=== PATIENT | male | born 1965 | race Caucasian/White ===

== ENCOUNTER 2018-03-11 22:25 | Inpatient (IN) ==
[2018-03-11] MEDS ORDERED: Sod Chloride 0.9% Inj 1,000 ML IV.SIG ONE (22:35)
--- NOTE | 2018-03-11 22:41 | ED ---
HPI General Chief Complaint: Abdominal Pain Stated Complaint: Urinating Blood Time Seen by Provider: 03/11/18 22:38 Source: patient Mode of arrival: EMS Limitations: no limitations History of Present Illness HPI narrative: 52-year-old male the presents to the ED for evaluation of hematuria and right-sided abdominal pain. Per patient has had the pain on and off for the past week. Hematuria about the same time. Per patient his blood in the urine. He has a history of this in the past. He denies any history of kidney stones but states having a history of kidney disease and has had to have dialysis in the past. Per patient he currently does not undergo dialysis as he is homeless. He does have a significant history of drug abuse and uses cocaine. Last used about 3 hours ago. He denies any chest pain or shortness of breath. No fevers chills or sweats. His main concern is that the blood has not improved and he seems to be getting worse. No blood thinner use. No other medical issues. Pain per patient is 6 out of 10 in comes and goes. Currently no pain. He seems to start of the upper abdomen and goes to the lower abdomen. Related Data Home Medications Medication Instructions Recorded Confirmed No Known Home Medications 03/11/18 03/11/18 Allergies Allergy/AdvReac Type Severity Reaction Status Date / Time *MDRO Multi-Drug Resistant AdvReac Unknown Hives Uncoded 03/11/18 23:13 Organism Review of Systems ROS Unobtainable All other systems reviewed negative except as stated in HPI PMFSH History History Provided By: Patient Medical History Medical History Hypertension (Acute) Renal disease (Acute) Surgical History Surgical History No history of previous surgery (Acute) Social History Social History Substance History: No History of Abuse and Active Abuse Second Hand Smoke Exposure: No Smoking Status: Current every day smoker Tobacco Type: Cigarettes How Often Do You Have a Drink Containing Alcohol: Never Exam Narrative Exam Narrative: GENERAL: Well-appearing but very disheveled SKIN: Focused skin assessment warm/dry. Multiple skin lesions on the arms and legs. HEAD: Atraumatic. Normocephalic. EYES: Pupils equal and round. No scleral icterus. No injection or drainage. ENT: No nasal bleeding or discharge. Mucous membranes pink and moist. Tongue is midline. No uvula deviation. NECK: Trachea midline. No JVD. CARDIOVASCULAR: Regular rate and rhythm. No murmur appreciated. RESPIRATORY: No accessory muscle use. Clear to auscultation. Breath sounds equal bilaterally. GASTROINTESTINAL: Abdomen soft, non-tender, nondistended. Hepatic and splenic margins not palpable. MUSCULOSKELETAL: No obvious deformities. No clubbing. No cyanosis. No edema. Full range of motion of the upper and lower extremities bilaterally. 2+ pulses bilaterally. NEUROLOGICAL: Awake and alert. No obvious cranial nerve deficits. Motor grossly within normal limits. Normal speech. PSYCHIATRIC: Appropriate mood and affect; insight and judgment normal. Course Consultations Consultation #1: The patient's case including history, pertinent physical examination findings, and laboratory studies were discussed with Dr. Boyle. It was agreed that the patient would be admitted to the hospitalist service. Initial Documented Vital Signs Temperature 98.0 F 03/11/18 23:23 Last Documented Vital Signs Temperature 98.0 F 03/11/18 23:23 Pulse Rate 72 03/12/18 05:06 Respiratory Rate 20 03/12/18 05:06 Blood Pressure 193/117 H 03/12/18 05:06 Pulse Oximetry 94 L 03/12/18 05:06 Medical Decision Making LAZARA Attestation LAZARA supervised visit: Yes Attestation: I, Dr. Reed, have reviewed the advance practice practitioner's documentation and am in agreement, met with the patient face to face, made the diagnosis, and the medical decision making was done by me. The patient was initially evaluated by Jasson, the physician patient care nursing assistant. Please see their complete history and physical. *My assessment and Findings: The patient presents with reported history of flank pain and hematuria. The patient reports a history of similar symptoms, however he denies ever having kidney stones in the past. He reports that he has a history of kidney disease and has required dialysis in the past. During the course of the patient's emergency department visit, the patient's history, examination, and differential diagnosis were reviewed with the patient. The patient was placed on a equipment monitor phototypesetting with oximetry and frequent blood pressure monitoring. The patient had IV access obtained and blood work sent for analysis. The patient was initially provided normal saline IV fluids. The patient's laboratory studies were reviewed and remarkable for a white count of 5.7, platelets 136, normal differential, hemoglobin 12.1.PT PTT within normal limits, chemistry is remarkable for oh protein corrected calcium of 6.0 which was supplemented with calcium chloride, lipase 66, creatinine 9.82, chloride 113, bicarb 15.6, BUN 71, albumin 3.1. It was written for the patient to be administered a Keene catheter to gravity, however the patient had an total 500 cc of urine output while in the emergency department and preferred not to have a catheter placed. Catheter was held at this time as on CT scan there is no evidence of urinary retention. Radiology studies were reviewed and remarkable for CT scan of the abdomen and pelvis shows findings of chronic pancreatitis, fluid-filled mildly distended small bowel loops throughout the abdomen with stool identified in the colon, no findings of obstruction, may be mild hypodynamic ileus, no obvious etiology for the patient's flank pain and hematuria. No hydronephrosis or stones. The patient will be admitted to the hospital for renal failure, hypocalcemia. The patient's results were discussed with the patient, including the plan of care. I explained that further testing and/ or monitoring is indicated based on the patient's history, examination, and/ or laboratory findings. Therefore, I recommended admission for additional evaluation. The patient expressed understanding and was agreeable with this plan. The patient was admitted to the hospital in guarded condition and sent to a bed under the care of [facility] service. [facility] Narrative Medical decision making narrative: 52-year-old male the presents to the ED for evaluation of flank pain and hematuria. Patient was properly examined and was found to have signs and symptoms consistent appears to be likely kidney stone. Labs and imaging were ordered. Case was signed out to my attending pending disposition and plan. Differential Diagnosis Differential Diagnosis: Kidney stone versus hematuria versus kidney infection versus UTI Medical Records Medical records reviewed: Yes I reviewed the patient's medical records. Lab Data Result diagrams: 03/11/18 23:09 03/11/18 23:09 Lab Results 03/11/18 03/11/18 03/11/18 Range/Units 23:09 23:09 23:21 WBC 5.7 (4.0-11.0) th/mm3 RBC 4.30 L (4.50-5.90) mil/mm3 Hgb 12.1 L (13.0-17.0) gm/dL Hct 36.5 L (39.0-51.0) % MCV 84.9 (80.0-100.0) fL MCH 28.2 (27.0-34.0) pg MCHC 33.3 (32.0-36.0) % RDW 14.6 (11.6-17.2) % Plt Count 136 L (150-450) th/mm3 MPV 9.3 (7.0-11.0) fL Neut % (Auto) 67.3 (16.0-70.0) % Lymph % (Auto) 21.0 (9.0-44.0) % [place] % (Auto) 7.5 (0.0-8.0) % Eos % (Auto) 3.2 (0.0-4.0) % Baso % (Auto) 1.0 (0.0-2.0) % Neut # (Auto) 3.8 (1.8-7.7) th/mm3 Lymph # (Auto) 1.2 (1.0-4.8) th/mm3 [place] # (Auto) 0.4 (0.0-0.9) th/mm3 Eos # (Auto) 0.2 (0.0-0.4) th/mm3 Baso # (Auto) 0.1 (0.0-0.2) th/mm3 WBC Differential . Differential Comment Auto diff final PT 10.7 (9.8-11.6) sec INR 1.1 Ratio APTT 28.7 (24.3-30.1) sec Sodium 143 (136-145) meq/L Potassium 4.7 (3.5-5.1) meq/L Chloride 113 H (98-107) meq/L Carbon Dioxide 15.6 L (21.0-32.0) meq/L Anion Gap 14 (5-15) meq/L BUN 71 H (7-18) mg/dL Creatinine 9.82 H (0.60-1.30) mg/dL Estimated GFR 6 L (>89) mL/min Random Glucose 94 (74-106) mg/dL Calcium 5.9 L* (8.5-10.1) mg/dL Prot Corrected Calcium 6.0 L* (8.5-10.1) mg/dL Total Bilirubin 0.3 (0.2-1.0) mg/dL AST 22 (15-37) U/L ALT 23 (12-78) U/L Alkaline Phosphatase 78 (45-117) U/L Total Creatine Kinase 215 (39-308) U/L Total Protein 6.9 (6.4-8.2) g/dL Albumin 3.1 L (3.4-5.0) g/dL Lipase 66 L (73-393) U/L Urine Color (Yellw/Straw) Urine Clarity (Clear) Urine pH (5.0-8.5) Ur Specific [place] (1.002-1.035) Urine Protein (Neg-Trace) mg/dL Urine Glucose (UA) (Negative) mg/dL Urine Ketones (Negative) mg/dL Urine Occult Blood (Negative) Urine Nitrate (Negative) Urine Bilirubin (Negative) Urine Urobilinogen (Less than 2) mg/dL Ur Leukocyte Esterase (Negative) Urine RBC (0-3) /hpf Urine WBC (0-5) /hpf Urine Bacteria (None) /hpf Urine Yeast (None) /hpf Micro UA Comment Urine Culture Comments 03/12/18 Range/Units 00:04 WBC (4.0-11.0) th/mm3 RBC (4.50-5.90) mil/mm3 Hgb (13.0-17.0) gm/dL Hct (39.0-51.0) % MCV (80.0-100.0) fL MCH (27.0-34.0) pg MCHC (32.0-36.0) % RDW (11.6-17.2) % Plt Count (150-450) th/mm3 MPV (7.0-11.0) fL Neut % (Auto) (16.0-70.0) % Lymph % (Auto) (9.0-44.0) % [place] % (Auto) (0.0-8.0) % Eos % (Auto) (0.0-4.0) % Baso % (Auto) (0.0-2.0) % Neut # (Auto) (1.8-7.7) th/mm3 Lymph # (Auto) (1.0-4.8) th/mm3 [place] # (Auto) (0.0-0.9) th/mm3 Eos # (Auto) (0.0-0.4) th/mm3 Baso # (Auto) (0.0-0.2) th/mm3 WBC Differential Differential Comment PT (9.8-11.6) sec INR Ratio APTT (24.3-30.1) sec Sodium (136-145) meq/L Potassium (3.5-5.1) meq/L Chloride (98-107) meq/L Carbon Dioxide (21.0-32.0) meq/L Anion Gap (5-15) meq/L BUN (7-18) mg/dL Creatinine (0.60-1.30) mg/dL Estimated GFR (>89) mL/min Random Glucose (74-106) mg/dL Calcium (8.5-10.1) mg/dL Prot Corrected Calcium (8.5-10.1) mg/dL Total Bilirubin (0.2-1.0) mg/dL AST (15-37) U/L ALT (12-78) U/L Alkaline Phosphatase (45-117) U/L Total Creatine Kinase (39-308) U/L Total Protein (6.4-8.2) g/dL Albumin (3.4-5.0) g/dL Lipase (73-393) U/L Urine Color Red (Yellw/Straw) Urine Clarity Hazy H (Clear) Urine pH 6.0 (5.0-8.5) Ur Specific [place] 1.008 (1.002-1.035) Urine Protein 500 or greater (Neg-Trace) mg/dL Urine Glucose (UA) 50 (Negative) mg/dL Urine Ketones Negative (Negative) mg/dL Urine Occult Blood Large H (Negative) Urine Nitrate Negative (Negative) Urine Bilirubin Negative (Negative) Urine Urobilinogen Less than 2 (Less than 2) mg/dL Ur Leukocyte Esterase Negative (Negative) Urine RBC (0-3) /hpf Urine WBC 8 H (0-5) /hpf Urine Bacteria Occasional H (None) /hpf Urine Yeast Few H (None) /hpf Micro UA Comment Culture not ind Urine Culture Comments Culture not ind Imaging Data Radiologist's impression: Abdomen/Pelvis CT 03/11/18 22:35 CONCLUSION: 1. CT findings characteristic of chronic pancreatitis. 2. Fluid-filled, mildly distended small bowel loops throughout the abdomen with stool identified in the colon. No findings of obstruction, however. Findings could represent a mild hypodynamic ileus. 3. I do not see an obvious etiology for the patient's flank pain and hematuria. Specifically, no hydronephrosis or stones. Discharge Plan Discharge Disposition Patient Disposition: 30 Still Patient Discharge Details Diagnosis: Acute renal failure, Hypocalcemia Physicians Team ED Provider: Nathalie Reed ED Midlevel Provider: Jasson Patricio Primary Care Provider: Primary Care Donna Roman Attending Provider: Mirlande Bush Other Providers: David Smith Discharge Interventions Interventions: Vital Signs Last Done: 03/11/18 23:26 Status ED Status: Admitted Patient
[2018-03-11 23:24] LABS: Baso # (Auto) 0.1 th/mm3 (0.0-0.2); Eos # (Auto) 0.2 th/mm3 (0.0-0.4); Eos % (Auto) 3.2 % (0.0-4.0); Hematocrit 36.5 % (39.0-51.0); Hemoglobin 12.1 gm/dL (13.0-17.0); Lymph # (Auto) 1.2 th/mm3 (1.0-4.8); Mean Corpuscular HGB Conc 33.3 % (32.0-36.0); Mean Corpuscular Hemoglobin 28.2 pg (27.0-34.0); Mean Corpuscular Volume 84.9 fL (80.0-100.0); Mean Platelet Volume 9.3 fL (7.0-11.0); Mono # (Auto) 0.4 th/mm3 (0.0-0.9); Mono % (Auto) 7.5 % (0.0-8.0); Neut # (Auto) 3.8 th/mm3 (1.8-7.7); Neut % (Auto) 67.3 % (16.0-70.0); Platelet Count 136 th/mm3 (150-450); Red Cell Distribution Width 14.6 % (11.6-17.2); White Blood Count 5.7 th/mm3 (4.0-11.0)
--- NOTE | 2018-03-11 23:37 | CT ---
EXAM DATE: 03/11/2018 10:57 PM EDT AGE/SEX: 52 years / Male INDICATIONS: Right lower quadrant pain, hematuria. CLINICAL DATA: This is the patient's initial encounter. Patient reports that signs and symptoms have been present for 1 week and indicates a pain score of 4/10. MEDICAL/SURGICAL HISTORY: Hypertension. Renal disease. None. RADIATION DOSE: 6.64 CTDI (mGy) COMPARISON: [facility] [place], CT ABDOMEN & PELVIS W/O CONTRAST, 01/06/2014. . TECHNIQUE: Multiple contiguous axial images were obtained through the abdomen. Images were obtained using multiple row detector helical technique. Using automated exposure control and adjustment of the mA and/or kV according to patient size, radiation dose was kept as low as reasonably achievable to o btain optimal diagnostic quality images. DICOM format image data is available electronically for rev iew and comparison. FINDINGS: Lower Lungs: Linear atelectasis/scarring in the lingula. Punctate granulomatous type calcification in the medial right lung base. Lung bases are otherwise clear Liver: The liver has a homogeneous density without space-occupying lesion. There is no dilation of th e biliary tree. Spleen: Homogeneous density without enlargement. Pancreas: Extensive calcification throughout the pancreas characteristic of chronic pancreatitis Kidneys: Normal in size and shape. No evidence of mass or hydronephrosis. Adrenal Glands: Unremarkable. Aorta: The aorta and proximal iliac vessels are grossly unremarkable without aneurysmal dilation. Bowel/Mesentery: Fluid-filled small bowel loops throughout the abdomen. Stool identified in the prox imal colon. Pattern is nonobstructive. Abdominal Wall: Intact. Retroperitoneum: No evidence of adenopathy in the retrocrural, para-aortic, or deep pelvic regions. Bladder: Contours are smooth. Reproductive Organs: Prostate is prominent at 4.1 cm Inguinal: The inguinal region is unremarkable without evidence of adenopathy. Bony Structures: Unremarkable. CONCLUSION: 1. CT findings characteristic of chronic pancreatitis. 2. Fluid-filled, mildly distended small bowel loops throughout the abdomen with stool identified in the colon. No findings of obstruction, however. Findings could represent a mild hypodynamic ileus. 3. I do not see an obvious etiology for the patient's flank pain and hematuria. Specifically, no hyd ronephrosis or stones. Electronically signed by: Ulices Sanford MD 03/11/2018 11:35 PM EDT
[2018-03-11 23:46] LABS: Albumin 3.1 g/dL (3.4-5.0); Calcium 5.9 mg/dL (8.5-10.1); Carbon Dioxide 15.6 meq/L (21.0-32.0); Potassium 4.7 meq/L (3.5-5.1); Total Protein 6.9 g/dL (6.4-8.2)
[2018-03-11 23:54] LABS: Activated Partial Thrombo Time 28.7 sec (24.3-30.1); INR 1.1 Ratio; Prothrombin Time 10.7 sec (9.8-11.6)
[2018-03-12] MEDS ORDERED: Calcium Gluconate Inj 1 GM in Dextrose 5% in Water Inj 100 ML IV.SIG ONE ×2 (00:01)
[2018-03-12] MEDS ORDERED: Sodium Chlor 0.9% Inj 500 ML IV.SIG ONE (00:01)
[2018-03-12] MEDS: Sod Chloride 0.9% Inj 1,000 ML IV.CONT SCH ×2 (00:26→12:15)
[2018-03-12 00:27] LABS: Bacteria,Urine Occasional /hpf; Bilirubin,Urine Negative (Negative); Clarity,Urine Hazy (Clear); Color,Urine Red (Yellw/Straw); Glucose,Urine (UA) 50 mg/dL (Negative); Leukocyte Esterase,Urine Negative (Negative); Nitrite,Urine Negative (Negative); Specific Gravity,Urine 1.008 (1.002-1.035)
[2018-03-12] MEDS ORDERED: Calcium Chloride Inj 1 GM/10 ML Syringe IV.PUSH ONE (00:59)
--- NOTE | 2018-03-12 02:39 | P.HPIM ---
History of Present Illness Primary Care Physician: No Primary Care Physician History of Present Illness: 52 y/o male with a history of HTN presented to the ED with complaints of decreased urination and hematuria for the last week. He states that for the last week he has been having blood in his urine with associated weakness. Denies any chest pain, sob, nausea or dysuria. He states years ago he had the same situation and underwent dialysis temporary. He states he does not take any medications or see a pcp. Inpatient Certification: I certify that the inpatient services were ordered in accordance with Medicare regulations governing the order. This includes certification that hospital inpatient services are reasonable and necessary and in the case of services not specified as inpatient-only under 42 CFR 419.22(n), that they are appropriately provided as inpatient services in accordance to with the 2-midnight benchmark under 43 CFR 412.3(e) Estimated Total Length of Stay (Days): 2 Plans for Post Hospital Care: Home Review of Systems All other systems reviewed negative except as stated in HPI [facility] - History History Provided By: Patient - Medical History Medical History: Medical History (Last Reviewed 03/11/18 @ 22:39 by KARISSA Garcia) Hypertension Renal disease - Surgical History Surgical History: Surgical History (Last Updated 03/12/18 @ 02:34 by NELLIE Carrion) No history of previous surgery - Tobacco History Second Hand Smoke Exposure: No Tobacco Use In Past 30 Days: Yes Smoking Status: Current every day smoker Tobacco Type: Cigarettes - Alcohol History How Often Do You Have a Drink Containing Alcohol: Never - Substance Use History Substance History: No History of Abuse, Active Abuse - Substance Use Type Crack/Cocaine Status: Active Route Used: Inhalation, Intravenously Reason for Use: Calm Down, Feels Good, Get High - Immunization History Tetanus Immunization: Unsure Hx Influenza Vaccine This Season: No Medications and Allergies Active Medications: Active Medications Sodium Chloride (Ns Inj) 1,000 mls @ 125 mls/hr IV.CONT .Q8H MELISSA Last Admin: 03/12/18 00:26 Dose: 125 mls/hr Allergies Allergy/AdvReac Type Severity Reaction Status Date / Time *MDRO Multi-Drug Resistant AdvReac Unknown Hives Uncoded 03/11/18 23:13 Organism Home Medications Medication Instructions Recorded Confirmed Type No Known Home Medications 03/11/18 03/11/18 History Exam Vital signs: Vital Signs 03/11/18 23:23 03/11/18 23:26 Temperature 98.0 F Pulse Rate 75 Respiratory Rate 18 Blood Pressure 165/111 H Pulse Oximetry 95 Intake & Output 03/11/18 03/11/18 03/12/18 06:59 18:59 06:59 Weight 78 kg Narrative: GENERAL: This is a well-nourished, well-developed patient, in no apparent distress. CARDIOVASCULAR: Regular rate and rhythm without murmurs, gallops, or rubs. RESPIRATORY: Clear to auscultation. Breath sounds equal bilaterally. No wheezes , rales, or rhonchi. GASTROINTESTINAL: Abdomen soft, non-tender, nondistended. Normal active bowel sounds MUSCULOSKELETAL: Extremities without clubbing, cyanosis, or edema. NEURO: Alert & Oriented x4 to person, place, time, situation. Moves all ext x4 Results - Labs CBC & Chem 7: 03/11/18 23:09 03/11/18 23:09 Labs: Short CBC 03/11/18 Range/Units 23:09 WBC 5.7 (4.0-11.0) th/mm3 Hgb 12.1 L (13.0-17.0) gm/dL Hct 36.5 L (39.0-51.0) % Plt Count 136 L (150-450) th/mm3 BMP 03/11/18 23:09 Sodium 143 Potassium 4.7 Chloride 113 H Carbon Dioxide 15.6 L BUN 71 H Creatinine 9.82 H Calcium 5.9 L* Cardiac Enzymes 03/11/18 Range/Units 23:09 Total Creatine Kinase 215 (39-308) U/L Liver Function 03/11/18 Range/Units 23:09 Total Bilirubin 0.3 (0.2-1.0) mg/dL AST 22 (15-37) U/L ALT 23 (12-78) U/L Alkaline Phosphatase 78 (45-117) U/L Albumin 3.1 L (3.4-5.0) g/dL Urine 03/12/18 Range/Units 00:04 Urine Color Red (Yellw/Straw) Urine Clarity Hazy H (Clear) Urine pH 6.0 (5.0-8.5) Ur Specific [place] 1.008 (1.002-1.035) Urine Protein 500 or greater (Neg-Trace) mg/dL Urine Glucose (UA) 50 (Negative) mg/dL - Imaging Impressions Abdomen/Pelvis CT 03/11/18 22:35 CONCLUSION: 1. CT findings characteristic of chronic pancreatitis. 2. Fluid-filled, mildly distended small bowel loops throughout the abdomen with stool identified in the colon. No findings of obstruction, however. Findings could represent a mild hypodynamic ileus. 3. I do not see an obvious etiology for the patient's flank pain and hematuria. Specifically, no hydronephrosis or stones. Caprini VTE Risk Assessment Caprini VTE Risk Assessment: No/Low Risk (score <= 1) Caprini Risk Assessment Model: Point Value = 1 Point Value = 2 Point Value = 3 Point Value = 5 Age 41-60 Minor surgery BMI > 25 kg/m2 Swollen legs Varicose veins or History of unexplained or recurrent spontaneous Oral contraceptives or hormone replacement Sepsis (< 1 month) Serious lung disease, including pneumonia (< 1 month) Abnormal pulmonary function Acute myocardial infarction Congestive heart failure (< 1 month) History of inflammatory bowel disease Medical patient at bed rest Age 61-74 Arthroscopic surgery Major open surgery (> 45 min) Laparoscopic surgery (> 45 min) Malignancy Confined to bed (> 72 hours) Immobilizing plaster cast Central venous access Age >= 75 History of VTE Family history of VTE Factor V Leiden Prothrombin [id number] Lupus anticoagulant Anticardiolipin antibodies Elevated serum homocysteine Heparin-induced thrombocytopenia Other congenital or acquired thrombophilia Stroke (< 1 month) Elective arthroplasty Hip, pelvis, or leg fracture Acute spinal cord injury (< 1 month) Prophylaxis Regimen: Total Risk Factor Score Risk Level Prophylaxis Regimen 0-1 Low Early ambulation 2 Moderate Order ONE of the following: *Sequential Compression Device (SCD) *Heparin 5000 units SQ BID 3-4 Higher Order ONE of the following medications: *Heparin 5000 units SQ TID *Enoxaparin/Lovenox 40 mg SQ daily (WT < 150 kg, CrCl > 30 mL/min) *Enoxaparin/Lovenox 30 mg SQ daily (WT < 150 kg, CrCl > 10-29 mL/min) *Enoxaparin/Lovenox 30 mg SQ BID (WT < 150 kg, CrCl > 30 mL/min) AND/OR *Sequential Compression Device (SCD) 5 or more Highest Order ONE of the following medications: *Heparin 5000 units SQ TID (Preferred with Epidurals) *Enoxaparin/Lovenox 40 mg SQ daily (WT < 150 kg, CrCl > 30 mL/min) *Enoxaparin/Lovenox 30 mg SQ daily (WT < 150 kg, CrCl > 10-29 mL/min) *Enoxaparin/Lovenox 30 mg SQ BID (WT < 150 kg, CrCl > 30 mL/min) AND *Sequential Compression Device (SCD) Assessment and Plan - Plan 52 y/o male with a history of HTN presented to the ED with complaints of decreased urination and hematuria for the last week. Acute renal failure, creatine 9.[address] reviewed and shows no hydronephrosis or stones. -Consult nephrology for evaluation -Avoid nephrotoxins -IVF Hypocalcemia Calcium 5.9 -1 gm calcium given -Labs in AM DVT prophylaxis: Heparin Discussed Condition With: Patient and RN
[2018-03-12 07:56] LABS: Baso % (Auto) 0.9 % (0.0-2.0); Eos # (Auto) 0.2 th/mm3 (0.0-0.4); Eos % (Auto) 4.3 % (0.0-4.0); Hematocrit 36.1 % (39.0-51.0); Hemoglobin 11.9 gm/dL (13.0-17.0); Lymph # (Auto) 1.3 th/mm3 (1.0-4.8); Lymph % (Auto) 26.7 % (9.0-44.0); Mean Corpuscular HGB Conc 33.1 % (32.0-36.0); Mean Corpuscular Hemoglobin 28.3 pg (27.0-34.0); Mean Corpuscular Volume 85.6 fL (80.0-100.0); Mean Platelet Volume 9.3 fL (7.0-11.0); Mono # (Auto) 0.4 th/mm3 (0.0-0.9); Mono % (Auto) 7.9 % (0.0-8.0); Neut # (Auto) 2.8 th/mm3 (1.8-7.7); Neut % (Auto) 60.2 % (16.0-70.0); Platelet Count 130 th/mm3 (150-450); Red Blood Count 4.22 mil/mm3 (4.50-5.90); Red Cell Distribution Width 14.8 % (11.6-17.2); White Blood Count 4.7 th/mm3 (4.0-11.0)
[2018-03-12 08:27] LABS: Calcium 6.3 mg/dL (8.5-10.1); Carbon Dioxide 14.4 meq/L (21.0-32.0); Potassium 4.9 meq/L (3.5-5.1)
[2018-03-12 08:42] LABS: Total Protein 6.8 g/dL (6.4-8.2)
[2018-03-12] MEDS: hydrALAZINE 50 MG Tablet PO SCH ×3 (08:43→18:18)
[2018-03-12] MEDS: amLODIPine 10 MG Tablet PO SCH (08:43)
[2018-03-12] MEDS ORDERED: CALCIUM CHLORIDE IV.SIG ONE (12:00)
[2018-03-12] MEDS ORDERED: SODIUM CHLOR 0.9% IV.SIG ONE (12:00)
[2018-03-12 12:15] LABS: Amphetamine Screen,Urine Neg (Neg); Barbiturate Screen,Urine Neg (Neg); Cannabinoid Screen,Urine Neg (Neg); Cocaine Screen,Urine Pos (Neg); Opiate Screen,Urine Neg (Neg)
[2018-03-12 14:57] LABS: Hepatitits B Surface Antigen Nonreactive (Nonreactive)
[2018-03-12 15:23] LABS: Hepatitis A IgM Antibody Nonreactive (Nonreactive)
--- NOTE | 2018-03-12 16:06 | P.CONNP ---
<Sydnee Morrison - Last Filed: 03/12/18 16:25> History of Present Illness Service: Nephrology Consult date: 03/12/18 Reason for Consult: Acute on CKD Primary Care Provider: No Primary Care Physician Family Provider: No Primary Care Physician Chief Complaint: Hematuria History of Present Illness: This is a disheveled and homeless 52 y/o male patient. He came to ER for hematuria and decreased urine output for two weeks. PMH includes Hepatitis C ( untreated ), HTN, tobacco use, cocaine use, chronic pancreatitis. He also has CKD. He was on HD for HARSH in 2013, unclear for how long. He had membranous GN biopsy proven and was on oral prednisone for some time. In 2016 his creatinine was 2.3. The patient was lost to follow up, does not have a PCP, and does not take care of himself. He comes to the hospital with a Creatinine over 9, BUN 71 , CO2 14, K 4.9. We were consulted to assist with management. He is making urine , and is a full code. Review of Systems Cardiovascular: Denies chest pain Respiratory: Denies shortness of breath Gastrointestinal: Denies abdominal pain Genitourinary: Reports blood in urine, Reports decreased urination, Denies difficulty urinating Musculoskeletal: Denies abnormal walking PMFSH - History History Provided By: Patient - Medical History Medical History: Medical History (Last Reviewed 03/11/18 @ 22:39 by KARISSA Garcia) Hypertension Renal disease - Surgical History Surgical History: Surgical History (Last Updated 03/12/18 @ 02:34 by NELLIE Carrion) No history of previous surgery - Tobacco History Second Hand Smoke Exposure: Yes Tobacco Use In Past 30 Days: Yes Smoking Status: Current every day smoker Tobacco Type: Cigarettes Packs Per Day: 1 - Alcohol History How Often Do You Have a Drink Containing Alcohol: Never - Substance Use History Substance History: No History of Abuse, Active Abuse - Substance Use Type Crack/Cocaine Status: Active Route Used: Inhalation, Intravenously Reason for Use: Calm Down, Feels Good, Get High - Immunization History Tetanus Immunization: Unsure Hx Influenza Vaccine This Season: No Medications and Allergies Allergies Allergy/AdvReac Type Severity Reaction Status Date / Time *MDRO Multi-Drug Resistant AdvReac Unknown Hives Uncoded 03/11/18 23:13 Organism Home Medications Medication Instructions Recorded Confirmed Type No Known Home Medications 03/11/18 03/11/18 History Active Medications: Active Medications Amlodipine Besylate (Norvasc) 10 mg PO DAILY [facility] Last Admin: 03/12/18 08:43 Dose: 10 mg Bumetanide (Bumex Inj) 2 mg IV.PUSH TID [facility] Clonidine HCl (Catapres) 0.1 mg PO Q6H PRN PRN Reason: SEE LABEL COMMENTS Hydralazine HCl (Apresoline) 50 mg PO TID [facility] Last Admin: 03/12/18 12:07 Dose: 50 mg Sodium Chloride (Ns Inj) 1,000 mls @ 125 mls/hr IV.CONT .Q8H [facility] Last Admin: 03/12/18 12:15 Dose: 125 mls/hr Ondansetron HCl (Zofran Odt) 4 mg PO Q6H PRN PRN Reason: NAUSEA OR VOMITING Exam Vital signs: Vital Signs 03/11/18 23:23 03/11/18 23:26 03/12/18 03:24 Temperature 98.0 F Pulse Rate 75 68 Respiratory Rate 18 20 Blood Pressure 165/111 H 180/113 H Pulse Oximetry 95 95 03/12/18 05:06 03/12/18 07:59 03/12/18 08:47 Temperature Pulse Rate 72 72 Respiratory Rate 20 16 Blood Pressure 193/117 H 203/125 H 195/130 H Pulse Oximetry 94 L 95 03/12/18 09:50 03/12/18 10:01 03/12/18 11:14 Temperature Pulse Rate 85 Respiratory Rate Blood Pressure 201/128 H 190/115 H 164/98 H Pulse Oximetry 03/12/18 12:03 Temperature Pulse Rate Respiratory Rate Blood Pressure 147/89 H Pulse Oximetry Intake & Output 03/11/18 03/12/18 03/12/18 18:59 06:59 18:59 Intake Total 1093.5 / 1093.5 Output Total 450 / 450 450 / 450 Balance -450 / -450 643.5 / 643.5 Weight 78 kg Intake: IV 1093.5 / 1093.5 NS Inj 1,000 ML @ 125 mls/hr IV 1000 / 1000 .CONT .Q8H [facility] Rx#:[id number] Calcium Chloride Inj 0.35 GM In 93.5 / 93.5 NS Inj 90 ML @ 100 mls/hr IV. SIG ONCE ONE Rx#:[id number] Output: Urine 450 / 450 450 / 450 - Constitutional no acute distress, chronically ill appearing, disheveled - Routine HEENT Exam Head: Present: normocephalic - Routine Neck Exam Present: supple - Routine Respiratory Exam Present: rales, rhonchi, wheezes. Absent: accessory muscle use - Routine Cardiovascular Exam Present: RRR, S1, S2. Absent: murmur - Routine Abdominal Exam Present: soft, normoactive bowel sounds - Routine Extremities Exam Present: edema, full ROM, pulses intact - Routine Skin Exam Present: intact, warm - Routine Neurological Exam Present: alert, oriented X3, CN II-XII intact Results - Lab Results 03/12/18 05:45 03/12/18 05:45 Most recent lab results Calcium 6.3 mg/dL (8.5-10.1) L* 03/12/18 05:45 - Image Kidney/bladder ultrasound: other (CT abd/pel reviewed ) Assessment and Plan - Assessment (1) Acute renal failure Code(s): N17.9 - Acute kidney failure, unspecified Status: Acute Plan: Acute on CKD. 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 He is nearing the need of starting dialysis. Start Bumex 2 mg TID IV. Make NPO tonight for PermCath placement tomorrow. We have asked the RN to make sure he has a shower in preparation of CVC placement to prevent infection. He is homeless and uninsured. Will need these issues addressed for outpatient HD plans. May need to enter the transitional program at [facility] [place]. PO fluids encouraged. Start oral bicarbonate for metabolic acidosis, will improve with dialysis. Obtain complement levels, hepatitis panel, cryoglobulin level. Repeat labs tomorrow Monitor urine output. (2) HTN (hypertension) Code(s): I10 - Essential (primary) hypertension Status: Acute Plan: On Amlodipine and Hydralazine. PRN clonidine was ordered. Start Bumex. (3) Secondary hyperparathyroidism of renal origin Code(s): N25.81 - Secondary hyperparathyroidism of renal origin Status: Acute Plan: With hypocalcemia Start vitamin D and calcitriol. Ordered IV calcium earlier today. <David Smith - Last Filed: 03/12/18 20:48> History of Present Illness Primary Care Provider: No Primary Care Physician Family Provider: No Primary Care Physician [facility] - Medical History Medical History: Medical History (Last Reviewed 03/11/18 @ 22:39 by KARISSA Garcia) Hypertension Renal disease - Surgical History Surgical History: Surgical History (Last Updated 03/12/18 @ 02:34 by NELLIE Carrion) No history of previous surgery Medications and Allergies Active Medications: Active Medications Amlodipine Besylate (Norvasc) 10 mg PO DAILY [facility] Last Admin: 03/12/18 08:43 Dose: 10 mg Bumetanide (Bumex Inj) 2 mg IV.PUSH TID [facility] Last Admin: 03/12/18 18:18 Dose: 2 mg Calcitriol (Rocaltrol) 0.25 mcg PO DAILY [facility] Last Admin: 03/12/18 18:18 Dose: 0.25 mcg Clonidine HCl (Catapres) 0.1 mg PO Q6H PRN PRN Reason: SEE LABEL COMMENTS Hydralazine HCl (Apresoline) 50 mg PO TID [facility] Last Admin: 03/12/18 18:18 Dose: 50 mg Ondansetron HCl (Zofran Odt) 4 mg PO Q6H PRN PRN Reason: NAUSEA OR VOMITING Vitamin D (Vitamin D3) 1,000 unit PO DAILY [facility] Last Admin: 03/12/18 18:18 Dose: 1,000 unit Exam Vital signs: Vital Signs 03/11/18 23:23 03/11/18 23:26 03/12/18 03:24 Temperature 98.0 F Pulse Rate 75 68 Respiratory Rate 18 20 Blood Pressure 165/111 H 180/113 H Pulse Oximetry 95 95 03/12/18 05:06 03/12/18 07:59 03/12/18 08:47 Temperature Pulse Rate 72 72 Respiratory Rate 20 16 Blood Pressure 193/117 H 203/125 H 195/130 H Pulse Oximetry 94 L 95 03/12/18 09:50 03/12/18 10:01 03/12/18 11:14 Temperature Pulse Rate 85 Respiratory Rate Blood Pressure 201/128 H 190/115 H 164/98 H Pulse Oximetry 03/12/18 12:03 03/12/18 16:00 Temperature 97.4 F L Pulse Rate 70 Respiratory Rate 20 Blood Pressure 147/89 H 149/90 H Pulse Oximetry 95 Intake & Output 03/12/18 03/12/18 03/13/18 06:59 18:59 06:59 Intake Total 1093.5 / 1093.5 Output Total 450 / 450 450 / 450 Balance -450 / -450 643.5 / 643.5 Weight 78 kg Intake: IV 1093.5 / 1093.5 NS Inj 1,000 ML @ 125 mls/hr IV 1000 / 1000 .CONT .Q8H [facility] Rx#:[id number] Calcium Chloride Inj 0.35 GM In 93.5 / 93.5 NS Inj 90 ML @ 100 mls/hr IV. SIG ONCE ONE Rx#:[id number] Output: Urine 450 / 450 450 / 450 Results - Lab Results 03/12/18 05:45 03/12/18 05:45 Most recent lab results Calcium 6.3 mg/dL (8.5-10.1) L* 03/12/18 05:45 Assessment and Plan - Assessment (1) Acute renal failure Code(s): N17.9 - Acute kidney failure, unspecified Status: Acute (2) HTN (hypertension) Code(s): I10 - Essential (primary) hypertension Status: Acute (3) Secondary hyperparathyroidism of renal origin Code(s): N25.81 - Secondary hyperparathyroidism of renal origin Status: Acute - Attending Attestation patient was seen and examined. He had developed HARSH in 2015 when he was on dialysis. He has Hepatitis C positivity. At that time, he had low complements, and positive Cryoglobulin. 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 It appears that his renal function improved and he was taken off dialytic support. He presents today with significantly declined renal function. Likely needs to restart dialysis. He has not followed with any cardroom manager or PCP. He has not had treatment for Hepatitis C. Bumex today, but most likely he will need to restart dialysis. <Sydnee Morrison - Last Filed: 03/12/18 16:25> (1) Acute renal failure Qualifiers: Acute renal failure type: unspecified Qualified Code(s): N17.9 - Acute kidney failure, unspecified <David Smith - Last Filed: 03/12/18 20:48> (1) Acute renal failure Qualifiers: Acute renal failure type: unspecified Qualified Code(s): N17.9 - Acute kidney failure, unspecified
[2018-03-12] MEDS: Calcitriol 0.25 MCG Capsule PO SCH (18:18)
[2018-03-13 03:51] LABS: Albumin/Creatinine Ratio 6902 mg/g (<17)
[2018-03-13 08:38] LABS: Calcium 6.9 mg/dL (8.5-10.1); Potassium 5.1 meq/L (3.5-5.1)
[2018-03-13] MEDS: hydrALAZINE 50 MG Tablet PO SCH ×3 (08:47→18:32)
[2018-03-13] MEDS: Calcitriol 0.25 MCG Capsule PO SCH (08:47)
[2018-03-13] MEDS: amLODIPine 10 MG Tablet PO SCH (08:47)
[2018-03-13 09:16] LABS: Total Protein 6.5 g/dL (6.4-8.2)
[2018-03-13] MEDS ORDERED: Acetaminophen 325 MG Tablet PO PRN (11:12)
[2018-03-13] MEDS ORDERED: Albumin Human 25% Inj 100 ML IV.SIG PRN (11:12)
[2018-03-13] MEDS ORDERED: Heparin 10,000 UNITS/10 ML Vial (for IV use) OTHER PRN (11:12)
[2018-03-13] MEDS ORDERED: Sod Chloride 0.9% Inj 1,000 ML OTHER PRN ×2 (11:12)
[2018-03-13] MEDS ORDERED: Sod Chloride 0.9% Inj 1,000 ML IV.CONT PRN (11:12)
[2018-03-13] MEDS ORDERED: Gelatin 12 MM/7 MM Topical Foam TOPICAL PRN (11:12)
--- NOTE | 2018-03-13 11:30 | P.PNNP ---
Subjective Interval history: Renal function has not improved. He is making urine. Currently NPO. <Sydnee Morrison - Last Filed: 03/13/18 11:20> Physical Exam Vital signs: Vital Signs 03/12/18 12:03 03/12/18 16:00 03/12/18 21:45 Temperature 97.4 F L 97.8 F Pulse Rate 70 78 Respiratory Rate 20 17 Blood Pressure 147/89 H 149/90 H 160/99 H Pulse Oximetry 95 97 03/13/18 00:50 03/13/18 05:45 Temperature 98.2 F 98 F Pulse Rate 60 69 Respiratory Rate 19 17 Blood Pressure 145/88 H Pulse Oximetry 98 98 Intake & Output 03/12/18 03/13/18 03/13/18 18:59 06:59 18:59 Intake Total 1093.5 / 1093.5 1400 / 1400 Output Total 450 / 450 400 / 400 Balance 643.5 / 643.5 1000 / 1000 Weight 78 kg Intake: IV 1093.5 / 1093.5 NS Inj 1,000 ML @ 125 mls/hr IV 1000 / 1000 .CONT .Q8H [facility] Rx#:[id number] Calcium Chloride Inj 0.35 GM In 93.5 / 93.5 NS Inj 90 ML @ 100 mls/hr IV. SIG ONCE ONE Rx#:[id number] Oral 1400 / 1400 Output: Urine 450 / 450 400 / 400 Other: # Bowel Movements 0 - Constitutional no acute distress, average body habitus, chronically ill appearing, disheveled - Routine HEENT Exam Head: Present: normocephalic Eye: Present: EOMI - Routine Neck Exam Present: supple, full ROM - Routine Respiratory Exam Present: CTA bilaterally. Absent: accessory muscle use - Routine Cardiovascular Exam Present: RRR, S1, S2 - Routine Abdominal Exam Present: soft, normoactive bowel sounds - Routine Extremities Exam Present: full ROM. Absent: edema - Routine Skin Exam Present: warm, lesions, wounds - Routine Neurological Exam Present: alert, oriented X3, CN II-XII intact - Detailed Neurological Exam: Coma Scale Eye Opening: Spontaneous Verbal Response: Oriented Motor Response: Obey commands Thaddeus Coma Scale Total: 15 - Routine Psychiatric Exam Present: normal affect, normal thought process <Sydnee Morrison - Last Filed: 03/13/18 11:20> Vital signs: Vital Signs 03/12/18 21:45 03/13/18 00:50 03/13/18 05:45 Temperature 97.8 F 98.2 F 98 F Pulse Rate 78 60 69 Respiratory Rate 17 19 17 Blood Pressure 160/99 H 145/88 H Pulse Oximetry 97 98 98 03/13/18 08:00 03/13/18 12:00 Temperature 98.2 F 98.1 F Pulse Rate 74 70 Respiratory Rate 23 22 Blood Pressure 153/89 H 140/80 Pulse Oximetry 93 L 96 Intake & Output 03/13/18 03/13/18 03/14/18 06:59 18:59 06:59 Intake Total 1400 / 1400 Output Total 400 / 400 1500 / 1500 Balance 1000 / 1000 -1500 / -1500 Weight 78 kg Intake: Oral 1400 / 1400 Output: Urine 400 / 400 Hemodialysis Amount 1500 / 1500 Other: # Bowel Movements 0 <David Smith - Last Filed: 03/13/18 19:40> Assessment and Plan - Assessment (1) Acute renal failure Code(s): N17.9 - Acute kidney failure, unspecified Status: Acute Qualifiers: Acute renal failure type: unspecified Qualified Code(s): N17.9 - Acute kidney failure, unspecified Plan: Prior biopsy proven MPGN, 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 In 2016 his Creatinine was 2.3. -Low complement levels noted. Renal function has not improved, although he is non oliguric Needs to start dialysis. NPO now, pending PermCath placement today, IR consulted. HD today and tomorrow (2 hr treatments both days), then we will maintain on TTS schedule. Metabolic acidosis should improve with dialysis Start high protein, low K diet. Obtain daily labs. We will schedule for a renal biopsy to determine if this is reversible or treatable. NPO after midnight again tonight. He is homeless and uninsured. Will need these issues addressed for outpatient HD plans. [place] need [place] [facility] but will need to be in a facility (SNF or LTC) prior to being accepted Appreciate CM assistance. . PO fluids encouraged. IVF not required. Epogen not required. (2) Secondary hyperparathyroidism of renal origin Code(s): N25.81 - Secondary hyperparathyroidism of renal origin Status: Acute Plan: With hypocalcemia On vitamin D and calcitriol. Given IV calcium on admission. (3) HTN (hypertension) Code(s): I10 - Essential (primary) hypertension Status: Acute Plan: On Amlodipine and Hydralazine. PRN clonidine was ordered. Start Bumex. <Sydnee Morrison - Last Filed: 03/13/18 11:20> - Assessment (1) Acute renal failure Code(s): N17.9 - Acute kidney failure, unspecified Status: Acute Qualifiers: Acute renal failure type: unspecified Qualified Code(s): N17.9 - Acute kidney failure, unspecified (2) Secondary hyperparathyroidism of renal origin Code(s): N25.81 - Secondary hyperparathyroidism of renal origin Status: Acute (3) HTN (hypertension) Code(s): I10 - Essential (primary) hypertension Status: Acute - Attending Attestation patient was seen and examined. Agree with above assessment and plan. <David Smith - Last Filed: 03/13/18 19:40>
--- NOTE | 2018-03-13 11:53 | P.PNIM ---
Subjective Interval history: Minimal improvements are seen in renal function overnight. Patient has no complaints when seen. He is n.p.o. for Vas-Cath placement later today. Physical Exam Vital signs: Vital Signs 03/12/18 12:03 03/12/18 16:00 03/12/18 21:45 Temperature 97.4 F L 97.8 F Pulse Rate 70 78 Respiratory Rate 20 17 Blood Pressure 147/89 H 149/90 H 160/99 H Pulse Oximetry 95 97 03/13/18 00:50 03/13/18 05:45 Temperature 98.2 F 98 F Pulse Rate 60 69 Respiratory Rate 19 17 Blood Pressure 145/88 H Pulse Oximetry 98 98 Intake & Output 03/12/18 03/13/18 03/13/18 18:59 06:59 18:59 Intake Total 1093.5 / 1093.5 1400 / 1400 Output Total 450 / 450 400 / 400 Balance 643.5 / 643.5 1000 / 1000 Weight 78 kg Intake: IV 1093.5 / 1093.5 NS Inj 1,000 ML @ 125 mls/hr IV 1000 / 1000 .CONT .Q8H [facility] Rx#:[id number] Calcium Chloride Inj 0.35 GM In 93.5 / 93.5 NS Inj 90 ML @ 100 mls/hr IV. SIG ONCE ONE Rx#:[id number] Oral 1400 / 1400 Output: Urine 450 / 450 400 / 400 Other: # Bowel Movements 0 Narrative: GENERAL: NAD, A&Ox3 HEAD: Normocephalic. NECK: Supple, trachea midline. No lymphadenopathy. EYES: No scleral icterus. No injection or drainage. CARDIOVASCULAR: Regular rate and rhythm without murmurs, gallops, or rubs. RESPIRATORY: Breath sounds equal bilaterally. No accessory muscle use. GASTROINTESTINAL: Abdomen soft, non-tender, nondistended. MUSCULOSKELETAL: No cyanosis, or edema. SKIN: Warm and dry. NEURO: No focal neurological deficits. Results - Labs CBC & Chem 7: 03/12/18 05:45 03/13/18 07:42 Laboratory Results - last 24 hr 03/12/18 03/12/18 03/12/18 09:45 09:45 11:18 Sodium Potassium Chloride Carbon Dioxide Anion Gap BUN Creatinine Estimated GFR Random Glucose Calcium Prot Corrected Calcium Total Protein Vitamin D 25-Hydroxy 26.9 L PTH Intact Ur Microalbumin mg/L 2644 U Creat (Microalbumin) 38.3 Microalb/Creat Ratio 6902 H Urine Opiates Screen Neg Ur Barbiturates Screen Neg Ur Amphetamines Screen Neg U Benzodiazepines Scrn Neg Urine Cocaine Screen Pos H U Cannabinoids Screen Neg Complement C3 Hepatitis A IgM Ab Hep Bs Antigen Hep B Core IgM Ab Hep C IgG Ab 03/12/18 03/12/18 03/12/18 11:18 12:20 12:20 Sodium Potassium Chloride Carbon Dioxide Anion Gap BUN Creatinine Estimated GFR Random Glucose Calcium Prot Corrected Calcium Total Protein Vitamin D 25-Hydroxy PTH Intact 376.6 H Ur Microalbumin mg/L U Creat (Microalbumin) Microalb/Creat Ratio Urine Opiates Screen Ur Barbiturates Screen Ur Amphetamines Screen U Benzodiazepines Scrn Urine Cocaine Screen U Cannabinoids Screen Complement C3 62 L Hepatitis A IgM Ab Nonreactive Hep Bs Antigen Nonreactive Hep B Core IgM Ab Nonreactive Hep C IgG Ab Reactive H 03/13/18 07:42 Sodium 146 H Potassium 5.1 Chloride 119 H Carbon Dioxide 12.0 L Anion Gap 15 BUN 76 H Creatinine 9.42 H Estimated GFR 6 L Random Glucose 89 Calcium 6.9 L* Prot Corrected Calcium 7.2 L* Total Protein 6.5 Vitamin D 25-Hydroxy PTH Intact Ur Microalbumin mg/L U Creat (Microalbumin) Microalb/Creat Ratio Urine Opiates Screen Ur Barbiturates Screen Ur Amphetamines Screen U Benzodiazepines Scrn Urine Cocaine Screen U Cannabinoids Screen Complement C3 Hepatitis A IgM Ab Hep Bs Antigen Hep B Core IgM Ab Hep C IgG Ab Assessment and Plan - Assessment (1) Acute renal failure Code(s): N17.9 - Acute kidney failure, unspecified Status: Acute (2) Hypocalcemia Code(s): E83.51 - Hypocalcemia Status: Acute - Plan 52-year-old male admitted secondary to acute renal failure Acute renal failure Creatinine remains significantly elevated above 9 Nephrology following Vas-Cath placement pending Dialysis may be needed Avoid nephrotoxins Continue IV fluids Hypocalcemia Improving Follow calcium levels DVT prophylaxis Heparin (1) Acute renal failure Qualifiers: Acute renal failure type: unspecified Qualified Code(s): N17.9 - Acute kidney failure, unspecified
[2018-03-13] MEDS ORDERED: fentaNYL Citrate Inj 250 MCG/5 ML Ampul ONE (13:36)
[2018-03-13] MEDS ORDERED: ceFAZolin 2 GM Premix Inj 2 GM/50 ML PIGGYBACK IV.SIG ONE (13:36)
[2018-03-13] MEDS ORDERED: Sodium Chlor 0.9% Inj 250 ML ONE (13:37)
[2018-03-13] MEDS ORDERED: *Heparin 10,000 UNITS/10 ML Vial Periprocedural ONLY ONE (14:35)
[2018-03-13] MEDS ORDERED: Lidocaine 1%/Epinephrine 1:100,000 Inj 30 ML Vial ONE (14:36)
[2018-03-13] MEDS ORDERED: Vancomycin Inj 1 GM/200 ML PIGGYBACK IV.SIG SCH (14:41)
[2018-03-13] MEDS ORDERED: ceFAZolin 2 GM Premix Inj 2 GM/50 ML PIGGYBACK IV.SIG SCH (15:11)
--- NOTE | 2018-03-13 16:10 | IR ---
EXAM DATE: 03/13/2018 3:44 PM EDT AGE/SEX: 52 years / Male INDICATIONS: Patient with history of HTN. Complaints of decreased urine output. CLINICAL DATA: This is the patient's initial encounter. Patient reports that signs and symptoms have been present for 1 week and indicates a pain score of 0/10. MEDICAL/SURGICAL HISTORY: Hypertension. Renal failure, acute. smoker . no known history COMPARISON: No prior exams available for comparison. FLUORO TIME (min): 0.5 IMAGE SERIES: 1 ACCESS SITE: SEDATION TIME (min): 45 MEDICATION(S): 3 mg midazolam (Versed) IV 150 mcg fentanyl (Sublimaze) IV Prophylactic antibiotics were administered with appropriate pre-procedure timing. Vancomycin within 2 hrs of procedure, Ancef (or alternative) within 1 hr of procedure. DEVICE(S): 23 CM BRAVO CATH . . PROCEDURE: 1. Ultrasound-guided venipuncture. 2. PermaCath placement. 3. Conscious sedation with continuous EKG and oximetry monitoring. The risks, benefits and alternatives to the procedure were explained and verbal and written consent w as obtained. The site was prepped in sterile fashion. Full sterile technique was used, including ca p, mask, sterile gloves and gown and a large sterile sheet. Hand hygiene and 2% chlorhexidine and/or betadine/alcohol prep was utilized per protocol for cutaneous antisepsis. Sterile gel and sterile p robe cover were utilized for ultrasound guidance. The skin and subcutaneous tissues were infiltrated with local anesthetic solution. With ultrasound and fluoroscopic guidance a dermatotomy was created over the prescribed vein. A micr opuncture set was used to access the targeted vein and serial dilatation was performed to accept the prescribed length catheter. A subcutaneous tunnel was created in a retrograde fashion the catheter w as pulled through the tunnel. The catheter was flushed and assembled and locked with heparin. The c atheter was sutured in place. Conscious sedation was performed with the prescribed dosages and duration as above in the presence of an independent trained radiology nurse to assist in the monitoring of the patient. EKG and oximetry remained stable throughout the procedure. The patient tolerated the procedure well and there were n o complications. The patient was sent to post anesthesia recovery in stable condition. Uncomplicated ultrasound and fluoroscopic guided central venous dialysis PermaCath placement as above . Electronically signed by: Bishop Nelson MD 03/13/2018 4:08 PM EDT
[2018-03-14 08:06] LABS: Baso % (Auto) 1.2 % (0.0-2.0); Eos # (Auto) 0.1 th/mm3 (0.0-0.4); Eos % (Auto) 2.2 % (0.0-4.0); Hematocrit 31.7 % (39.0-51.0); Hemoglobin 10.7 gm/dL (13.0-17.0); Lymph # (Auto) 0.8 th/mm3 (1.0-4.8); Lymph % (Auto) 20.2 % (9.0-44.0); Mean Corpuscular HGB Conc 33.7 % (32.0-36.0); Mean Corpuscular Hemoglobin 28.4 pg (27.0-34.0); Mean Corpuscular Volume 84.3 fL (80.0-100.0); Mean Platelet Volume 8.9 fL (7.0-11.0); Mono # (Auto) 0.3 th/mm3 (0.0-0.9); Mono % (Auto) 8.7 % (0.0-8.0); Neut # (Auto) 2.6 th/mm3 (1.8-7.7); Neut % (Auto) 67.7 % (16.0-70.0); Platelet Count 121 th/mm3 (150-450); Red Blood Count 3.76 mil/mm3 (4.50-5.90); Red Cell Distribution Width 14.5 % (11.6-17.2); White Blood Count 3.8 th/mm3 (4.0-11.0)
[2018-03-14 08:54] LABS: Albumin 2.3 g/dL (3.4-5.0); Calcium 6.9 mg/dL (8.5-10.1); Carbon Dioxide 20.1 meq/L (21.0-32.0); Potassium 3.7 meq/L (3.5-5.1); Total Protein 5.8 g/dL (6.4-8.2)
[2018-03-14] MEDS: Calcitriol 0.25 MCG Capsule PO SCH (09:26)
[2018-03-14] MEDS: amLODIPine 10 MG Tablet PO SCH (09:26)
[2018-03-14] MEDS: hydrALAZINE 50 MG Tablet PO SCH ×3 (09:27→17:42)
--- NOTE | 2018-03-14 11:39 | P.PNNP ---
Subjective Interval history: Permcath placed 03/12. He had HD yesterday. Seen during HD today. He is scheduled for renal biopsy today. <Sydnee Morrison - Last Filed: 03/14/18 11:35> Physical Exam Vital signs: Vital Signs 03/13/18 12:00 03/13/18 20:00 03/14/18 00:00 Temperature 98.1 F 97.7 F 97.9 F Pulse Rate 70 88 80 Respiratory Rate 22 18 18 Blood Pressure 140/80 175/89 H 164/88 H Pulse Oximetry 96 93 L 91 L 03/14/18 04:00 03/14/18 08:00 Temperature 97.6 F 98.8 F Pulse Rate 64 67 Respiratory Rate 18 18 Blood Pressure 118/46 L 168/93 H Pulse Oximetry 92 L 94 L Intake & Output 03/13/18 03/14/18 03/14/18 18:59 06:59 18:59 Output Total 1500 / 1500 Balance -1500 / -1500 Output: Hemodialysis Amount 1500 / 1500 - Constitutional no acute distress, average body habitus, disheveled, cooperative - Routine HEENT Exam Head: Present: normocephalic Eye: Present: EOMI ENT: Present: mucous membranes moist - Routine Neck Exam Present: supple, full ROM. Absent: JVD - Routine Respiratory Exam Present: CTA bilaterally. Absent: accessory muscle use - Routine Cardiovascular Exam Present: RRR, S1, S2 - Routine Abdominal Exam Present: soft, normoactive bowel sounds - Routine Extremities Exam Present: full ROM, pulses intact, normal capillary refill. Absent: edema - Routine Skin Exam Present: intact, dry, warm - Routine Neurological Exam Present: alert, oriented X3, CN II-XII intact - Detailed Neurological Exam: Coma Scale Eye Opening: Spontaneous Verbal Response: Oriented Motor Response: Obey commands [place] Coma Scale Total: 15 - Routine Psychiatric Exam Present: normal affect, normal thought process <Sydnee Morrison - Last Filed: 03/14/18 11:35> Vital signs: Vital Signs 03/13/18 20:00 03/14/18 00:00 03/14/18 04:00 Temperature 97.7 F 97.9 F 97.6 F Pulse Rate 88 80 64 Respiratory Rate 18 18 18 Blood Pressure 175/89 H 164/88 H 118/46 L Pulse Oximetry 93 L 91 L 92 L 07/26/18 08:00 03/14/18 14:20 Temperature 98.8 F 97.7 F Pulse Rate 67 83 Respiratory Rate 18 16 Blood Pressure 168/93 H 142/82 H Pulse Oximetry 94 L 94 L Intake & Output 03/13/18 03/14/18 03/14/18 18:59 06:59 18:59 Output Total 1500 / 1500 1500 / 1500 Balance -1500 / -1500 -1500 / -1500 Output: Hemodialysis Amount 1500 / 1500 1500 / 1500 <David Smith - Last Filed: 03/14/18 14:40> Assessment and Plan - Assessment (1) Acute renal failure Code(s): N17.9 - Acute kidney failure, unspecified Status: Acute Qualifiers: Acute renal failure type: unspecified Qualified Code(s): N17.9 - Acute kidney failure, unspecified Plan: Prior biopsy proven MPGN, 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 In 2015 his Creatinine was 2.3. -Low complement levels noted. Renal function has not improved He is non oliguric s/p PermCath placement 03/13 HD initiated yesterday 1.5L UF, tolerated well Seen during HD today on a 4K, 250 BFR, goal 1.5L. Continue HD TTS. Ordered high protein, low K diet. He can eat after biopsy today, D/W RN. Scheduled for a renal biopsy to determine if this is reversible or treatable. Obtain daily labs. He is homeless and uninsured. Will need these issues addressed for outpatient HD plans. Will need to enter the transitional program at [facility] [place], but will need to be in a facility (SNF or LTC) prior to being accepted Appreciate. CM assistance. Have asked the pt to look into [facility] or [facility] house. PO fluids encouraged. IVF not required. Epogen not required. (2) Secondary hyperparathyroidism of renal origin Code(s): N25.81 - Secondary hyperparathyroidism of renal origin Status: Acute Plan: With hypocalcemia On vitamin D and calcitriol. Given IV calcium on admission. (3) HTN (hypertension) Code(s): I10 - Essential (primary) hypertension Status: Acute Plan: On Amlodipine and Hydralazine. PRN clonidine was ordered. On Bumex, change to PO, reduce to 2 mg daily. <Sydnee Morrison - Last Filed: 03/14/18 11:35> - Assessment (1) Acute renal failure Code(s): N17.9 - Acute kidney failure, unspecified Status: Acute Qualifiers: Acute renal failure type: unspecified Qualified Code(s): N17.9 - Acute kidney failure, unspecified (2) Secondary hyperparathyroidism of renal origin Code(s): N25.81 - Secondary hyperparathyroidism of renal origin Status: Acute (3) HTN (hypertension) Code(s): I10 - Essential (primary) hypertension Status: Acute - Attending Attestation patient was seen and examined. Agree with above assessment and plan. <David Smith - Last Filed: 03/14/18 14:40>
[2018-03-14] MEDS ORDERED: Lidocaine 1%/Epinephrine 1:100,000 Inj 20 ML Vial ONE (12:41)
[2018-03-14] MEDS ORDERED: fentaNYL Citrate Inj 100 MCG/2 ML Ampul ONE (13:11)
--- NOTE | 2018-03-14 14:37 | CT ---
EXAM DATE: 03/14/2018 2:33 PM EDT AGE/SEX: 52 years / Male INDICATIONS: Right renal biopsy for renal function. CLINICAL DATA: This is the patient's initial encounter. Patient reports that signs and symptoms have been present for 1 day and indicates a pain score of 0/10. MEDICAL/SURGICAL HISTORY: Renal failure, acute. Hypertension. . permcath [place] [facility] [place]AST, [place]/11/2018. . BIOPSY SITE: Right renal MEDICATION(S): 2mg midazolam (Versed) IV 100mcg fentanyl (Sublimaze) IV DEVICE(S): 18 gauge Temno core biopsy needle Two core specimen(s) sent to the laboratory for pathologic evaluation. . . PROCEDURE: CT guided Right renal biopsy Conscious sedation with continuous EKG and oximetry monitoring. Prior to the procedure informed consent was obtained. Any appropriate prior imaging studies were rev iewed. Using automated exposure control and adjustment of the mA and/or kV according to patient size, radiat ion dose was kept as low as reasonably achievable to obtain optimal diagnostic quality images. DICOM format image data is available electronically for review and comparison. The site was prepped in a sterile fashion. Full sterile technique was used, including cap, mask, yandel rile gloves and gown and a large sterile sheet. Hand hygiene and 2% chlorhexidine and/or betadine/al cohol prep was utilized per protocol for cutaneous antisepsis. The skin and subcutaneous tissues wer e infiltrated with local anesthetic solution. With CT guidance the previously identified target was localized. Biopsy was performed using the presc ribed needle as above. Adequate hemostasis was obtained with compression at the puncture site. Follow-up CT scan reveals no hemorrhage. The patient tolerated the procedure well and there were no complications. The patient was returned to the Radiology Outpatient Unit in stable condition. FINDINGS: After obtaining consent, a CT-guided 18-gauge core biopsy of the right renal cortex was performed as described above. 1. Uncomplicated CT guided biopsy. Electronically signed by: Karl Huff MD 03/14/2018 2:36 PM EDT
--- NOTE | 2018-03-14 14:44 | P.PNIM ---
Subjective Interval history: Improvement in renal function markers, status post dialysis. No complaints from the patient. Repeat dialysis today. Physical Exam Vital signs: Vital Signs 03/13/18 20:00 03/14/18 00:00 03/14/18 04:00 Temperature 97.7 F 97.9 F 97.6 F Pulse Rate 88 80 64 Respiratory Rate 18 18 18 Blood Pressure 175/89 H 164/88 H 118/46 L Pulse Oximetry 93 L 91 L 92 L 03/14/18 08:00 03/14/18 14:20 Temperature 98.8 F 97.7 F Pulse Rate 67 83 Respiratory Rate 18 16 Blood Pressure 168/93 H 142/82 H Pulse Oximetry 94 L 94 L Intake & Output 03/13/18 03/14/18 03/14/18 18:59 06:59 18:59 Output Total 1500 / 1500 1500 / 1500 Balance -1500 / -1500 -1500 / -1500 Output: Hemodialysis Amount 1500 / 1500 1500 / 1500 Narrative: GENERAL: NAD, A&Ox3 HEAD: Normocephalic. NECK: Supple, trachea midline. No lymphadenopathy. EYES: No scleral icterus. No injection or drainage. CARDIOVASCULAR: Regular rate and rhythm without murmurs, gallops, or rubs. RESPIRATORY: Breath sounds equal bilaterally. No accessory muscle use. GASTROINTESTINAL: Abdomen soft, non-tender, nondistended. MUSCULOSKELETAL: No cyanosis, or edema. SKIN: Warm and dry. NEURO: No focal neurological deficits. Results - Labs CBC & Chem 7: 03/14/18 07:00 03/14/18 07:00 Laboratory Results - last 24 hr 03/14/18 03/14/18 07:00 07:00 WBC 3.8 L RBC 3.76 L Hgb 10.7 L Hct 31.7 L MCV 84.3 MCH 28.4 MCHC 33.7 RDW 14.5 Plt Count 121 L MPV 8.9 Neut % (Auto) 67.7 Lymph % (Auto) 20.2 [place] % (Auto) 8.7 H Eos % (Auto) 2.2 Baso % (Auto) 1.2 Neut # (Auto) 2.6 Lymph # (Auto) 0.8 L [place] # (Auto) 0.3 Eos # (Auto) 0.1 Baso # (Auto) 0.0 WBC Differential . Differential Comment Auto diff final Sodium 144 Potassium 3.7 D Chloride 110 H D Carbon Dioxide 20.1 L Anion Gap 14 BUN 55 H Creatinine 7.20 H Estimated GFR 8 L Random Glucose 126 H Calcium 6.9 L* Prot Corrected Calcium 7.6 L Total Bilirubin 0.3 AST 15 ALT 14 Alkaline Phosphatase 61 Total Protein 5.8 L D Albumin 2.3 L - Imaging Impressions Central Venous Line 03/13/18 00:00 CONCLUSION: Renal Biopsy CT 03/14/18 08:00 CONCLUSION: Assessment and Plan - Assessment (1) Acute renal failure Code(s): N17.9 - Acute kidney failure, unspecified Status: Acute (2) Hypocalcemia Code(s): E83.51 - Hypocalcemia Status: Acute - Plan 52-year-old male admitted secondary to acute renal failure Patient had dialysis yesterday and will have this again today. Continue to monitor renal function. Work up ongoing. Acute renal failure Creatinine remains significantly elevated above 9 Nephrology following Vas-Cath placement pending Dialysis may be needed Avoid nephrotoxins Continue IV fluids Hypocalcemia Improving Follow calcium levels DVT prophylaxis Heparin (1) Acute renal failure Qualifiers: Acute renal failure type: unspecified Qualified Code(s): N17.9 - Acute kidney failure, unspecified
[2018-03-14 15:00] LABS: Baso % (Auto) 0.9 % (0.0-2.0); Eos # (Auto) 0.1 th/mm3 (0.0-0.4); Eos % (Auto) 1.7 % (0.0-4.0); Hematocrit 36.9 % (39.0-51.0); Hemoglobin 12.2 gm/dL (13.0-17.0); Lymph # (Auto) 0.9 th/mm3 (1.0-4.8); Lymph % (Auto) 22.4 % (9.0-44.0); Mean Corpuscular HGB Conc 33.2 % (32.0-36.0); Mean Corpuscular Hemoglobin 28.1 pg (27.0-34.0); Mean Corpuscular Volume 84.9 fL (80.0-100.0); Mean Platelet Volume 8.8 fL (7.0-11.0); Mono # (Auto) 0.4 th/mm3 (0.0-0.9); Mono % (Auto) 10.4 % (0.0-8.0); Neut # (Auto) 2.6 th/mm3 (1.8-7.7); Neut % (Auto) 64.6 % (16.0-70.0); Platelet Count 145 th/mm3 (150-450); Red Blood Count 4.35 mil/mm3 (4.50-5.90); Red Cell Distribution Width 14.8 % (11.6-17.2)
[2018-03-14 16:41] LABS: Eos % (Auto) 1.3 % (0.0-4.0); Hematocrit 34.7 % (39.0-51.0); Hemoglobin 11.5 gm/dL (13.0-17.0); Lymph # (Auto) 0.7 th/mm3 (1.0-4.8); Lymph % (Auto) 20.5 % (9.0-44.0); Mean Corpuscular HGB Conc 33.3 % (32.0-36.0); Mean Corpuscular Hemoglobin 27.9 pg (27.0-34.0); Mean Corpuscular Volume 83.7 fL (80.0-100.0); Mean Platelet Volume 8.8 fL (7.0-11.0); Mono # (Auto) 0.3 th/mm3 (0.0-0.9); Mono % (Auto) 8.3 % (0.0-8.0); Neut # (Auto) 2.5 th/mm3 (1.8-7.7); Neut % (Auto) 68.9 % (16.0-70.0); Platelet Count 129 th/mm3 (150-450); Red Blood Count 4.14 mil/mm3 (4.50-5.90); Red Cell Distribution Width 14.7 % (11.6-17.2); White Blood Count 3.6 th/mm3 (4.0-11.0)
--- NOTE | 2018-03-14 16:51 | XR ---
EXAM DATE: 03/14/2018 4:48 PM EDT AGE/SEX: 52 years / Male INDICATIONS: Cough CLINICAL DATA: This is the patient's subsequent encounter. Patient reports that signs and symptoms h ave been present for 3 days and indicates a pain score of 0/10. MEDICAL/SURGICAL HISTORY: . Renal failure, acute. Hypertension None. COMPARISON: [facility] [place], CHEST SINGLE AP, 12/05/2015. . FINDINGS: A single AP erect portable view of the chest was obtained and demonstrates interval placement of a do uble-lumen right central venous catheter. There is no pneumothorax. There is mild hazy opacity in bot h lungs which appears mildly increased. There is no focal consolidation or effusion. The heart size i s at the upper limits of normal. The bony thorax is intact. CONCLUSION: 1. Interval placement of right double lumen central venous line. 2. Mild hazy opacity in both lungs which appears mildly increased. This could represent a viral pneu monitis or interstitial lung changes. Electronically signed by: Wayne Zhong MD 03/14/2018 4:50 PM EDT
[2018-03-15 07:37] LABS: Baso % (Auto) 1.1 % (0.0-2.0); Eos # (Auto) 0.1 th/mm3 (0.0-0.4); Eos % (Auto) 3.7 % (0.0-4.0); Hematocrit 35.3 % (39.0-51.0); Lymph # (Auto) 0.9 th/mm3 (1.0-4.8); Mean Corpuscular Hemoglobin 28.6 pg (27.0-34.0); Mean Corpuscular Volume 84.3 fL (80.0-100.0); Mean Platelet Volume 8.7 fL (7.0-11.0); Mono # (Auto) 0.3 th/mm3 (0.0-0.9); Mono % (Auto) 9.2 % (0.0-8.0); Neut # (Auto) 2.2 th/mm3 (1.8-7.7); Platelet Count 133 th/mm3 (150-450); Red Blood Count 4.18 mil/mm3 (4.50-5.90); Red Cell Distribution Width 14.5 % (11.6-17.2); White Blood Count 3.6 th/mm3 (4.0-11.0)
[2018-03-15 08:15] LABS: Alanine Aminotransferase 14 U/L (12-78); Albumin 2.6 g/dL (3.4-5.0); Alkaline Phosphatase 63 U/L (45-117); Anion Gap 8 meq/L (5-15); Aspartate Aminotransferase 20 U/L (15-37); Blood Urea Nitrogen 37 mg/dL (7-18); Calcium 7.5 mg/dL (8.5-10.1); Carbon Dioxide 27.9 meq/L (21.0-32.0); Chloride 108 meq/L (98-107); Glomerular Filtration Rate 10 mL/min (>89); Glucose,Random 90 mg/dL (74-106); Magnesium 1.7 mg/dL (1.5-2.5); Phosphorus 5.9 mg/dL (2.5-4.9); Potassium 3.9 meq/L (3.5-5.1); Sodium 144 meq/L (136-145); Total Protein 6.1 g/dL (6.4-8.2)
[2018-03-15] MEDS: amLODIPine 10 MG Tablet PO SCH (08:36)
[2018-03-15] MEDS: hydrALAZINE 50 MG Tablet PO SCH ×3 (08:36→17:18)
[2018-03-15] MEDS: Calcitriol 0.25 MCG Capsule PO SCH (08:36)
[2018-03-15 08:44] LABS: Hepatitits B Surface Antigen Nonreactive (Nonreactive)
[2018-03-15 09:58] LABS: Hepatitis A IgM Antibody Nonreactive (Nonreactive)
--- NOTE | 2018-03-15 10:02 | P.PNIM ---
Subjective Interval history: Downward trend in creatinine with dialysis. Patient has had dialysis for the past 2 days. No complaints from the patient. Physical Exam Vital signs: Vital Signs 03/14/18 14:20 03/14/18 16:00 03/14/18 18:16 Temperature 97.7 F 97.4 F L Pulse Rate 83 64 Respiratory Rate 16 16 Blood Pressure 142/82 H 155/94 H Pulse Oximetry 94 L 96 96 03/14/18 20:00 03/15/18 00:00 03/15/18 01:47 Temperature 97.5 F L 98.3 F Pulse Rate 97 H 72 Respiratory Rate 18 18 Blood Pressure 169/101 H 159/93 H Pulse Oximetry 96 94 L 03/15/18 03:40 03/15/18 04:00 03/15/18 07:51 Temperature 98.4 F 98.3 F Pulse Rate 70 70 Respiratory Rate 18 18 16 Blood Pressure 159/91 H 176/100 H Pulse Oximetry 93 L 91 L Intake & Output 03/14/18 03/15/18 03/15/18 18:59 06:59 18:59 Output Total 1500 / 1500 Balance -1500 / -1500 Output: Hemodialysis Amount 1500 / 1500 Other: # Voids 2 1 Narrative: GENERAL: NAD, A&Ox3 HEAD: Normocephalic. NECK: Supple, trachea midline. No lymphadenopathy. EYES: No scleral icterus. No injection or drainage. CARDIOVASCULAR: Regular rate and rhythm without murmurs, gallops, or rubs. RESPIRATORY: Breath sounds equal bilaterally. No accessory muscle use. GASTROINTESTINAL: Abdomen soft, non-tender, nondistended. MUSCULOSKELETAL: No cyanosis, or edema. SKIN: Warm and dry. NEURO: No focal neurological deficits. Results - Labs CBC & Chem 7: 03/15/18 06:46 03/15/18 06:16 Laboratory Results - last 24 hr 03/14/18 03/14/18 03/15/18 14:30 16:00 06:16 WBC 4.0 3.6 L RBC 4.35 L 4.14 L Hgb 12.2 L 11.5 L Hct 36.9 L 34.7 L MCV 84.9 83.7 MCH 28.1 27.9 MCHC 33.2 33.3 RDW 14.8 14.7 Plt Count 145 L 129 L MPV 8.8 8.8 Neut % (Auto) 64.6 68.9 Lymph % (Auto) 22.4 20.5 [place] % (Auto) 10.4 H 8.3 H Eos % (Auto) 1.7 1.3 Baso % (Auto) 0.9 1.0 Neut # (Auto) 2.6 2.5 Lymph # (Auto) 0.9 L 0.7 L [place] # (Auto) 0.4 0.3 Eos # (Auto) 0.1 0.0 Baso # (Auto) 0.0 0.0 WBC Differential . . Differential Comment Auto diff final Auto diff final Sodium 144 Potassium 3.9 Chloride 108 H Carbon Dioxide 27.9 Anion Gap 8 BUN 37 H Creatinine 5.75 H Estimated GFR 10 L Random Glucose 90 Calcium 7.5 L Phosphorus 5.9 H Magnesium 1.7 Total Bilirubin 0.3 AST 20 ALT 14 Alkaline Phosphatase 63 Total Protein 6.1 L Albumin 2.6 L Hepatitis A IgM Ab Hep Bs Antigen Hep B Core IgM Ab Hep C IgG Ab 03/15/18 03/15/18 06:46 06:46 WBC 3.6 L RBC 4.18 L Hgb 12.0 L Hct 35.3 L MCV 84.3 MCH 28.6 MCHC 34.0 RDW 14.5 Plt Count 133 L MPV 8.7 Neut % (Auto) 60.0 Lymph % (Auto) 26.0 [place] % (Auto) 9.2 H Eos % (Auto) 3.7 Baso % (Auto) 1.1 Neut # (Auto) 2.2 Lymph # (Auto) 0.9 L [place] # (Auto) 0.3 Eos # (Auto) 0.1 Baso # (Auto) 0.0 WBC Differential . Differential Comment Auto diff final Sodium Potassium Chloride Carbon Dioxide Anion Gap BUN Creatinine Estimated GFR Random Glucose Calcium Phosphorus Magnesium Total Bilirubin AST ALT Alkaline Phosphatase Total Protein Albumin Hepatitis A IgM Ab Nonreactive Hep Bs Antigen Nonreactive Hep B Core IgM Ab Nonreactive Hep C IgG Ab Reactive H - Imaging Impressions Chest X-Ray 03/14/18 00:00 CONCLUSION: Renal Biopsy CT 03/14/18 08:00 CONCLUSION: Assessment and Plan - Assessment (1) Acute renal failure Code(s): N17.9 - Acute kidney failure, unspecified Status: Acute (2) Hypocalcemia Code(s): E83.51 - Hypocalcemia Status: Acute - Plan 52-year-old male admitted secondary to acute renal failure No complaints from patient. Patient has had dialysis for the past 2 days which upon lab review appears to be improving his renal function values. Continue monitoring renal function. Labs ordered for further monitoring. Acute renal failure Creatinine remains significantly elevated above 9 Nephrology following Vas-Cath placement pending Dialysis may be needed Avoid nephrotoxins Continue IV fluids Hypocalcemia Improving Follow calcium levels DVT prophylaxis Heparin (1) Acute renal failure Qualifiers: Acute renal failure type: unspecified Qualified Code(s): N17.9 - Acute kidney failure, unspecified
--- NOTE | 2018-03-15 11:33 | P.PNNP ---
Subjective Interval history: He had dialysis and renal biopsy yesterday. Tolerated both well. No current complaints. <Sydnee Morrison - Last Filed: 03/15/18 11:29> Physical Exam Vital signs: Vital Signs 03/14/18 14:20 03/14/18 16:00 03/14/18 18:16 Temperature 97.7 F 97.4 F L Pulse Rate 83 64 Respiratory Rate 16 16 Blood Pressure 142/82 H 155/94 H Pulse Oximetry 94 L 96 96 03/14/18 20:00 03/15/18 00:00 03/15/18 01:47 Temperature 97.5 F L 98.3 F Pulse Rate 97 H 72 Respiratory Rate 18 18 Blood Pressure 169/101 H 159/93 H Pulse Oximetry 96 94 L 03/15/18 03:40 03/15/18 04:00 03/15/18 07:51 Temperature 98.4 F 98.3 F Pulse Rate 70 70 Respiratory Rate 18 18 16 Blood Pressure 159/91 H 176/100 H Pulse Oximetry 93 L 91 L 03/15/18 11:14 Temperature 98.0 F Pulse Rate 72 Respiratory Rate 16 Blood Pressure 134/81 Pulse Oximetry 92 L Intake & Output 03/14/18 03/15/18 03/15/18 18:59 06:59 18:59 Output Total 1500 / 1500 Balance -1500 / -1500 Output: Hemodialysis Amount 1500 / 1500 Other: # Voids 2 1 - Constitutional no acute distress, chronically ill appearing, disheveled - Routine HEENT Exam Head: Present: normocephalic Eye: Present: EOMI - Routine Neck Exam Present: supple, full ROM - Routine Respiratory Exam Present: CTA bilaterally. Absent: accessory muscle use - Routine Cardiovascular Exam Present: RRR, S1, S2 - Routine Abdominal Exam Present: soft, normoactive bowel sounds - Routine Extremities Exam Present: full ROM, pulses intact, vascular access. Absent: edema, tenderness - Routine Skin Exam Present: dry, warm, wounds Comments: scattered scabs lower legs - Routine Neurological Exam Present: alert, oriented X3, CN II-XII intact, moving all extremities - Detailed Neurological Exam: Coma Scale Eye Opening: Spontaneous Verbal Response: Oriented Motor Response: Obey commands [place] Coma Scale Total: 15 - Routine Psychiatric Exam Present: normal affect, normal thought process <Sydnee Morrison - Last Filed: 03/15/18 11:29> Vital signs: Vital Signs 03/14/18 16:00 03/14/18 18:16 03/14/18 20:00 Temperature 97.4 F L 97.5 F L Pulse Rate 64 97 H Respiratory Rate 16 18 Blood Pressure 155/94 H 169/101 H Pulse Oximetry 96 96 96 03/15/18 00:00 03/15/18 01:47 03/15/18 03:40 Temperature 98.3 F Pulse Rate 72 Respiratory Rate 18 18 Blood Pressure 159/93 H Pulse Oximetry 94 L 03/15/18 04:00 03/15/18 07:51 03/15/18 11:14 Temperature 98.4 F 98.3 F 98.0 F Pulse Rate 70 70 72 Respiratory Rate 18 16 16 Blood Pressure 159/91 H 176/100 H 134/81 Pulse Oximetry 93 L 91 L 92 L 03/15/18 15:17 Temperature 98.3 F Pulse Rate 83 Respiratory Rate 16 Blood Pressure 135/71 Pulse Oximetry 91 L Intake & Output 03/14/18 03/15/18 03/15/18 18:59 06:59 18:59 Output Total 1500 / 1500 Balance -1500 / -1500 Output: Hemodialysis Amount 1500 / 1500 Other: # Voids 2 1 <David Smith - Last Filed: 03/15/18 15:41> Assessment and Plan - Assessment (1) Acute renal failure Code(s): N17.9 - Acute kidney failure, unspecified Status: Acute Qualifiers: Acute renal failure type: unspecified Qualified Code(s): N17.9 - Acute kidney failure, unspecified Plan: Prior biopsy proven MPGN, 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 In 2016 his Creatinine was 2.3. -Low complement levels noted. Started on HD 03/13 and 03/14 We will continue HD support TTS he is non oliguirc s/p renal biopsy, awaiting results to see if this is reversible s/p PermCath placement 03/13 Ordered high protein, low K diet. Supplements added, needs nutritional support. Obtain daily labs. He is homeless and uninsured. Will need these issues addressed for outpatient HD plans. He will need to enter the transitional program at [facility] [place], but will need to have a residence with an address prior to being accepted. Appreciate CM assistance. Have asked the pt to look into retirement or senior care house. PO fluids encouraged. IVF not required. Epogen not required. (2) Secondary hyperparathyroidism of renal origin Code(s): N25.81 - Secondary hyperparathyroidism of renal origin Status: Acute Plan: With hypocalcemia On vitamin D and calcitriol. Start calcium acetate with meals for metabolic bone disorder. (3) HTN (hypertension) Code(s): I10 - Essential (primary) hypertension Status: Acute Plan: On Amlodipine, Bumex, and Hydralazine. PRN clonidine is ordered. <Sydnee Morrison - Last Filed: 03/15/18 11:29> - Assessment (1) Acute renal failure Code(s): N17.9 - Acute kidney failure, unspecified Status: Acute Qualifiers: Acute renal failure type: unspecified Qualified Code(s): N17.9 - Acute kidney failure, unspecified (2) Secondary hyperparathyroidism of renal origin Code(s): N25.81 - Secondary hyperparathyroidism of renal origin Status: Acute (3) HTN (hypertension) Code(s): I10 - Essential (primary) hypertension Status: Acute - Attending Attestation patient was seen and examined. Agree with above assessment and plan. Biopsy report: Hepatitis C related MPGN. Some degree of tubular injury. 50 % interstitial fibrosis. Continue dialysis treatments. Unclear if his renal function will improve. No cryoglobulinemic deposits. <David Smith - Last Filed: 03/15/18 15:41>
[2018-03-15] MEDS: Calcium Acetate 667 MG Capsule PO SCH ×2 (12:36→17:18)
[2018-03-16 07:50] LABS: Hepatitis C RNA (PCR) log IUs 5.96 (0-1.18)
[2018-03-16 09:17] LABS: Baso % (Auto) 1.1 % (0.0-2.0); Eos # (Auto) 0.2 th/mm3 (0.0-0.4); Eos % (Auto) 5.7 % (0.0-4.0); Hematocrit 34.5 % (39.0-51.0); Hemoglobin 11.5 gm/dL (13.0-17.0); Lymph # (Auto) 1.1 th/mm3 (1.0-4.8); Lymph % (Auto) 29.9 % (9.0-44.0); Mean Corpuscular HGB Conc 33.2 % (32.0-36.0); Mean Corpuscular Hemoglobin 28.3 pg (27.0-34.0); Mean Corpuscular Volume 85.2 fL (80.0-100.0); Mean Platelet Volume 8.9 fL (7.0-11.0); Mono # (Auto) 0.4 th/mm3 (0.0-0.9); Mono % (Auto) 10.8 % (0.0-8.0); Neut % (Auto) 52.5 % (16.0-70.0); Platelet Count 131 th/mm3 (150-450); Red Blood Count 4.05 mil/mm3 (4.50-5.90); Red Cell Distribution Width 14.9 % (11.6-17.2); White Blood Count 3.8 th/mm3 (4.0-11.0)
[2018-03-16 09:41] LABS: Albumin 2.5 g/dL (3.4-5.0); Calcium 7.4 mg/dL (8.5-10.1); Carbon Dioxide 26.3 meq/L (21.0-32.0); Total Protein 6.1 g/dL (6.4-8.2)
[2018-03-16] MEDS: hydrALAZINE 50 MG Tablet PO SCH ×3 (10:03→17:02)
--- NOTE | 2018-03-16 10:10 | P.PNNP ---
Subjective Interval history: Patient seen during HD, alert, no SOB, feeling better. Physical Exam Vital signs: Vital Signs 03/15/18 11:14 03/15/18 15:17 03/15/18 17:33 Temperature 98.0 F 98.3 F Pulse Rate 72 83 Respiratory Rate 16 16 Blood Pressure 134/81 135/71 Pulse Oximetry 92 L 91 L 91 L 03/15/18 20:38 03/15/18 21:45 03/16/18 00:00 Temperature 97.8 F 98.7 F Pulse Rate 75 89 70 Respiratory Rate 18 18 Blood Pressure 143/83 H 150/87 H Pulse Oximetry 93 L 94 L 03/16/18 02:57 03/16/18 04:00 03/16/18 06:39 Temperature 98 F Pulse Rate 66 Respiratory Rate 16 16 18 Blood Pressure 153/88 H Pulse Oximetry 96 03/16/18 08:00 03/16/18 08:05 Temperature 98.1 F Pulse Rate 63 79 Respiratory Rate 16 Blood Pressure 136/83 Pulse Oximetry 93 L Intake & Output 03/15/18 03/16/18 03/16/18 18:59 06:59 18:59 Intake Total 500 / 500 Output Total 375 / 375 1875 / 1875 Balance -375 / -375 -1375 / -1375 Weight 78 kg Intake: Oral 500 / 500 Output: Urine 375 / 375 375 / 375 Hemodialysis Amount 1500 / 1500 Other: # Voids 2 2 # Bowel Movements 0 Narrative: GENERAL: NAD, A&Ox3 HEAD: Normocephalic. NECK: Supple, trachea midline. No lymphadenopathy. EYES: No scleral icterus. No injection or drainage. CARDIOVASCULAR: Regular rate and rhythm without murmurs, gallops, or rubs. RESPIRATORY: Breath sounds equal bilaterally. No accessory muscle use. GASTROINTESTINAL: Abdomen soft, non-tender, nondistended. MUSCULOSKELETAL: No cyanosis, has mild leg edema. SKIN: Warm and dry. NEURO: No focal neurological deficits. 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 In 2015 his Creatinine was 2.3. -Low complement levels noted. Started on HD 03/13 and 03/14 We will continue HD support TTS he is non oliguirc s/p renal biopsy, awaiting results to see if this is reversible s/p PermCath placement 03/13 Ordered high protein, low K diet. Supplements added, needs nutritional support. Obtain daily labs. He is homeless and uninsured. Will need these issues addressed for outpatient HD plans. [place] [facility] [place] will need to have a residence with an address prior to being accepted. Appreciate CM assistance. Have asked the pt to look into skilled nursing or skilled nursing house. PO fluids encouraged. IVF not required. Epogen not required. HD now, still has elevated Creatinine. (2) Secondary hyperparathyroidism of renal origin Code(s): N25.81 - Secondary hyperparathyroidism of renal origin Status: Acute Plan: With hypocalcemia On vitamin D and calcitriol. Start calcium acetate with meals for metabolic bone disorder. (3) HTN (hypertension) Code(s): I10 - Essential (primary) hypertension Status: Acute Plan: On Amlodipine, Bumex, and Hydralazine. PRN clonidine is ordered.
[2018-03-16] MEDS: Heparin 10,000 UNITS/10 ML Vial (for IV use) OTHER PRN (10:23)
[2018-03-16] MEDS: Calcium Acetate 667 MG Capsule PO SCH ×3 (11:12→17:02)
[2018-03-16] MEDS: Calcitriol 0.25 MCG Capsule PO SCH (12:04)
[2018-03-16] MEDS: amLODIPine 10 MG Tablet PO SCH (12:04)
--- NOTE | 2018-03-16 13:52 | P.PNIM ---
Subjective Interval history: 52 y/o male with a history of HTN presented to the ED with complaints of decreased urination and hematuria for the last week. He states that for the last week he has been having blood in his urine with associated weakness. Denies any chest pain, sob, nausea or dysuria. He states years ago he had the same situation and underwent dialysis temporary. He states he does not take any medications or see a pcp. 7 Minimal improvements are seen in renal function overnight. Patient has no complaints when seen. He is n.p.o. for Vas-Cath placement later today. 03-14 Improvement in renal function markers, status post dialysis. No complaints from the patient. Repeat dialysis today. 03-15 Downward trend in creatinine with dialysis. Patient has had dialysis for the past 2 days. No complaints from the patient. 03-16 HAS HAD HD DAILY FOR 3 DAYS DW RN AND PT AND CM HAS RIGHT SIDE HD CATHETER AM LABS WILL NEED SAFE DC NOT A SAFE DC YET Physical Exam Vital signs: Vital Signs 03/15/18 15:17 03/15/18 17:33 03/15/18 20:38 Temperature 98.3 F 97.8 F Pulse Rate 83 75 Respiratory Rate 16 18 Blood Pressure 135/71 143/83 H Pulse Oximetry 91 L 91 L 93 L 03/15/18 21:45 03/16/18 00:00 03/16/18 02:57 Temperature 98.7 F Pulse Rate 89 70 Respiratory Rate 18 16 Blood Pressure 150/87 H Pulse Oximetry 94 L 03/16/18 04:00 03/16/18 06:39 03/16/18 08:00 Temperature 98 F 98.1 F Pulse Rate 66 63 Respiratory Rate 16 18 16 Blood Pressure 153/88 H 136/83 Pulse Oximetry 96 93 L 03/16/18 08:05 03/16/18 12:00 Temperature 97.6 F Pulse Rate 79 72 Respiratory Rate 16 Blood Pressure 161/100 H Pulse Oximetry 92 L Intake & Output 03/15/18 03/16/18 03/16/18 18:59 06:59 18:59 Intake Total 500 / 500 Output Total 375 / 375 4375 / 4375 Balance -375 / -375 -3875 / -3875 Weight 78 kg Intake: Oral 500 / 500 Output: Urine 375 / 375 375 / 375 Hemodialysis Amount 4000 / 4000 Other: # Voids 2 2 # Bowel Movements 0 Narrative: GENERAL: NAD, A&Ox3 HEAD: Normocephalic. NECK: Supple, trachea midline. No lymphadenopathy. RIGHT SIDE PERMACATH IN PLACE FOR HD EYES: No scleral icterus. No injection or drainage. CARDIOVASCULAR: Regular rate and rhythm without murmurs, gallops, or rubs. RESPIRATORY: Breath sounds equal bilaterally. No accessory muscle use. GASTROINTESTINAL: Abdomen soft, non-tender, nondistended. MUSCULOSKELETAL: No cyanosis, has mild leg edema. SKIN: Warm and dry. NEURO: No focal neurological deficits. Results - Labs CBC & Chem 7: 03/16/18 07:31 03/16/18 07:31 Laboratory Results - last 24 hr 03/12/18 03/16/18 03/16/18 12:20 07:31 07:31 WBC 3.8 L RBC 4.05 L Hgb 11.5 L Hct 34.5 L MCV 85.2 MCH 28.3 MCHC 33.2 RDW 14.9 Plt Count 131 L MPV 8.9 Neut % (Auto) 52.5 Lymph % (Auto) 29.9 [place] % (Auto) 10.8 H Eos % (Auto) 5.7 H Baso % (Auto) 1.1 Neut # (Auto) 2.0 Lymph # (Auto) 1.1 [place] # (Auto) 0.4 Eos # (Auto) 0.2 Baso # (Auto) 0.0 WBC Differential . Differential Comment Auto diff final Sodium 141 Potassium 4.0 Chloride 106 Carbon Dioxide 26.3 Anion Gap 9 BUN 47 H Creatinine 6.96 H Estimated GFR 8 L Random Glucose 84 Calcium 7.4 L* Prot Corrected Calcium 7.9 L Total Bilirubin 0.3 AST 23 ALT 13 Alkaline Phosphatase 61 Total Protein 6.1 L Albumin 2.5 L HCV RNA (PCR) IUs/ml 303145 H HCV RNA PCR log IUs/ml 5.96 H - Imaging Abdomen/Pelvis CT 03/11/18 22:35 CONCLUSION: 1. CT findings characteristic of chronic pancreatitis. 2. Fluid-filled, mildly distended small bowel loops throughout the abdomen with stool identified in the colon. No findings of obstruction, however. Findings could represent a mild hypodynamic ileus. 3. I do not see an obvious etiology for the patient's flank pain and hematuria. Specifically, no hydronephrosis or stones. Central Venous Line 03/13/18 00:00 CONCLUSION: Chest X-Ray 03/14/18 00:00 CONCLUSION: 1. Interval placement of right double lumen central venous line. 2. Mild hazy opacity in both lungs which appears mildly increased. This could represent a viral pneumonitis or interstitial lung changes. Renal Biopsy CT 03/14/18 08:00 CONCLUSION: - Procedures PERMACATH 03-13 BY IR RENAL BIOPSY 03-14 Assessment and Plan - Assessment (1) Acute renal failure Code(s): N17.9 - Acute kidney failure, unspecified Status: Acute (2) Hypocalcemia Code(s): E83.51 - Hypocalcemia Status: Acute - Plan 52-year-old male admitted secondary to acute renal failure No complaints from patient. Patient has had dialysis for the past 3 days which upon lab review appears to be improving his renal function values. Continue monitoring renal function. Labs ordered for further monitoring. Acute renal failure Creatinine remains significantly elevated BUT COMING DOWN WITH HD Nephrology following Vas-Cath placement 03-13 Dialysis ON MARCH 14, Avoid nephrotoxins Continue IV fluids MPGN HAS RELAPSED PER NEPHROLOGY HYPERTENSION POORLY CONTROLLED AT HOME HOMELESS WITH POOR ABILITY FOR FOLLOWUPS ETC Hypocalcemia Improving Follow calcium levels DVT prophylaxis Heparin Code Status: FULL CODE Discussed Condition With: RN AND PT AND CM Discharge Planning: WILL NEED PLACE FOR DC SINCE WILL NEED HD AT DC (1) Acute renal failure Qualifiers: Acute renal failure type: unspecified Qualified Code(s): N17.9 - Acute kidney failure, unspecified
[2018-03-17 07:20] LABS: Eos # (Auto) 0.2 th/mm3 (0.0-0.4); Eos % (Auto) 6.4 % (0.0-4.0); Hematocrit 36.1 % (39.0-51.0); Mean Corpuscular HGB Conc 33.3 % (32.0-36.0); Mean Corpuscular Hemoglobin 28.3 pg (27.0-34.0); Mean Corpuscular Volume 84.9 fL (80.0-100.0); Mean Platelet Volume 8.5 fL (7.0-11.0); Mono # (Auto) 0.3 th/mm3 (0.0-0.9); Mono % (Auto) 8.5 % (0.0-8.0); Neut # (Auto) 2.2 th/mm3 (1.8-7.7); Neut % (Auto) 58.1 % (16.0-70.0); Platelet Count 127 th/mm3 (150-450); Red Blood Count 4.25 mil/mm3 (4.50-5.90); Red Cell Distribution Width 14.4 % (11.6-17.2); White Blood Count 3.8 th/mm3 (4.0-11.0)
[2018-03-17 07:39] LABS: Albumin 2.7 g/dL (3.4-5.0); Anion Gap 8 meq/L (5-15); Blood Urea Nitrogen 39 mg/dL (7-18); Calcium 7.9 mg/dL (8.5-10.1); Carbon Dioxide 27.6 meq/L (21.0-32.0); Chloride 105 meq/L (98-107); Glucose,Random 93 mg/dL (74-106); Potassium 4.1 meq/L (3.5-5.1); Sodium 141 meq/L (136-145)
[2018-03-17 07:50] LABS: Alanine Aminotransferase 16 U/L (12-78); Alkaline Phosphatase 61 U/L (45-117); Aspartate Aminotransferase 25 U/L (15-37); Free T4 (Free Thyroxine) 0.89 ng/dL (0.76-1.46); Glomerular Filtration Rate 12 mL/min (>89); Phosphorus 5.2 mg/dL (2.5-4.9); Total Protein 6.3 g/dL (6.4-8.2)
[2018-03-17 10:26] LABS: Hemoglobin A1c 5.6 % (4.3-6.0)
[2018-03-17] MEDS: amLODIPine 10 MG Tablet PO SCH (10:53)
[2018-03-17] MEDS: Calcium Acetate 667 MG Capsule PO SCH ×3 (10:53→17:54)
[2018-03-17] MEDS: hydrALAZINE 50 MG Tablet PO SCH ×3 (10:53→17:58)
[2018-03-17] MEDS: Calcitriol 0.25 MCG Capsule PO SCH (10:53)
--- NOTE | 2018-03-17 11:59 | P.PNNP ---
Subjective Interval history: Patient seen alert, no SOB, feeling tired, not in distress. Physical Exam Vital signs: Vital Signs 03/16/18 12:00 03/16/18 16:00 03/16/18 20:00 Temperature 97.6 F 98.4 F 98.7 F Pulse Rate 72 66 70 Respiratory Rate 16 16 18 Blood Pressure 161/100 H 149/84 H 144/89 H Pulse Oximetry 92 L 94 L 94 L 03/16/18 23:52 03/17/18 00:00 03/17/18 04:00 Temperature 98 F 97.8 F Pulse Rate 68 69 70 Respiratory Rate 18 18 Blood Pressure 154/102 H 172/107 H Pulse Oximetry 95 95 03/17/18 08:00 Temperature 98.5 F Pulse Rate 63 Respiratory Rate 16 Blood Pressure 177/97 H Pulse Oximetry 93 L Intake & Output 03/16/18 03/17/18 03/17/18 18:59 06:59 18:59 Intake Total 500 / 500 Output Total 4375 / 4375 Balance -3875 / -3875 Weight 78.3 kg Intake: Oral 500 / 500 Output: Urine 375 / 375 Hemodialysis Amount 4000 / 4000 Other: # Voids 2 2 # Bowel Movements 0 Narrative: GENERAL: NAD, A&Ox3 HEAD: Normocephalic. NECK: Supple, trachea midline. No lymphadenopathy. RIGHT SIDE PERMACATH IN PLACE FOR HD EYES: No scleral icterus. No injection or drainage. CARDIOVASCULAR: Regular rate and rhythm without murmurs, gallops, or rubs. RESPIRATORY: Breath sounds equal bilaterally. No accessory muscle use. GASTROINTESTINAL: Abdomen soft, non-tender, nondistended. MUSCULOSKELETAL: No cyanosis, has mild leg edema. SKIN: Warm and dry. NEURO: No focal neurological deficits. 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 In 2015 his Creatinine was 2.3. -Low complement levels noted. Started on HD 03/13 and 03/14 We will continue HD support TTS he is non oliguirc s/p renal biopsy, awaiting results to see if this is reversible s/p PermCath placement 03/13 Ordered high protein, low K diet. Supplements added, needs nutritional support. Obtain daily labs. He is homeless and uninsured. Will need these issues addressed for outpatient HD plans. He will need to enter the transitional program at [facility], but will need to have a residence with an address prior to being accepted. Appreciate CM assistance. Have asked the pt to look into [facility] or [facility]. HD done yesterday, will need out patient HD arrangement. Dr. Smith will follow from AM. (2) Secondary hyperparathyroidism of renal origin Code(s): N25.81 - Secondary hyperparathyroidism of renal origin Status: Acute Plan: With hypocalcemia On vitamin D and calcitriol. Start calcium acetate with meals for metabolic bone disorder. (3) HTN (hypertension) Code(s): I10 - Essential (primary) hypertension Status: Acute Plan: On Amlodipine, Bumex, and Hydralazine. PRN clonidine is ordered.
--- NOTE | 2018-03-17 14:19 | P.PN ---
Subjective Interval history: Follow-up on patient with acute renal failure. Patient states he is doing well. He denies any acute medical complaints. Denies any chest pain or shortness of breath. Denies any fever or chills. Denies any nausea, vomiting or abdominal pain. States his last bowel movement was prior to this admission. Physical Exam Vital signs: Vital Signs 03/16/18 16:00 03/16/18 20:00 03/16/18 23:52 Temperature 98.4 F 98.7 F Pulse Rate 66 70 68 Respiratory Rate 16 18 Blood Pressure 149/84 H 144/89 H Pulse Oximetry 94 L 94 L 03/17/18 00:00 03/17/18 04:00 03/17/18 08:00 Temperature 98 F 97.8 F 98.5 F Pulse Rate 69 70 63 Respiratory Rate 18 18 16 Blood Pressure 154/102 H 172/107 H 177/97 H Pulse Oximetry 95 95 93 L 03/17/18 12:00 Temperature 97.9 F Pulse Rate 65 Respiratory Rate 14 Blood Pressure 161/95 H Pulse Oximetry 91 L Intake & Output 03/16/18 03/17/18 03/17/18 18:59 06:59 18:59 Intake Total 500 / 500 Output Total 4375 / 4375 Balance -3875 / -3875 Weight 78.3 kg Intake: Oral 500 / 500 Output: Urine 375 / 375 Hemodialysis Amount 4000 / 4000 Other: # Voids 2 2 # Bowel Movements 0 Narrative: GENERAL: This is a well-developed, well-nourished male patient, INAD, A&Ox3. Appears comfortable lying in bed. SKIN: Warm and dry. No generalized rash. HEENT: Atraumatic. Normocephalic. EOMI. No scleral icterus. No nasal drainage. MMM. Airway patent. NECK: Supple, trachea midline. No lymphadenopathy. RIGHT SIDE PERMACATH IN PLACE FOR HD CARDIOVASCULAR: Regular rate and rhythm without murmurs, gallops, or rubs. RESPIRATORY: Breath sounds equal bilaterally. No accessory muscle use. Clear to auscultation. GASTROINTESTINAL: Abdomen soft, non-tender, nondistended. MUSCULOSKELETAL: No cyanosis or edema noted. No obvious deformities. NEURO: Awake and alert. CN II-XII grossly intact. Able to move all extremities spontaneously. No focal neurological deficits. PSYCHIATRIC: Appropriate mood and affect. Calm and cooperative. Results - Labs CBC & Chem 7: 03/17/18 06:37 03/17/18 06:37 Laboratory Results - last 24 hr 03/17/18 03/17/18 03/17/18 06:37 06:37 06:37 WBC 3.8 L RBC 4.25 L Hgb 12.0 L Hct 36.1 L MCV 84.9 MCH 28.3 MCHC 33.3 RDW 14.4 Plt Count 127 L MPV 8.5 Neut % (Auto) 58.1 Lymph % (Auto) 26.0 [place] % (Auto) 8.5 H Eos % (Auto) 6.4 H Baso % (Auto) 1.0 Neut # (Auto) 2.2 Lymph # (Auto) 1.0 [place] # (Auto) 0.3 Eos # (Auto) 0.2 Baso # (Auto) 0.0 WBC Differential . Differential Comment Auto diff final Sodium 141 Potassium 4.1 Chloride 105 Carbon Dioxide 27.6 Anion Gap 8 BUN 39 H Creatinine 5.14 H Estimated GFR 12 L Random Glucose 93 Hemoglobin A1c 5.6 Calcium 7.9 L Phosphorus 5.2 H Magnesium 2.0 Total Bilirubin 0.3 AST 25 ALT 16 Alkaline Phosphatase 61 Total Protein 6.3 L Albumin 2.7 L TSH 2.930 Free T4 0.89 - Imaging Abdomen/Pelvis CT 03/11/18 22:35 CONCLUSION: 1. CT findings characteristic of chronic pancreatitis. 2. Fluid-filled, mildly distended small bowel loops throughout the abdomen with stool identified in the colon. No findings of obstruction, however. Findings could represent a mild hypodynamic ileus. 3. I do not see an obvious etiology for the patient's flank pain and hematuria. Specifically, no hydronephrosis or stones. Central Venous Line 03/13/18 00:00 CONCLUSION: Chest X-Ray 03/14/18 00:00 CONCLUSION: 1. Interval placement of right double lumen central venous line. 2. Mild hazy opacity in both lungs which appears mildly increased. This could represent a viral pneumonitis or interstitial lung changes. Renal Biopsy CT 03/14/18 08:00 CONCLUSION: - Procedures PERMACATH 03-13 BY IR RENAL BIOPSY 03-14 Assessment and Plan - Assessment (1) Acute renal failure Code(s): N17.9 - Acute kidney failure, unspecified Status: Acute (2) Hypocalcemia Code(s): E83.51 - Hypocalcemia Status: Acute - Plan 52-year-old male admitted secondary to acute renal failure Acute renal failure, improving Prior biopsy proven MPGN, likely relapsed Nephrology following Vas-Cath placement 7-25 Creatinine improving with hemodialysis. Continue with HD TTS per nephrology. s/p renal biopsy Avoid nephrotoxins Continue on Phoslo Continue to monitor kidney function Hypocalcemia, improving continue on Vitamin D and calcitriol Follow calcium levels Hypertension, not well controlled Continue on amlodipine, Bumex and hydralazine. Increase hydralazine dose to 75 mg p.o. 3 times daily Clonidine as needed Continue to monitor BP and adjust treatment accordingly Cocaine abuse Urine drug screen positive for cocaine Discussed cessation Hepatitis C Thrombocytopenia, mild, stable PT 10.7/INR 1.1 no e/o active bleeding standard precautions Avoid hepatotoxic agents Constipation Give Miralax dose x 1 now Begin scheduled PeriColace Monitor for BM Social barriers Patient is homeless and has no payor source CM assisting with discharge planning DVT prophylaxis Heparin Discussed Condition With: Patient, nursing staff, CM and Dr. Escalera Discharge Planning: Patient is unsafe discharge. Needs ongoing HD treatment. He is homeless and has no payor source. Case management is assisting with ongoing discharge planning. (1) Acute renal failure Qualifiers: Acute renal failure type: unspecified Qualified Code(s): N17.9 - Acute kidney failure, unspecified
[2018-03-17] MEDS ORDERED: Senna/Docusate Sodium 8.6/50 MG Tablet PO ONE (16:45)
[2018-03-17] MEDS ORDERED: Polyethylene Glycol 3350 17 GM Packet PO ONE (16:46)
[2018-03-17] MEDS: Heparin - SQ 10,000 UNITS/ML Vial SQ SCH (21:25)
[2018-03-17] MEDS: Senna/Docusate Sodium 8.6/50 MG Tablet PO SCH (21:28)
[2018-03-18] MEDS: Calcium Acetate 667 MG Capsule PO SCH ×3 (08:50→17:19)
[2018-03-18] MEDS: Calcitriol 0.25 MCG Capsule PO SCH (08:50)
[2018-03-18] MEDS: hydrALAZINE 50 MG Tablet PO SCH (08:51)
[2018-03-18] MEDS: Heparin - SQ 10,000 UNITS/ML Vial SQ SCH ×2 (08:51→20:46)
[2018-03-18] MEDS: amLODIPine 10 MG Tablet PO SCH (08:51)
[2018-03-18] MEDS: Senna/Docusate Sodium 8.6/50 MG Tablet PO SCH ×2 (08:52→20:45)
--- NOTE | 2018-03-18 09:21 | P.PN ---
Subjective Interval history: Follow-up on patient with acute renal failure. Patient seen and examined. Patient denies any new medical complaints. Reports that he slept well. Reports bowel movement yesterday. He denies any headache or vision changes. Denies any fever or chills. He denies any chest pain or shortness of breath. Denies any cough. Denies any nausea, vomiting or abdominal pain. States he was approved for [facility] for Hep C treatment last year however he failed to follow-up as outpatient. Physical Exam Vital signs: Vital Signs 03/17/18 12:00 03/17/18 16:00 03/17/18 20:00 Temperature 97.9 F 98.0 F 98.6 F Pulse Rate 65 71 65 Respiratory Rate 14 15 18 Blood Pressure 161/95 H 134/84 151/94 H Pulse Oximetry 91 L 95 94 L 03/18/18 00:00 03/18/18 04:00 Temperature 98.6 F 97.9 F Pulse Rate 77 76 Respiratory Rate 18 18 Blood Pressure 163/96 H 159/103 H Pulse Oximetry 96 92 L Intake & Output 03/17/18 03/18/18 03/18/18 18:59 06:59 18:59 Weight 78.3 kg Other: # Voids 2 3 Date of Last Bowel Movement 03/17/18 # Bowel Movements 1 Narrative: GENERAL: This is a well-developed, thin male patient, INAD, A&Ox3. Sitting up in bed eating breakfast. SKIN: Warm and dry. No generalized rash. HEENT: Atraumatic. Normocephalic. EOMI. No scleral icterus. No nasal drainage. MMM. Airway patent. NECK: Supple, trachea midline. No lymphadenopathy. RIGHT SIDE PERMACATH IN PLACE FOR HD CARDIOVASCULAR: Regular rate and rhythm without murmurs, gallops, or rubs. RESPIRATORY: Breath sounds equal bilaterally. No accessory muscle use. Clear to auscultation bilaterally. GASTROINTESTINAL: Abdomen soft, non-tender, nondistended. +BS. MUSCULOSKELETAL: No cyanosis or edema noted. No obvious deformities. NEURO: Awake and alert. CN II-XII grossly intact. Able to move all extremities spontaneously. No focal neurological deficits. Normal speech. PSYCHIATRIC: Appropriate mood and affect. Calm and cooperative. Results - Labs CBC & Chem 7: 03/17/18 06:37 03/17/18 06:37 Laboratory Results - last 24 hr 03/12/18 03/17/18 12:20 06:37 Hemoglobin A1c 5.6 Cryoglobulin Cryocrit Cryoglobulin Qualit Positive A - Imaging ITS Impressions Abdomen/Pelvis CT 03/11/18 22:35 CONCLUSION: 1. CT findings characteristic of chronic pancreatitis. 2. Fluid-filled, mildly distended small bowel loops throughout the abdomen with stool identified in the colon. No findings of obstruction, however. Findings could represent a mild hypodynamic ileus. 3. I do not see an obvious etiology for the patient's flank pain and hematuria. Specifically, no hydronephrosis or stones. Central Venous Line 03/13/18 00:00 CONCLUSION: Chest X-Ray 03/14/18 00:00 CONCLUSION: 1. Interval placement of right double lumen central venous line. 2. Mild hazy opacity in both lungs which appears mildly increased. This could represent a viral pneumonitis or interstitial lung changes. Renal Biopsy CT 03/14/18 08:00 CONCLUSION: - Procedures PERMACATH 03-13 BY IR RENAL BIOPSY 03-14 Assessment and Plan - Assessment (1) Acute renal failure Code(s): N17.9 - Acute kidney failure, unspecified Status: Acute (2) Hypocalcemia Code(s): E83.51 - Hypocalcemia Status: Acute (3) HTN (hypertension) Code(s): I10 - Essential (primary) hypertension Status: Acute (4) Secondary hyperparathyroidism of renal origin Code(s): N25.81 - Secondary hyperparathyroidism of renal origin Status: Acute - Plan 52-year-old male admitted secondary to acute renal failure Acute renal failure, improving Prior biopsy proven MPGN secondary to Hep C, likely relapsed Nephrology following Vas-Cath placement 03-13 Creatinine improving with hemodialysis. Continue with HD TTS per nephrology. s/p renal biopsy Avoid nephrotoxins Continue on Phoslo Continue to monitor kidney function/am labs pending Hypocalcemia, improving Vitamin D deficiency continue on Vitamin D and calcitriol Follow calcium levels Hypertension, not well controlled Continue on amlodipine, Bumex and hydralazine. Increase hydralazine dose to 100 mg p.o. 3 times daily. BP will improve with HD treatment tomorrow. Clonidine as needed Continue to monitor BP and adjust treatment accordingly Cocaine abuse Urine drug screen positive for cocaine Discussed cessation Hepatitis C - patient was approved for [facility] treatment last year but did not follow-up as outpatient Thrombocytopenia, mild, stable PT 10.7/INR 1.1 no e/o active bleeding standard precautions Avoid hepatotoxic agents Discussed with patient follow-up with GI as outpatient Constipation, resolved continue on scheduled PeriColace Monitor for BM Social barriers Patient is homeless and has no payor source CM assisting with discharge planning DVT prophylaxis Heparin Discussed Condition With: Patient, nursing staff, Dr. Escalera Discharge Planning: Patient is unsafe discharge. Needs ongoing HD treatment. He is homeless and has no payor source. Case management is assisting with ongoing discharge planning. (1) Acute renal failure Qualifiers: Acute renal failure type: unspecified Qualified Code(s): N17.9 - Acute kidney failure, unspecified
[2018-03-18 09:51] LABS: Calcium 8.3 mg/dL (8.5-10.1); Carbon Dioxide 24.2 meq/L (21.0-32.0); Potassium 4.4 meq/L (3.5-5.1)
--- NOTE | 2018-03-18 12:03 | P.PNNP ---
Subjective Interval history: States he vomited this morning. Eating popsicle during exam. No other concerns. <Sydnee Morrison - Last Filed: 03/18/18 11:59> Physical Exam Vital signs: Vital Signs 03/17/18 12:00 03/17/18 16:00 03/17/18 20:00 Temperature 97.9 F 98.0 F 98.6 F Pulse Rate 65 71 65 Respiratory Rate 14 15 18 Blood Pressure 161/95 H 134/84 151/94 H Pulse Oximetry 91 L 95 94 L 03/18/18 00:00 03/18/18 04:00 03/18/18 08:00 Temperature 98.6 F 97.9 F 97.6 F Pulse Rate 77 76 65 Respiratory Rate 18 18 20 Blood Pressure 163/96 H 159/103 H 172/97 H Pulse Oximetry 96 92 L 95 Intake & Output 03/17/18 03/18/18 03/18/18 18:59 06:59 18:59 Weight 78.3 kg Other: # Voids 2 3 Date of Last Bowel Movement 03/17/18 # Bowel Movements 1 - Constitutional no acute distress, chronically ill appearing, disheveled, cooperative - Routine HEENT Exam Head: Present: normocephalic - Routine Neck Exam Present: supple, full ROM - Routine Respiratory Exam Absent: accessory muscle use - Routine Cardiovascular Exam Present: RRR, S1, S2. Absent: murmur - Routine Abdominal Exam Present: normoactive bowel sounds - Routine Extremities Exam Present: full ROM, vascular access. Absent: edema - Routine Skin Exam Present: dry, warm, wounds, cracked - Routine Neurological Exam Present: alert, oriented X3, CN II-XII intact - Detailed Neurological Exam: Coma Scale Eye Opening: Spontaneous Verbal Response: Oriented Motor Response: Obey commands [place] Coma Scale Total: 15 - Routine Psychiatric Exam Present: normal affect, normal thought process <Sydnee Morrison - Last Filed: 03/18/18 11:59> Vital signs: Vital Signs 03/18/18 12:00 03/18/18 14:12 03/18/18 16:00 Temperature 97.3 F L 97.9 F Pulse Rate 71 68 64 Respiratory Rate 20 20 Blood Pressure 142/91 H 117/73 Pulse Oximetry 96 92 L 03/18/18 20:00 03/19/18 00:00 03/19/18 04:00 Temperature 98.1 F 98.3 F 98.5 F Pulse Rate 68 77 61 Respiratory Rate 18 18 18 Blood Pressure 156/92 H 150/89 H 160/93 H Pulse Oximetry 95 96 95 03/19/18 08:00 Temperature 97.7 F Pulse Rate 65 Respiratory Rate 20 Blood Pressure 154/98 H Pulse Oximetry 94 L Intake & Output 03/18/18 03/19/18 03/19/18 18:59 06:59 18:59 Weight 78.3 kg Other: Date of Last Bowel Movement 03/17/18 <David Smith - Last Filed: 03/19/18 10:32> Assessment and Plan - Assessment (1) Acute renal failure Code(s): N17.9 - Acute kidney failure, unspecified Status: Acute Qualifiers: Acute renal failure type: unspecified Qualified Code(s): N17.9 - Acute kidney failure, unspecified Plan: Prior biopsy proven Hepatitis C related MPGN. In 2015 his Creatinine was 2.3. s/p repeat biopsy last week. Started on HD 03/13 and 03/14. We will continue HD support TTS Remains non oliguric. s/p PermCath placement 03/13 Ordered high protein, low K diet. Supplements added, needs nutritional support. Obtain daily labs. He is homeless and uninsured. Will need these issues addressed for outpatient HD plans. He will need to enter the transitional program at [facility], but will need to have a residence with an address prior to being accepted. Appreciate CM assistance. Have asked the pt to look into fdc or group home house. (2) Secondary hyperparathyroidism of renal origin Code(s): N25.81 - Secondary hyperparathyroidism of renal origin Status: Acute Plan: With hypocalcemia On vitamin D and calcitriol. Start calcium acetate with meals for metabolic bone disorder. (3) HTN (hypertension) Code(s): I10 - Essential (primary) hypertension Status: Acute Plan: On Amlodipine, Bumex, and Hydralazine. PRN clonidine is ordered. Fluid removal as needed with dialysis. <Sydnee Morrison - Last Filed: 03/18/18 11:59> - Assessment (1) Acute renal failure Code(s): N17.9 - Acute kidney failure, unspecified Status: Acute Qualifiers: Acute renal failure type: unspecified Qualified Code(s): N17.9 - Acute kidney failure, unspecified (2) Secondary hyperparathyroidism of renal origin Code(s): N25.81 - Secondary hyperparathyroidism of renal origin Status: Acute (3) HTN (hypertension) Code(s): I10 - Essential (primary) hypertension Status: Acute - Attending Attestation patient was seen and examined. Agree with above assessment and plan. Outpatient followup. <David Smith - Last Filed: 03/19/18 10:32>
[2018-03-19] MEDS: Calcium Acetate 667 MG Capsule PO SCH ×3 (08:51→18:22)
[2018-03-19] MEDS: Senna/Docusate Sodium 8.6/50 MG Tablet PO SCH ×2 (08:51→20:23)
[2018-03-19] MEDS: Heparin - SQ 10,000 UNITS/ML Vial SQ SCH ×2 (08:53→20:23)
[2018-03-19] MEDS: Calcitriol 0.25 MCG Capsule PO SCH (08:54)
[2018-03-19] MEDS: amLODIPine 10 MG Tablet PO SCH (08:54)
--- NOTE | 2018-03-19 11:10 | P.PNNP ---
Subjective Interval history: Seen during dialysis. No new issues. <Sydnee Morrison - Last Filed: 03/19/18 11:06> Physical Exam Vital signs: Vital Signs 03/18/18 12:00 03/18/18 14:12 03/18/18 16:00 Temperature 97.3 F L 97.9 F Pulse Rate 71 68 64 Respiratory Rate 20 20 Blood Pressure 142/91 H 117/73 Pulse Oximetry 96 92 L 03/18/18 20:00 03/19/18 00:00 03/19/18 04:00 Temperature 98.1 F 98.3 F 98.5 F Pulse Rate 68 77 61 Respiratory Rate 18 18 18 Blood Pressure 156/92 H 150/89 H 160/93 H Pulse Oximetry 95 96 95 03/19/18 08:00 Temperature 97.7 F Pulse Rate 65 Respiratory Rate 20 Blood Pressure 154/98 H Pulse Oximetry 94 L Intake & Output 03/18/18 03/19/18 03/19/18 18:59 06:59 18:59 Weight 78.3 kg Other: Date of Last Bowel Movement 03/17/18 - Constitutional no acute distress, average body habitus, disheveled, cooperative - Routine Neck Exam Present: supple, full ROM - Routine Respiratory Exam Present: CTA bilaterally. Absent: accessory muscle use - Routine Cardiovascular Exam Present: RRR, S1, S2 - Routine Abdominal Exam Present: soft, normoactive bowel sounds - Routine Extremities Exam Present: full ROM, pulses intact. Absent: edema - Routine Skin Exam Present: dry, warm, wounds - Routine Neurological Exam Present: alert, oriented X3, CN II-XII intact - Detailed Neurological Exam: Coma Scale Eye Opening: Spontaneous Verbal Response: Oriented Motor Response: Obey commands Thaddeus Coma Scale Total: 15 - Routine Psychiatric Exam Present: normal affect, normal thought process <Sydnee Morrison - Last Filed: 03/19/18 11:06> Vital signs: Vital Signs 03/19/18 12:00 03/19/18 16:00 03/19/18 20:00 Temperature 98 F 98.0 F 97.6 F Pulse Rate 67 65 74 Respiratory Rate 18 17 18 Blood Pressure 160/90 H 146/90 H 135/86 Pulse Oximetry 93 L 95 95 03/20/18 00:00 03/20/18 01:56 03/20/18 04:00 Temperature 98.5 F 98.7 F Pulse Rate 90 76 Respiratory Rate 18 16 18 Blood Pressure 138/80 148/87 H Pulse Oximetry 96 95 03/20/18 07:37 Temperature 98.1 F Pulse Rate 80 Respiratory Rate 12 Blood Pressure 140/90 Pulse Oximetry 96 Intake & Output 03/19/18 03/20/18 03/20/18 18:59 06:59 18:59 Output Total 3000 / 3000 Balance -3000 / -3000 Weight 73.6 kg Output: Hemodialysis Amount 3000 / 3000 Other: # Voids 3 Date of Last Bowel Movement 03/19/18 # Bowel Movements 1 <David Smith - Last Filed: 03/20/18 08:19> Assessment and Plan - Assessment (1) ESRD (end stage renal disease) Code(s): N18.6 - End stage renal disease Status: Acute Plan: Prior biopsy proven Hepatitis C related MPGN. He was able to come off dialysis in 2013. In 2015 his Creatinine was 2.3. s/p repeat biopsy last week. No evidence of reversible disease. Started on HD 03/13 and 03/14. We will continue HD support TTS Seen during dialysis today on a 3K, 350 BFR, goal 3L Remains non oliguric. On Bumex once daily. s/p PermCath placement 03/13. Vascular consulted for AVF placement. On high protein, low K diet. Supplements added, needs nutritional support. Obtain intermittent labs. He is homeless and uninsured. Will need these issues addressed for outpatient HD plans. He will need to enter the transitional program at [facility], but will need to have a residence with an address prior to being accepted. Appreciate CM assistance. Have asked the pt to look into intermediate or [facility] house. (2) Secondary hyperparathyroidism of renal origin Code(s): N25.81 - Secondary hyperparathyroidism of renal origin Status: Acute Plan: With hypocalcemia On vitamin D and calcitriol. On calcium acetate with meals for metabolic bone disorder. (3) HTN (hypertension) Code(s): I10 - Essential (primary) hypertension Status: Acute Plan: On Amlodipine, Bumex, and Hydralazine. PRN clonidine is ordered. Fluid removal as needed with dialysis. <Sydnee Morrison - Last Filed: 03/19/18 11:06> - Assessment (1) ESRD (end stage renal disease) Code(s): N18.6 - End stage renal disease Status: Acute (2) Secondary hyperparathyroidism of renal origin Code(s): N25.81 - Secondary hyperparathyroidism of renal origin Status: Acute (3) HTN (hypertension) Code(s): I10 - Essential (primary) hypertension Status: Acute - Attending Attestation patient was seen and examined. Agree with above assessment and plan. <David Smith - Last Filed: 03/20/18 08:19>
[2018-03-19] MEDS: Heparin 10,000 UNITS/10 ML Vial (for IV use) OTHER PRN (11:41)
--- NOTE | 2018-03-19 14:52 | P.PN ---
Subjective Interval history: Follow-up on patient with acute renal failure. Patient seen and examined. Patient on stretcher going for HD this am. He reports emesis x 2 yesterday after breakfast and lunch. States he was able to tolerate dinner last night without any difficulties. He denies any fever or chills. He denies any chest pain or shortness of breath. He denies any nausea, vomiting or abdominal pain this morning. Physical Exam Vital signs: Vital Signs 03/18/18 16:00 03/18/18 20:00 03/19/18 00:00 Temperature 97.9 F 98.1 F 98.3 F Pulse Rate 64 68 77 Respiratory Rate 20 18 18 Blood Pressure 117/73 156/92 H 150/89 H Pulse Oximetry 92 L 95 96 03/19/18 04:00 03/19/18 08:00 03/19/18 12:00 Temperature 98.5 F 97.7 F 98 F Pulse Rate 61 65 76 Respiratory Rate 18 20 18 Blood Pressure 160/93 H 154/98 H 160/90 H Pulse Oximetry 95 94 L 93 L Intake & Output 03/18/18 03/19/18 03/19/18 18:59 06:59 18:59 Output Total 3000 / 3000 Balance -3000 / -3000 Weight 78.3 kg Output: Hemodialysis Amount 3000 / 3000 Other: Date of Last Bowel Movement 03/17/18 Narrative: GENERAL: This is a well-developed, thin male patient, INAD, A&Ox3. Appears comfortable. SKIN: Warm and dry. No generalized rash. HEENT: Atraumatic. Normocephalic. EOMI. No scleral icterus. No nasal drainage. MMM. Airway patent. NECK: Supple, trachea midline. No lymphadenopathy. RIGHT SIDE PERMACATH IN PLACE FOR HD CARDIOVASCULAR: Regular rate and rhythm without murmurs, gallops, or rubs. RESPIRATORY: Breath sounds equal bilaterally. No accessory muscle use. Clear to auscultation bilaterally. GASTROINTESTINAL: Abdomen soft, non-tender, nondistended. +BS. MUSCULOSKELETAL: No cyanosis or edema noted. No obvious deformities. NEURO: Awake and alert. CN II-XII grossly intact. Able to move all extremities spontaneously. No focal neurological deficits. Normal speech. PSYCHIATRIC: Appropriate mood and affect. Calm and cooperative. Results - Labs CBC & Chem 7: 03/17/18 06:37 03/18/18 08:11 - Imaging ITS Impressions Abdomen/Pelvis CT 03/11/18 22:35 CONCLUSION: 1. CT findings characteristic of chronic pancreatitis. 2. Fluid-filled, mildly distended small bowel loops throughout the abdomen with stool identified in the colon. No findings of obstruction, however. Findings could represent a mild hypodynamic ileus. 3. I do not see an obvious etiology for the patient's flank pain and hematuria. Specifically, no hydronephrosis or stones. Central Venous Line 03/13/18 00:00 CONCLUSION: Chest X-Ray 03/14/18 00:00 CONCLUSION: 1. Interval placement of right double lumen central venous line. 2. Mild hazy opacity in both lungs which appears mildly increased. This could represent a viral pneumonitis or interstitial lung changes. Renal Biopsy CT 03/14/18 08:00 CONCLUSION: - Procedures PERMACATH 03-13 BY IR RENAL BIOPSY 03-14 Assessment and Plan - Assessment (1) Acute renal failure Code(s): N17.9 - Acute kidney failure, unspecified Status: Acute (2) Hypocalcemia Code(s): E83.51 - Hypocalcemia Status: Acute (3) HTN (hypertension) Code(s): I10 - Essential (primary) hypertension Status: Acute (4) Secondary hyperparathyroidism of renal origin Code(s): N25.81 - Secondary hyperparathyroidism of renal origin Status: Acute - Plan 52-year-old male admitted secondary to acute renal failure Acute renal failure, improving Prior biopsy proven MPGN secondary to Hep C, likely relapsed he is nonoliguric Nephrology following Vas-Cath placement 03-13. Vascular consulted by Nephrology for AVF placement. Continue with HD TTS per nephrology. Avoid nephrotoxins Continue on Phoslo Continue to monitor kidney function Hypocalcemia, improving Vitamin D deficiency continue on Vitamin D and calcitriol Follow calcium levels Hypertension, not well controlled Continue on amlodipine, Bumex and hydralazine. Clonidine as needed Continue to monitor BP and adjust treatment accordingly Cocaine abuse Urine drug screen positive for cocaine Discussed cessation Hepatitis C - patient was approved for Harvoni treatment last year but did not follow-up as outpatient Thrombocytopenia, mild, stable PT 10.7/INR 1.1 no e/o active bleeding standard precautions Avoid hepatotoxic agents Discussed with patient follow-up with GI as outpatient Constipation, resolved continue on scheduled PeriColace Monitor for BM Emesis x 2 yesterday, resolved Monitor Social barriers Patient is homeless and has no payor source CM assisting with discharge planning DVT prophylaxis Heparin Discussed Condition With: Patient, nursing staff, CM, Dr. Arvizu Discharge Planning: Patient is unsafe discharge. Needs ongoing HD treatment. He is homeless and has no payor source. Case management is assisting with ongoing discharge planning. (1) Acute renal failure Qualifiers: Acute renal failure type: unspecified Qualified Code(s): N17.9 - Acute kidney failure, unspecified
--- NOTE | 2018-03-19 15:51 | P.CONVS ---
History of Present Illness Service: Cardiovascular Consult date: 03/19/18 Reason for Consult: AVF Eval Primary Care Provider: No Primary Care Physician Family Provider: No Primary Care Physician Chief Complaint: Hematuria History of Present Illness: 52 disheveled homeless male pt with a PMH of Chronic Kidney Disease, Hypertension, Hepatitis C and daily drug abuse (crack cocaine). Pt c/o hematuria with generalized weakness for 2W Pt recently started HD (T/T/S) via tunneled cath right chest Pt is right handed Review of Systems Constitutional: Denies chills, Denies fever(s), Denies weakness Cardiovascular: Denies chest pain, Denies shortness of breath PMFSH - History History Provided By: Patient - Medical History Medical History: Medical History (Last Reviewed 03/19/18 @ 15:30 by Sangita Carmen) Hypertension Renal disease - Surgical History Surgical History: Surgical History (Last Reviewed 03/19/18 @ 15:30 by Sangita Carmen) No history of previous surgery - Tobacco History Second Hand Smoke Exposure: Yes Tobacco Use In Past 30 Days: Yes Smoking Status: Current every day smoker Tobacco Type: Cigarettes, Cigars Packs Per Day: 1 - Alcohol History How Often Do You Have a Drink Containing Alcohol: Never - Substance Use History Substance History: No History of Abuse, Active Abuse - Substance Use Type Crack/Cocaine Status: Active Route Used: Inhalation, Intravenously Reason for Use: Calm Down, Feels Good, Get High - Travel History History of Recent Travel: No Recent Travel in the [place] Within the Last 8 Weeks: No Recent Travel Out of the Country Within the Last 8 Weeks: No - Immunization History Tetanus Immunization: Unsure Hx Influenza Vaccine This Season: No Medications and Allergies Allergies Allergy/AdvReac Type Severity Reaction Status Date / Time No Known Drug Allergies Allergy Unknown . Verified 03/14/18 14:47 *MDRO Multi-Drug Resistant AdvReac Unknown Hives Uncoded 03/11/18 23:13 Organism Home Medications Medication Instructions Recorded Confirmed Type No Known Home Medications 03/11/18 03/11/18 History Active Medications: Active Medications Acetaminophen (Tylenol) 650 mg PO UNSCH PRN PRN Reason: SEE LABEL COMMENTS Amlodipine Besylate (Norvasc) 10 mg PO DAILY [facility] Last Admin: 03/19/18 08:54 Dose: 10 mg Bumetanide (Bumex) 2 mg PO DAILY [facility] Last Admin: 03/19/18 08:54 Dose: 2 mg Calcitriol (Rocaltrol) 0.25 mcg PO DAILY [facility] Last Admin: 03/19/18 08:54 Dose: 0.25 mcg Calcium Acetate (Phoslo) 667 mg PO TID [facility] Last Admin: 03/19/18 12:41 Dose: 667 mg Clonidine HCl (Catapres) 0.1 mg PO Q6H PRN PRN Reason: SEE LABEL COMMENTS Clonidine HCl (Catapres) 0.1 mg PO UNSCH PRN PRN Reason: SEE LABEL COMMENTS Diphenhydramine HCl (Benadryl) 25 mg PO UNSCH PRN PRN Reason: SEE LABEL COMMENTS Gelatin (Gelfoam 12 Mm/7 Mm Topical) 1 foam TOPICAL PRN PRN PRN Reason: help stop bleeding from site Gentamicin Sulfate (Gentamicin Inj) 20 mg OTHER WITH DIALYSIS PRN PRN Reason: Dwell Gentamycin Lock Last Admin: 03/19/18 11:41 Dose: 20 mg Heparin Sodium (Porcine) (Heparin Inj) 8,000 units OTHER WITH DIALYSIS PRN PRN Reason: for machine prime Heparin Sodium (Porcine) (Heparin Inj) 1,000 units OTHER WITH DIALYSIS PRN PRN Reason: Dwell Heparin to Fill Catheter Last Admin: 03/19/18 11:41 Dose: 1,000 units Heparin Sodium (Porcine) (Heparin Inj) 5,000 units SQ Q12HR [facility] Last Admin: 03/19/18 08:53 Dose: 5,000 units Hydralazine HCl (Apresoline) 100 mg PO TID [facility] Last Admin: 03/19/18 12:41 Dose: 100 mg Albumin Human (Flexbumin 25% Inj) 100 mls @ 60 mls/hr IV.SIG WITH DIALYSIS PRN PRN Reason: hypotension / volume replace Sodium Chloride (Ns Inj) 1,000 mls @ 0 mls/hr OTHER .Q0M PRN PRN Reason: for prime and rinse back Last Infusion: 03/17/18 23:06 Dose: 0 mls/hr Sodium Chloride (Ns Inj) 1,000 mls @ 200 mls/hr OTHER .Q5H PRN PRN Reason: for dialyzer flush PRN Sodium Chloride (Ns Inj) 1,000 mls @ 0 mls/hr IV.CONT .Q0M PRN PRN Reason: hypotension / volume replace Mannitol (Mannitol Inj) 12.5 gm IV.PUSH UNSCH PRN PRN Reason: hypotension / volume replace Nitroglycerin (Nitrostat Sl) 0.4 mg SL Q5M PRN PRN Reason: CHEST PAIN Ondansetron HCl (Zofran Odt) 4 mg PO Q6H PRN PRN Reason: NAUSEA OR VOMITING Last Admin: 03/15/18 08:37 Dose: 4 mg Ondansetron HCl (Zofran Odt) 4 mg PO UNSCH PRN PRN Reason: NAUSEA OR VOMITING Ondansetron HCl (Zofran Inj) 4 mg IV.PUSH Q6H PRN PRN Reason: NAUSEA Last Admin: 03/18/18 21:54 Dose: 4 mg Senna/Docusate Sodium (Lisa-Colace) 1 tab PO BID [facility] Last Admin: 03/19/18 08:51 Dose: Not Given Sodium Chloride (Ns Flush) 5 ml IV.FLUSH PRN PRN PRN Reason: flush each lumen during HD Sodium Chloride (Ns Flush) 0 ml IV.FLUSH PRN PRN PRN Reason: SEE DOSE INSTRUCTIONS Vitamin D (Vitamin D3) 1,000 unit PO DAILY [facility] Last Admin: 03/19/18 08:53 Dose: 1,000 unit Physical Exam Vital Signs / I&O: Vital Signs 03/18/18 16:00 03/18/18 20:00 03/19/18 00:00 Temperature 97.9 F 98.1 F 98.3 F Pulse Rate 64 68 77 Respiratory Rate 20 18 18 Blood Pressure 117/73 156/92 H 150/89 H Pulse Oximetry 92 L 95 96 03/19/18 04:00 03/19/18 08:00 03/19/18 12:00 Temperature 98.5 F 97.7 F 98 F Pulse Rate 61 65 76 Respiratory Rate 18 20 18 Blood Pressure 160/93 H 154/98 H 160/90 H Pulse Oximetry 95 94 L 93 L Intake & Output 03/18/18 03/19/18 03/19/18 18:59 06:59 18:59 Output Total 3000 / 3000 Balance -3000 / -3000 Weight 78.3 kg Output: Hemodialysis Amount 3000 / 3000 Other: Date of Last Bowel Movement 03/17/18 Neuro: GCS 15 CN 2-12 intact Speech clear Neck: No JVD distention No carotid bruit Heart: RRR + S1,S2 w/o M/R Lungs: Lungs CTA Non-labored respirations BS equal Symmetrical expansion Vascular: R/L radial pulses present UE warm w/ motor intact Extremities: UE 12/22 LE 12/22 Assessment and Plan - Plan 52/M recently started HD (T/T/S) via right sided chest catheter Pt in need of a permanent access No prior attempts noted Pt is right handed Plan Discussed and reviewed arteriovenous fistula creation process w/ patient Questions answered Planning AVF creation for early next week w/ Dr. Ferrer Vein mapping ordered Sangita Carmen NP [facility] [phone] - Attending Attestation Agree with above. Seen and agreed. Needs HD access. UE vein duplex ongoing. Will plan AVF/AVG accordingly. RIGHT handed. Tentatively on OR schedule for SUNDAY 03/25.
[2018-03-20 07:27] LABS: Baso % (Auto) 0.7 % (0.0-2.0); Eos # (Auto) 0.2 th/mm3 (0.0-0.4); Eos % (Auto) 4.8 % (0.0-4.0); Hematocrit 39.9 % (39.0-51.0); Hemoglobin 13.1 gm/dL (13.0-17.0); Lymph % (Auto) 22.5 % (9.0-44.0); Mean Corpuscular HGB Conc 32.8 % (32.0-36.0); Mean Corpuscular Volume 85.5 fL (80.0-100.0); Mean Platelet Volume 8.5 fL (7.0-11.0); Mono # (Auto) 0.4 th/mm3 (0.0-0.9); Mono % (Auto) 9.3 % (0.0-8.0); Neut # (Auto) 2.7 th/mm3 (1.8-7.7); Neut % (Auto) 62.7 % (16.0-70.0); Platelet Count 115 th/mm3 (150-450); Red Blood Count 4.67 mil/mm3 (4.50-5.90); Red Cell Distribution Width 14.5 % (11.6-17.2); White Blood Count 4.3 th/mm3 (4.0-11.0)
--- NOTE | 2018-03-20 07:45 | P.PN ---
Subjective Interval history: Follow-up on patient with acute renal failure. Patient seen and examined. Patient states he is "waiting for breakfast". He would like something for constipation. He denies any recurrence of nausea or vomiting. Denies any abdominal pain. Denies any chest pain or shortness of breath. Physical Exam Vital signs: Vital Signs 03/19/18 08:00 03/19/18 12:00 03/19/18 16:00 Temperature 97.7 F 98 F 98.0 F Pulse Rate 66 67 65 Respiratory Rate 20 18 17 Blood Pressure 154/98 H 160/90 H 146/90 H Pulse Oximetry 94 L 93 L 95 03/19/18 20:00 03/20/18 00:00 03/20/18 01:56 Temperature 97.6 F 98.5 F Pulse Rate 74 90 Respiratory Rate 18 18 16 Blood Pressure 135/86 138/80 Pulse Oximetry 95 96 03/20/18 04:00 03/20/18 07:37 Temperature 98.7 F 98.1 F Pulse Rate 76 80 Respiratory Rate 18 12 Blood Pressure 148/87 H 140/90 Pulse Oximetry 95 96 Intake & Output 03/19/18 03/20/18 03/20/18 18:59 06:59 18:59 Output Total 3000 / 3000 Balance -3000 / -3000 Weight 73.6 kg Output: Hemodialysis Amount 3000 / 3000 Other: # Voids 3 Date of Last Bowel Movement 03/19/18 # Bowel Movements 1 Narrative: GENERAL: This is a well-developed, thin male patient, INAD, A&Ox3. Appears comfortable. Sitting up in bed watching tv. SKIN: Warm and dry. No generalized rash. HEENT: Atraumatic. Normocephalic. EOMI. No scleral icterus. No nasal drainage. MMM. Airway patent. NECK: Supple, trachea midline. No lymphadenopathy. RIGHT SIDE PERMACATH IN PLACE FOR HD CARDIOVASCULAR: Regular rate and rhythm without murmurs, gallops, or rubs. RESPIRATORY: Breath sounds equal bilaterally. No accessory muscle use. Clear to auscultation bilaterally. GASTROINTESTINAL: Abdomen soft, non-tender, nondistended. +BS. MUSCULOSKELETAL: No cyanosis or edema noted. No obvious deformities. NEURO: Awake and alert. CN II-XII grossly intact. Able to move all extremities spontaneously. No focal neurological deficits. Normal speech. PSYCHIATRIC: Appropriate mood and affect. Calm and cooperative. Results - Labs CBC & Chem 7: 03/20/18 06:46 03/20/18 06:46 Laboratory Results - last 24 hr 03/20/18 06:46 WBC 4.3 RBC 4.67 Hgb 13.1 Hct 39.9 MCV 85.5 MCH 28.0 MCHC 32.8 RDW 14.5 Plt Count 115 L MPV 8.5 Neut % (Auto) 62.7 Lymph % (Auto) 22.5 Rutherford % (Auto) 9.3 H Eos % (Auto) 4.8 H Baso % (Auto) 0.7 Neut # (Auto) 2.7 Lymph # (Auto) 1.0 Rutherford # (Auto) 0.4 Eos # (Auto) 0.2 Baso # (Auto) 0.0 WBC Differential . Differential Comment Auto diff final - Imaging ITS Impressions Abdomen/Pelvis CT 03/11/18 22:35 CONCLUSION: 1. CT findings characteristic of chronic pancreatitis. 2. Fluid-filled, mildly distended small bowel loops throughout the abdomen with stool identified in the colon. No findings of obstruction, however. Findings could represent a mild hypodynamic ileus. 3. I do not see an obvious etiology for the patient's flank pain and hematuria. Specifically, no hydronephrosis or stones. Central Venous Line 03/13/18 00:00 CONCLUSION: Chest X-Ray 03/14/18 00:00 CONCLUSION: 1. Interval placement of right double lumen central venous line. 2. Mild hazy opacity in both lungs which appears mildly increased. This could represent a viral pneumonitis or interstitial lung changes. Renal Biopsy CT 03/14/18 08:00 CONCLUSION: - Procedures PERMACATH 03-13 BY IR RENAL BIOPSY 03-14 Assessment and Plan - Assessment (1) Acute renal failure Code(s): N17.9 - Acute kidney failure, unspecified Status: Acute (2) Hypocalcemia Code(s): E83.51 - Hypocalcemia Status: Acute (3) HTN (hypertension) Code(s): I10 - Essential (primary) hypertension Status: Acute (4) Secondary hyperparathyroidism of renal origin Code(s): N25.81 - Secondary hyperparathyroidism of renal origin Status: Acute - Plan 52-year-old male admitted secondary to acute renal failure Acute renal failure, improving Prior biopsy proven MPGN secondary to Hep C, likely relapsed he is nonoliguric Nephrology following. s/p HD yesterday with 3L removed. Vas-Cath placement 03-13. Vascular consulted by Nephrology for AVF placement. Planning for AVF early next week with Dr. Ferrer. Continue with HD TTS per nephrology. Avoid nephrotoxins Continue on Phoslo Continue to monitor kidney function Hypocalcemia, resolved Vitamin D deficiency continue on Vitamin D and calcitriol Follow calcium levels Hypertension, better controlled Continue on amlodipine, Bumex and hydralazine. Clonidine as needed Continue to monitor BP and adjust treatment accordingly Cocaine abuse Urine drug screen positive for cocaine Discussed cessation Hepatitis C - patient was approved for Harvoni treatment last year but did not follow-up as outpatient Thrombocytopenia, mild, stable PT 10.7/INR 1.1 no e/o active bleeding standard precautions Avoid hepatotoxic agents Discussed with patient follow-up with GI as outpatient Constipation dose of Miralax x 1 now continue on scheduled PeriColace Monitor for BM Emesis x 2, resolved Monitor Social barriers Patient is homeless and has no payor source CM assisting with discharge planning DVT prophylaxis Heparin Discussed Condition With: patient, nursing staff, Dr. Arvizu Discharge Planning: Patient is unsafe discharge. Needs ongoing HD treatment. He is homeless and has no payor source. Case management is assisting with ongoing discharge planning. (1) Acute renal failure Qualifiers: Acute renal failure type: unspecified Qualified Code(s): N17.9 - Acute kidney failure, unspecified
[2018-03-20 07:51] LABS: Anion Gap 9 meq/L (5-15); Aspartate Aminotransferase 37 U/L (15-37); Blood Urea Nitrogen 48 mg/dL (7-18); Calcium 8.5 mg/dL (8.5-10.1); Carbon Dioxide 28.4 meq/L (21.0-32.0); Chloride 103 meq/L (98-107); Glomerular Filtration Rate 11 mL/min (>89); Glucose,Random 113 mg/dL (74-106); Potassium 4.1 meq/L (3.5-5.1); Sodium 140 meq/L (136-145)
[2018-03-20 07:55] LABS: Alanine Aminotransferase 30 U/L (12-78); Alkaline Phosphatase 72 U/L (45-117); Phosphorus 4.8 mg/dL (2.5-4.9); Total Protein 6.9 g/dL (6.4-8.2)
--- NOTE | 2018-03-20 09:15 | P.PNNP ---
Subjective Interval history: Offers no new complaints. Had dialysis yesterday. 3 liters removed in UF. Physical Exam Vital signs: Vital Signs 03/19/18 12:00 03/19/18 16:00 03/19/18 20:00 Temperature 98 F 98.0 F 97.6 F Pulse Rate 67 65 74 Respiratory Rate 18 17 18 Blood Pressure 160/90 H 146/90 H 135/86 Pulse Oximetry 93 L 95 95 03/20/18 00:00 03/20/18 01:56 03/20/18 04:00 Temperature 98.5 F 98.7 F Pulse Rate 90 76 Respiratory Rate 18 16 18 Blood Pressure 138/80 148/87 H Pulse Oximetry 96 95 03/20/18 07:37 Temperature 98.1 F Pulse Rate 80 Respiratory Rate 12 Blood Pressure 140/90 Pulse Oximetry 96 Intake & Output 03/19/18 03/20/18 03/20/18 18:59 06:59 18:59 Output Total 3000 / 3000 Balance -3000 / -3000 Weight 73.6 kg Output: Hemodialysis Amount 3000 / 3000 Other: # Voids 3 Date of Last Bowel Movement 03/19/18 # Bowel Movements 1 - Constitutional no acute distress - Routine HEENT Exam Head: Present: normocephalic, atraumatic Eye: Present: EOMI, PERRL - Routine Neck Exam Present: supple, full ROM. Absent: JVD - Routine Respiratory Exam Present: CTA bilaterally - Routine Cardiovascular Exam Present: RRR, S1, S2 - Routine Abdominal Exam Present: soft, normoactive bowel sounds - Routine Extremities Exam Absent: cyanosis, edema - Routine Neurological Exam Present: alert, oriented X3 Assessment and Plan - Assessment (1) ESRD (end stage renal disease) Code(s): N18.6 - End stage renal disease Status: Acute Plan: Prior biopsy proven Hepatitis C related MPGN. He was able to come off dialysis in 2013. In 2015 his Creatinine was 2.3. s/p repeat biopsy last week. Started on HD 03/13 and 03/14. We will continue HD support TTS Remains non oliguric. On Bumex once daily. s/p PermCath placement 03/13. Vascular consulted for AVF placement. On high protein, low K diet. Supplements added, needs nutritional support. Obtain labs intermittently. He is homeless and uninsured. Will need these issues addressed for outpatient HD plans. He will need to enter the transitional program at [facility], but will need to have a residence with an address prior to being accepted. Appreciate CM assistance. Have asked the pt to look into longterm or alf house. (2) Secondary hyperparathyroidism of renal origin Code(s): N25.81 - Secondary hyperparathyroidism of renal origin Status: Acute Plan: With hypocalcemia On vitamin D and calcitriol. On calcium acetate with meals for metabolic bone disorder. (3) HTN (hypertension) Code(s): I10 - Essential (primary) hypertension Status: Acute Plan: On Amlodipine, Bumex, and Hydralazine. PRN clonidine is ordered. Fluid removal as needed with dialysis.
[2018-03-20] MEDS: amLODIPine 10 MG Tablet PO SCH (10:26)
[2018-03-20] MEDS: Calcitriol 0.25 MCG Capsule PO SCH (10:26)
[2018-03-20] MEDS: Calcium Acetate 667 MG Capsule PO SCH ×3 (10:26→18:18)
[2018-03-20] MEDS: Senna/Docusate Sodium 8.6/50 MG Tablet PO SCH ×2 (10:27→20:36)
[2018-03-20] MEDS: Heparin - SQ 10,000 UNITS/ML Vial SQ SCH ×2 (10:27→20:36)
[2018-03-20] MEDS ORDERED: Polyethylene Glycol 3350 17 GM Packet PO ONE (11:00)
--- NOTE | 2018-03-20 12:01 | US ---
EXAM DATE: 03/20/2018 10:26 AM EDT AGE/SEX: 52 years / Male INDICATIONS: AV fistula placement. CLINICAL DATA: This is the patient's initial encounter. Patient reports that signs and symptoms have been present for 1 day and indicates a pain score of 0/10. MEDICAL/SURGICAL HISTORY: Hypertension. Renal disease. None. COMPARISON: No prior exams available for comparison. FINDINGS: Right Upper Extremity: The vessels are compressible and augmentation response is documented. No fill ing defects are seen. The flow is phasic with respiration. Left Upper Extremity: The vessels are compressible and augmentation response is documented. No filli ng defects are seen. The flow is phasic with respiration. Other: None. CONCLUSION: 1. The study is negative for bilateral upper extremity deep venous thrombosis. Electronically signed by: Kamar Merida MD 03/20/2018 10:28 AM EDT
--- NOTE | 2018-03-20 12:01 | US ---
EXAM DATE: 03/20/2018 10:36 AM EDT AGE/SEX: 52 years / Male INDICATIONS: AV fistula placement. CLINICAL DATA: This is the patient's initial encounter. Patient reports that signs and symptoms have been present for 1 day and indicates a pain score of 0/10. MEDICAL/SURGICAL HISTORY: Hypertension. Renal disease. None. COMPARISON: [facility] – [place], [place] VENOUS DOPPLER ARM BI, 03/20/2018. . MEASUREMENTS: RIGHT: CEPHALIC: Origin:__2 mm Mid-Arm:__1 mm Elbow:__1 mm Forearm:__1 mm Wrist:__Non-visualized BASILIC: Origin:__Non-visualized Mid-Arm:__3 mm Elbow:__4 mm ARTERIES: Brachial:__6 mm Ulnar:__3 mm Radial:__3 mm VEINS: Radial:__2 mm Ulnar:__1 mm LEFT: CEPHALIC: Origin:__1 mm Mid-Arm:__1 mm Elbow:__Non-visualized Forearm:__1 mm Wrist:__Non-visualized BASILIC: Origin:__2 mm Mid-Arm:__1 mm Elbow:__2 mm ARTERIES: Brachial:__5 mm Ulnar:__2 mm Radial:__3 mm VEINS: Radial:__1 mm Ulnar:__2 mm FINDINGS: The venous system of the upper extremities are patent by color Doppler imaging. Measurements of the arm veins (in mm) are listed above. CONCLUSION: 1. Venous mapping as above. Electronically signed by: Kamar Merida MD 03/20/2018 10:52 AM EDT
--- NOTE | 2018-03-21 07:48 | P.PN ---
Subjective Interval history: Follow-up on patient with acute renal failure. Patient seen and examined. Patient denies any acute medical complaints. States he feels well. He denies any chest pain or shortness of breath. Denies any fever chills. Denies any nausea, vomiting or abdominal pain. He denies any dysuria, diarrhea or constipation. He is scheduled for HD today. Physical Exam Vital signs: Vital Signs 03/20/18 08:00 03/20/18 12:00 03/20/18 16:00 Temperature 98.1 F 98.3 F Pulse Rate 67 83 79 Respiratory Rate 18 18 Blood Pressure 132/70 134/72 Pulse Oximetry 94 L 96 03/20/18 20:00 03/21/18 00:00 03/21/18 04:00 Temperature 97.9 F 98.3 F Pulse Rate 76 72 78 Respiratory Rate 16 18 Blood Pressure 137/78 130/88 Pulse Oximetry 95 96 03/21/18 04:09 Temperature 98.3 F Pulse Rate 72 Respiratory Rate 18 Blood Pressure 154/86 H Pulse Oximetry 95 Intake & Output 03/20/18 03/21/18 03/21/18 18:59 06:59 18:59 Other: # Voids 3 Date of Last Bowel Movement 03/19/18 03/20/18 Narrative: GENERAL: This is a well-developed, thin male patient, INAD, A&Ox3. Appears comfortable. Sitting up in bed. Awake and alert. SKIN: Warm and dry. No generalized rash. HEENT: Atraumatic. Normocephalic. EOMI. No scleral icterus. No nasal drainage. MMM. Airway patent. NECK: Supple, trachea midline. No lymphadenopathy. RIGHT SIDE PERMACATH IN PLACE FOR HD CARDIOVASCULAR: Regular rate and rhythm without murmurs, gallops, or rubs. RESPIRATORY: Breath sounds equal bilaterally. No accessory muscle use. Clear to auscultation bilaterally. GASTROINTESTINAL: Abdomen soft, non-tender, nondistended. +BS. MUSCULOSKELETAL: No cyanosis or edema noted. No obvious deformities. NEURO: Awake and alert. CN II-XII grossly intact. Able to move all extremities spontaneously. No focal neurological deficits. Normal speech. PSYCHIATRIC: Appropriate mood and affect. Calm and cooperative. Results - Labs CBC & Chem 7: 03/20/18 06:46 03/20/18 06:46 Laboratory Results - last 24 hr 03/20/18 06:46 Sodium 140 Potassium 4.1 Chloride 103 Carbon Dioxide 28.4 Anion Gap 9 BUN 48 H Creatinine 5.39 H Estimated GFR 11 L Random Glucose 113 H Calcium 8.5 Phosphorus 4.8 Total Bilirubin 0.3 AST 37 ALT 30 Alkaline Phosphatase 72 Total Protein 6.9 D Albumin 3.0 L - Imaging Impressions Upper Extremity Ultrasound 03/20/18 00:00 CONCLUSION: 1. Venous mapping as above. Venous Doppler Study 03/20/18 00:00 CONCLUSION: 1. The study is negative for bilateral upper extremity deep venous thrombosis. - Procedures PERMACATH 03-13 BY IR RENAL BIOPSY 03-14 Assessment and Plan - Assessment (1) Acute renal failure Code(s): N17.9 - Acute kidney failure, unspecified Status: Acute (2) Hypocalcemia Code(s): E83.51 - Hypocalcemia Status: Acute (3) HTN (hypertension) Code(s): I10 - Essential (primary) hypertension Status: Acute (4) Secondary hyperparathyroidism of renal origin Code(s): N25.81 - Secondary hyperparathyroidism of renal origin Status: Acute - Plan 52-year-old male admitted secondary to acute renal failure Acute renal failure, improving Prior biopsy proven MPGN secondary to Hep C, likely relapsed he is nonoliguric Nephrology following. Scheduled for HD today. Vas-Cath placement 03-13. Vascular consulted by Nephrology for AVF placement. Planning for AVF early next week with Dr. Ferrer. Continue with HD TTS per nephrology. Avoid nephrotoxins Continue on Phoslo Continue to monitor kidney function Hypocalcemia, resolved Vitamin D deficiency continue on Vitamin D and calcitriol Follow calcium levels Hypertension, better controlled Continue on amlodipine, Bumex and hydralazine. Clonidine as needed Continue to monitor BP and adjust treatment accordingly Cocaine abuse Urine drug screen positive for cocaine Discussed cessation Hepatitis C - patient was approved for Harvoni treatment last year but did not follow-up as outpatient Thrombocytopenia, mild, stable PT 10.7/INR 1.1 no e/o active bleeding standard precautions Avoid hepatotoxic agents Discussed with patient follow-up with GI as outpatient Constipation, resolved continue on scheduled PeriColace Monitor for BM Social barriers Patient is homeless and has no payor source CM assisting with discharge planning DVT prophylaxis Heparin Discussed Condition With: patient, nursing staff, Dr. Arvizu, CM Discharge Planning: Patient is unsafe discharge. Needs ongoing HD treatment. He is homeless and has no payor source. Case management is assisting with ongoing discharge planning. (1) Acute renal failure Qualifiers: Acute renal failure type: unspecified Qualified Code(s): N17.9 - Acute kidney failure, unspecified
--- NOTE | 2018-03-21 08:16 | P.PNNP ---
Subjective Interval history: To have dialysis today. No new issues. Physical Exam Vital signs: Vital Signs 03/20/18 12:00 03/20/18 16:00 03/20/18 20:00 Temperature 98.1 F 98.3 F 97.9 F Pulse Rate 83 79 76 Respiratory Rate 18 18 16 Blood Pressure 132/70 134/72 137/78 Pulse Oximetry 94 L 96 95 03/21/18 00:00 03/21/18 04:00 03/21/18 04:09 Temperature 98.3 F 98.3 F Pulse Rate 72 78 72 Respiratory Rate 18 18 Blood Pressure 130/88 154/86 H Pulse Oximetry 96 95 Intake & Output 03/20/18 03/21/18 03/21/18 18:59 06:59 18:59 Other: # Voids 3 Date of Last Bowel Movement 03/19/18 03/20/18 - Constitutional no acute distress - Routine HEENT Exam Head: Present: normocephalic, atraumatic Eye: Present: EOMI, PERRL ENT: Present: mucous membranes moist - Routine Neck Exam Present: supple, full ROM. Absent: JVD - Routine Respiratory Exam Present: CTA bilaterally - Routine Cardiovascular Exam Present: RRR, S1, S2 - Routine Abdominal Exam Present: soft, normoactive bowel sounds - Routine Skin Exam Present: intact - Routine Neurological Exam Present: alert, oriented X3 Assessment and Plan - Assessment (1) ESRD (end stage renal disease) Code(s): N18.6 - End stage renal disease Status: Acute Plan: Prior biopsy proven Hepatitis C related MPGN. He was able to come off dialysis in 2013. In 2015 his Creatinine was 2.3. s/p renal biopsy. Started on HD 03/13. Continue dialysis support. Likely has reached ESRD. Remains non oliguric. On Bumex once daily. s/p PermCath placement 03/13. Vascular consulted for AVF placement. On high protein, low K diet. Supplements added, needs nutritional support. Obtain labs intermittently. He is homeless and uninsured. Will need these issues addressed for outpatient HD plans. He will need to enter the transitional program at [facility] [place], but will need to have a residence with an address prior to being accepted. Appreciate CM assistance. Have asked the pt to look into longterm or alf house. (2) Secondary hyperparathyroidism of renal origin Code(s): N25.81 - Secondary hyperparathyroidism of renal origin Status: Acute Plan: With hypocalcemia On vitamin D and calcitriol. On calcium acetate with meals for metabolic bone disorder. (3) HTN (hypertension) Code(s): I10 - Essential (primary) hypertension Status: Acute Plan: On Amlodipine, Bumex, and Hydralazine. PRN clonidine is ordered. Fluid removal as needed with dialysis.
[2018-03-21] MEDS: Calcitriol 0.25 MCG Capsule PO SCH (08:23)
[2018-03-21] MEDS: Calcium Acetate 667 MG Capsule PO SCH ×3 (08:24→18:01)
[2018-03-21] MEDS: Senna/Docusate Sodium 8.6/50 MG Tablet PO SCH ×2 (08:24→21:39)
[2018-03-21] MEDS: Heparin - SQ 10,000 UNITS/ML Vial SQ SCH ×2 (08:25→21:39)
[2018-03-21] MEDS: amLODIPine 10 MG Tablet PO SCH (08:28)
--- NOTE | 2018-03-22 08:13 | P.PN ---
Subjective Interval history: Follow-up on patient with acute renal failure. Patient seen and examined. Patient states he did not fall asleep until 500am this morning. He is requesting Melatonin to help him sleep. He denies any new medical complaints. He denies any fever chills. Denies any chest pain or shortness of breath. He denies any nausea, vomiting or abdominal pain. He denies any dysuria or constipation. +bowel movement. Physical Exam Vital signs: Vital Signs 03/21/18 08:14 03/21/18 12:44 03/21/18 17:00 Temperature 97.9 F 98.4 F 97.6 F Pulse Rate 66 78 81 Respiratory Rate 18 16 16 Blood Pressure 141/89 H 143/95 H 126/78 Pulse Oximetry 94 L 98 96 03/21/18 20:00 03/22/18 00:00 03/22/18 04:00 Temperature 98.2 F 98.0 F Pulse Rate 81 71 80 Respiratory Rate 17 18 Blood Pressure 132/68 145/91 H Pulse Oximetry 93 L 96 Intake & Output 03/21/18 03/22/18 03/22/18 18:59 06:59 18:59 Output Total 3000 / 3000 Balance -3000 / -3000 Weight 78.2 kg Output: Hemodialysis Amount 3000 / 3000 Other: Date of Last Bowel Movement 03/20/18 03/21/18 Narrative: GENERAL: This is a well-developed, thin male patient, INAD, A&Ox3. Appears comfortable. Sitting up in bed. Awake and alert watching tv. SKIN: Warm and dry. No generalized rash. HEENT: Atraumatic. Normocephalic. EOMI. No scleral icterus. No nasal drainage. MMM. Airway patent. NECK: Supple, trachea midline. No lymphadenopathy. RIGHT SIDE PERMACATH IN PLACE FOR HD CARDIOVASCULAR: Regular rate and rhythm without murmurs, gallops, or rubs. RESPIRATORY: No accessory muscle use. Breath sounds equal bilaterally. Clear to auscultation bilaterally. GASTROINTESTINAL: Abdomen soft, non-tender, nondistended. +BS. MUSCULOSKELETAL: No cyanosis or edema noted. No obvious deformities. NEURO: Awake and alert. CN II-XII grossly intact. Able to move all extremities spontaneously. No focal neurological deficits. Normal speech. PSYCHIATRIC: Appropriate mood and affect. Calm and cooperative. Results - Labs CBC & Chem 7: 03/20/18 06:46 03/22/18 06:49 Laboratory Results - last 24 hr 03/21/18 11:35 POC Glucose 90 - Imaging Abdomen/Pelvis CT 03/11/18 22:35 CONCLUSION: 1. CT findings characteristic of chronic pancreatitis. 2. Fluid-filled, mildly distended small bowel loops throughout the abdomen with stool identified in the colon. No findings of obstruction, however. Findings could represent a mild hypodynamic ileus. 3. I do not see an obvious etiology for the patient's flank pain and hematuria. Specifically, no hydronephrosis or stones. Central Venous Line 03/13/18 00:00 CONCLUSION: Chest X-Ray 03/14/18 00:00 CONCLUSION: 1. Interval placement of right double lumen central venous line. 2. Mild hazy opacity in both lungs which appears mildly increased. This could represent a viral pneumonitis or interstitial lung changes. Renal Biopsy CT 03/14/18 08:00 CONCLUSION: Upper Extremity Ultrasound 03/20/18 00:00 CONCLUSION: 1. Venous mapping as above. Venous Doppler Study 03/20/18 00:00 CONCLUSION: 1. The study is negative for bilateral upper extremity deep venous thrombosis. - Procedures PERMACATH 03-13 BY IR RENAL BIOPSY 03-14 Assessment and Plan - Assessment (1) Acute renal failure Code(s): N17.9 - Acute kidney failure, unspecified Status: Acute (2) Hypocalcemia Code(s): E83.51 - Hypocalcemia Status: Acute (3) HTN (hypertension) Code(s): I10 - Essential (primary) hypertension Status: Acute (4) Secondary hyperparathyroidism of renal origin Code(s): N25.81 - Secondary hyperparathyroidism of renal origin Status: Acute - Plan 52-year-old male admitted secondary to acute renal failure Acute renal failure, improving Prior biopsy proven MPGN secondary to Hep C, likely relapsed he is nonoliguric Nephrology following. Plan for HD tomorrow. Vas-Cath placement 03-13. Vascular consulted by Nephrology for AVF placement. Planning for AVF Sunday with Dr. Ferrer. Continue with HD TTS per nephrology. Avoid nephrotoxins Continue on Phoslo Continue to monitor kidney function Hypocalcemia, resolved Vitamin D deficiency continue on Vitamin D and calcitriol Follow calcium levels Hypertension, better controlled Continue on amlodipine, Bumex and hydralazine. Clonidine as needed Continue to monitor BP and adjust treatment accordingly Cocaine abuse Urine drug screen positive for cocaine Discussed cessation Hepatitis C - patient was approved for Harvoni treatment last year but did not follow-up as outpatient Thrombocytopenia, mild, stable PT 10.7/INR 1.1 no e/o active bleeding standard precautions Avoid hepatotoxic agents Discussed with patient follow-up with GI as outpatient Constipation, resolved continue on scheduled PeriColace Monitor for BM Insomnia trial of Melatonin Social barriers Patient is homeless and has no payor source CM assisting with discharge planning DVT prophylaxis Heparin Code Status: Full Discussed Condition With: patient, nursing staff, CM, Dr. Arvizu Discharge Planning: Patient is unsafe discharge. Needs ongoing HD treatment. He is homeless and has no payor source. Case management is assisting with ongoing discharge planning. (1) Acute renal failure Qualifiers: Acute renal failure type: unspecified Qualified Code(s): N17.9 - Acute kidney failure, unspecified
[2018-03-22 08:31] LABS: Albumin 3.2 g/dL (3.4-5.0); Calcium 8.9 mg/dL (8.5-10.1); Carbon Dioxide 26.6 meq/L (21.0-32.0); Phosphorus 5.9 mg/dL (2.5-4.9)
--- NOTE | 2018-03-22 10:10 | P.PNNP ---
Subjective Interval history: Doing well, no concerns. Plan for AVF creation Sunday with Dr. Ferrer. <Sydnee Morrison - Last Filed: 03/22/18 10:07> Physical Exam Vital signs: Vital Signs 03/21/18 12:44 03/21/18 17:00 03/21/18 20:00 Temperature 98.4 F 97.6 F 98.2 F Pulse Rate 78 81 81 Respiratory Rate 16 16 17 Blood Pressure 143/95 H 126/78 132/68 Pulse Oximetry 98 96 93 L 03/22/18 00:00 03/22/18 04:00 03/22/18 09:08 Temperature 98.0 F 97.5 F L Pulse Rate 71 80 70 Respiratory Rate 18 16 Blood Pressure 145/91 H 142/82 H Pulse Oximetry 96 94 L Intake & Output 03/21/18 03/22/18 03/22/18 18:59 06:59 18:59 Output Total 3000 / 3000 Balance -3000 / -3000 Weight 78.2 kg Output: Hemodialysis Amount 3000 / 3000 Other: Date of Last Bowel Movement 03/20/18 03/21/18 - Constitutional no acute distress, disheveled, cooperative - Routine HEENT Exam Head: Present: normocephalic - Routine Neck Exam Present: supple, full ROM - Routine Respiratory Exam Present: CTA bilaterally. Absent: accessory muscle use - Routine Cardiovascular Exam Present: RRR, S1, S2 - Routine Abdominal Exam Present: soft, normoactive bowel sounds - Routine Extremities Exam Present: full ROM, vascular access. Absent: edema - Routine Skin Exam Present: intact, warm - Routine Neurological Exam Present: alert, oriented X3, CN II-XII intact - Detailed Neurological Exam: Coma Scale Eye Opening: Spontaneous Verbal Response: Oriented Motor Response: Obey commands Thaddeus Coma Scale Total: 15 - Routine Psychiatric Exam Present: normal affect, normal thought process <Sydnee Morrison - Last Filed: 03/22/18 10:07> Vital signs: Vital Signs 03/21/18 17:00 03/21/18 20:00 03/22/18 00:00 Temperature 97.6 F 98.2 F 98.0 F Pulse Rate 81 81 71 Respiratory Rate 16 17 18 Blood Pressure 126/78 132/68 145/91 H Pulse Oximetry 96 93 L 96 03/22/18 04:00 03/22/18 09:08 03/22/18 13:23 Temperature 97.5 F L 98.2 F Pulse Rate 80 70 77 Respiratory Rate 16 16 Blood Pressure 142/82 H 123/73 Pulse Oximetry 94 L 96 Intake & Output 03/21/18 03/22/18 03/22/18 18:59 06:59 18:59 Output Total 3000 / 3000 Balance -3000 / -3000 Weight 78.2 kg Output: Hemodialysis Amount 3000 / 3000 Other: Date of Last Bowel Movement 03/20/18 03/21/18 <David Smith - Last Filed: 03/22/18 14:47> Assessment and Plan - Assessment (1) ESRD (end stage renal disease) Code(s): N18.6 - End stage renal disease Status: Acute Plan: Prior biopsy proven Hepatitis C related MPGN. He was able to come off dialysis in 2013. In 2015 his Creatinine was 2.3. s/p renal biopsy. Started on HD 03/13. Continue dialysis support TTS. Likely has reached ESRD. Remains non oliguric, continue Bumex once daily. s/p PermCath placement 03/13. Vascular planning for AVF placement Sunday, 03/25. Will make NPO Sunday at [place]. On high protein, low K diet. On supplements for nutritional support. Obtain labs intermittently. He is homeless and uninsured. Will need these issues addressed for outpatient HD plans. He will need to enter the transitional program at [facility], but will need to have a residence with an address prior to being accepted. Appreciate CM assistance. Have asked the pt to look into assisted or penitentiary house. He is also a [place] , CM was asked to look into possible benefits. (2) Secondary hyperparathyroidism of renal origin Code(s): N25.81 - Secondary hyperparathyroidism of renal origin Status: Acute Plan: With hypocalcemia On vitamin D and calcitriol. On calcium acetate with meals for metabolic bone disorder. (3) HTN (hypertension) Code(s): I10 - Essential (primary) hypertension Status: Acute Plan: On Amlodipine, Bumex, and Hydralazine. PRN clonidine is ordered. Fluid removal as needed with dialysis. <Sydnee Morrison - Last Filed: 03/22/18 10:07> - Assessment (1) ESRD (end stage renal disease) Code(s): N18.6 - End stage renal disease Status: Acute (2) Secondary hyperparathyroidism of renal origin Code(s): N25.81 - Secondary hyperparathyroidism of renal origin Status: Acute (3) HTN (hypertension) Code(s): I10 - Essential (primary) hypertension Status: Acute - Attending Attestation patient was seen and examined. Agree with above assessment and plan. <David Smith - Last Filed: 03/22/18 14:47>
[2018-03-22] MEDS: Calcium Acetate 667 MG Capsule PO SCH ×3 (10:47→18:20)
[2018-03-22] MEDS: Heparin - SQ 10,000 UNITS/ML Vial SQ SCH ×2 (10:48→20:53)
[2018-03-22] MEDS: Senna/Docusate Sodium 8.6/50 MG Tablet PO SCH ×2 (10:48→20:53)
[2018-03-22] MEDS: Calcitriol 0.25 MCG Capsule PO SCH (10:48)
[2018-03-22] MEDS: amLODIPine 10 MG Tablet PO SCH (10:48)
[2018-03-23] MEDS: Heparin - SQ 10,000 UNITS/ML Vial SQ SCH ×2 (08:25→22:11)
[2018-03-23] MEDS: Calcitriol 0.25 MCG Capsule PO SCH (08:26)
[2018-03-23] MEDS: Senna/Docusate Sodium 8.6/50 MG Tablet PO SCH ×2 (08:26→22:12)
[2018-03-23] MEDS: Calcium Acetate 667 MG Capsule PO SCH ×3 (08:26→18:05)
--- NOTE | 2018-03-23 08:30 | P.PN ---
Subjective Interval history: Follow-up on patient with acute renal failure. Patient seen and examined. Patient appears comfortable having just returned from HD. Discussed with nursing staff, no acute issues noted. Physical Exam Vital signs: Vital Signs 03/22/18 09:08 03/22/18 13:23 03/22/18 20:00 Temperature 97.5 F L 98.2 F 97.6 F Pulse Rate 70 77 68 Respiratory Rate 16 16 20 Blood Pressure 142/82 H 123/73 130/82 Pulse Oximetry 94 L 96 97 03/23/18 00:00 03/23/18 04:00 Temperature 98.6 F 98.2 F Pulse Rate 80 71 Respiratory Rate 19 19 Blood Pressure 122/72 Pulse Oximetry 95 96 Intake & Output 03/22/18 03/23/18 03/23/18 18:59 06:59 18:59 Intake Total 240 / 240 Balance 240 / 240 Intake: Oral 240 / 240 Other: Date of Last Bowel Movement 03/22/18 Narrative: GENERAL: Well-developed, thin male patient, INAD, A&Ox3. Appears comfortable. SKIN: Warm and dry. No generalized rash. HEENT: Atraumatic. Normocephalic. EOMI. No scleral icterus. No nasal drainage. MMM. Airway patent. NECK: Supple, trachea midline. No lymphadenopathy. RIGHT SIDE PERMACATH IN PLACE FOR HD CARDIOVASCULAR: Regular rate and rhythm without murmurs, gallops, or rubs. RESPIRATORY: No accessory muscle use. Breath sounds equal bilaterally. Clear to auscultation bilaterally. GASTROINTESTINAL: Abdomen soft, non-tender, nondistended. +BS. MUSCULOSKELETAL: No cyanosis or edema noted. No obvious deformities. NEURO: Awake and alert. CN II-XII grossly intact. Able to move all extremities spontaneously. No focal neurological deficits. Normal speech. PSYCHIATRIC: Appropriate mood and affect. Calm and cooperative. Results - Labs CBC & Chem 7: 03/20/18 06:46 03/22/18 06:49 Laboratory Results - last 24 hr 03/22/18 06:49 Sodium 136 Potassium 5.0 Chloride 100 Carbon Dioxide 26.6 Anion Gap 9 BUN 55 H Creatinine 5.81 H Estimated GFR 10 L Random Glucose 92 Calcium 8.9 Phosphorus 5.9 H Albumin 3.2 L - Imaging Abdomen/Pelvis CT 03/11/18 22:35 CONCLUSION: 1. CT findings characteristic of chronic pancreatitis. 2. Fluid-filled, mildly distended small bowel loops throughout the abdomen with stool identified in the colon. No findings of obstruction, however. Findings could represent a mild hypodynamic ileus. 3. I do not see an obvious etiology for the patient's flank pain and hematuria. Specifically, no hydronephrosis or stones. Central Venous Line 03/13/18 00:00 CONCLUSION: Chest X-Ray 03/14/18 00:00 CONCLUSION: 1. Interval placement of right double lumen central venous line. 2. Mild hazy opacity in both lungs which appears mildly increased. This could represent a viral pneumonitis or interstitial lung changes. Renal Biopsy CT 03/14/18 08:00 CONCLUSION: Upper Extremity Ultrasound 03/20/18 00:00 CONCLUSION: 1. Venous mapping as above. Venous Doppler Study 03/20/18 00:00 CONCLUSION: 1. The study is negative for bilateral upper extremity deep venous thrombosis. - Procedures PERMACATH 03-13 BY IR RENAL BIOPSY 03-14 Assessment and Plan - Assessment (1) Acute renal failure Code(s): N17.9 - Acute kidney failure, unspecified Status: Acute (2) Hypocalcemia Code(s): E83.51 - Hypocalcemia Status: Acute (3) HTN (hypertension) Code(s): I10 - Essential (primary) hypertension Status: Acute (4) Secondary hyperparathyroidism of renal origin Code(s): N25.81 - Secondary hyperparathyroidism of renal origin Status: Acute - Plan 52-year-old male admitted secondary to acute renal failure Acute renal failure Prior biopsy proven MPGN secondary to Hep C, likely relapsed Likely ESRD he is nonoliguric Nephrology following. s/p HD today. Vas-Cath placement 03-13. Vascular consulted by Nephrology for AVF placement. Planning for AVF Sunday with Dr. Ferrer. Continue with HD TTS per nephrology. Avoid nephrotoxins Continue on Phoslo Continue to monitor kidney function Hypocalcemia, resolved Vitamin D deficiency continue on Vitamin D and calcitriol Follow calcium levels Hypertension, controlled Continue on amlodipine, Bumex and hydralazine. Clonidine as needed Continue to monitor BP and adjust treatment accordingly Cocaine abuse Urine drug screen positive for cocaine Discussed cessation Hepatitis C - patient was approved for Harvoni treatment last year but did not follow-up as outpatient Thrombocytopenia, mild, stable PT 10.7/INR 1.1 no e/o active bleeding standard precautions Avoid hepatotoxic agents Discussed with patient follow-up with GI as outpatient Constipation, resolved continue on scheduled PeriColace Monitor for BM Insomnia trial of Melatonin Social barriers Patient is homeless and has no payor source CM assisting with discharge planning DVT prophylaxis Heparin Code Status: patient, nursing staff, Dr. Arvizu Discharge Planning: Patient is unsafe discharge. Needs ongoing HD treatment. He is homeless and has no payor source. Case management is assisting with ongoing discharge planning. (1) Acute renal failure Qualifiers: Acute renal failure type: unspecified Qualified Code(s): N17.9 - Acute kidney failure, unspecified
[2018-03-23] MEDS: amLODIPine 10 MG Tablet PO SCH (08:32)
--- NOTE | 2018-03-23 09:46 | P.PNNP ---
Subjective Interval history: Patient seen during HD, alert, no complaint. Physical Exam Vital signs: Vital Signs 03/22/18 13:23 03/22/18 20:00 03/23/18 00:00 Temperature 98.2 F 97.6 F 98.6 F Pulse Rate 77 68 80 Respiratory Rate 16 20 19 Blood Pressure 123/73 130/82 122/72 Pulse Oximetry 96 97 95 03/23/18 04:00 03/23/18 08:00 Temperature 98.2 F Pulse Rate 71 67 Respiratory Rate 19 20 Blood Pressure 123/75 Pulse Oximetry 96 96 Intake & Output 03/22/18 03/23/18 03/23/18 18:59 06:59 18:59 Intake Total 240 / 240 Balance 240 / 240 Intake: Oral 240 / 240 Other: Date of Last Bowel Movement 03/22/18 Narrative: GENERAL: Patient is alert, A&Ox3. Appears comfortable. SKIN: Warm and dry. No generalized rash. HEENT: Atraumatic. Normocephalic. EOMI. No scleral icterus. No nasal drainage. MMM. Airway patent. NECK: Supple, trachea midline. No lymphadenopathy. RIGHT SIDE PERMACATH IN PLACE FOR HD CARDIOVASCULAR: Regular rate and rhythm without murmurs, gallops, or rubs. RESPIRATORY: No accessory muscle use. Breath sounds equal bilaterally. Clear to auscultation bilaterally. GASTROINTESTINAL: Abdomen soft, non-tender, nondistended. +BS. MUSCULOSKELETAL: No cyanosis or edema noted. No obvious deformities. NEURO: Awake and alert. CN II-XII grossly intact. Able to move all extremities spontaneously. No focal neurological deficits. Normal speech. PSYCHIATRIC: Appropriate mood and affect. Calm and cooperative. Assessment and Plan - Assessment (1) ESRD (end stage renal disease) Code(s): N18.6 - End stage renal disease Status: Acute Plan: Prior biopsy proven Hepatitis C related MPGN. He was able to come off dialysis in 2013. In 2015 his Creatinine was 2.3. s/p renal biopsy. Started on HD 03/13. Continue dialysis support TTS. Likely has reached ESRD. Remains non oliguric, continue Bumex once daily. s/p PermCath placement 03/13. Vascular planning for AVF placement Sunday, 03/25. Will make NPO Sunday at [place]. On high protein, low K diet. On supplements for nutritional support. Obtain labs intermittently. He is homeless and uninsured. Will need these issues addressed for outpatient HD plans. He will need to enter the transitional program [place] [facility] [place] but will need to have a residence with an address prior to being accepted. Appreciate CM assistance. Have asked the pt to look into fpc or group home house. He is also a [place] , CM was asked to look into possible benefits. HD now, for AVF on Sunday. (2) Secondary hyperparathyroidism of renal origin Code(s): N25.81 - Secondary hyperparathyroidism of renal origin Status: Acute Plan: With hypocalcemia On vitamin D and calcitriol. On calcium acetate with meals for metabolic bone disorder. (3) HTN (hypertension) Code(s): I10 - Essential (primary) hypertension Status: Acute Plan: On Amlodipine, Bumex, and Hydralazine. PRN clonidine is ordered. Fluid removal as needed with dialysis.
[2018-03-23] MEDS: Heparin 10,000 UNITS/10 ML Vial (for IV use) OTHER PRN (11:44)
--- NOTE | 2018-03-24 07:57 | P.PN ---
Subjective Interval history: Follow-up on patient with acute renal failure. Patient seen and examined. Patient encountered ambulating around the unit. He tells me he was honorably discharged from the [facility] after 3 years of service and may have benefits as a result. ELICEO JOYNER who will discuss further with patient. He denies any acute medical complaints. States he feels well. He is having AV fistula tomorrow. ELICEO nursing staff, no acute issues noted. Physical Exam Vital signs: Vital Signs 03/23/18 08:00 03/23/18 16:00 03/23/18 20:00 Temperature 98.5 F 98.6 F Pulse Rate 67 67 80 Respiratory Rate 20 20 16 Blood Pressure 123/75 104/63 99/70 L Pulse Oximetry 96 96 96 03/24/18 00:00 03/24/18 02:40 03/24/18 04:00 Temperature 98.6 F 98.6 F Pulse Rate 74 88 Respiratory Rate 17 20 18 Blood Pressure 130/82 147/90 H Pulse Oximetry 96 95 03/24/18 05:46 Temperature Pulse Rate 70 Respiratory Rate Blood Pressure Pulse Oximetry Intake & Output 03/23/18 03/24/18 03/24/18 18:59 06:59 18:59 Other: # Voids 2 Date of Last Bowel Movement 03/23/18 Narrative: GENERAL: Well-developed, thin male patient, INAD, A&Ox3. Appears comfortable. Ambulating around the unit without any noticeable difficulty. SKIN: Warm and dry. No generalized rash. HEENT: Atraumatic. Normocephalic. EOMI. No scleral icterus. No nasal drainage. MMM. Airway patent. NECK: Supple, trachea midline. No lymphadenopathy. RIGHT SIDE PERMACATH IN PLACE FOR HD CARDIOVASCULAR: Regular rate and rhythm without murmurs, gallops, or rubs. RESPIRATORY: No accessory muscle use. Breath sounds equal bilaterally. Clear to auscultation bilaterally. GASTROINTESTINAL: Abdomen soft, non-tender, nondistended. +BS. MUSCULOSKELETAL: No cyanosis or edema noted. No obvious deformities. NEURO: Awake and alert. CN II-XII grossly intact. Able to move all extremities spontaneously. No focal neurological deficits. Normal speech. PSYCHIATRIC: Appropriate mood and affect. Calm and cooperative. Results - Labs CBC & Chem 7: 03/20/18 06:46 03/22/18 06:49 - Imaging Abdomen/Pelvis CT 03/11/18 22:35 CONCLUSION: 1. CT findings characteristic of chronic pancreatitis. 2. Fluid-filled, mildly distended small bowel loops throughout the abdomen with stool identified in the colon. No findings of obstruction, however. Findings could represent a mild hypodynamic ileus. 3. I do not see an obvious etiology for the patient's flank pain and hematuria. Specifically, no hydronephrosis or stones. Central Venous Line 03/13/18 00:00 CONCLUSION: Chest X-Ray 03/14/18 00:00 CONCLUSION: 1. Interval placement of right double lumen central venous line. 2. Mild hazy opacity in both lungs which appears mildly increased. This could represent a viral pneumonitis or interstitial lung changes. Renal Biopsy CT 03/14/18 08:00 CONCLUSION: Upper Extremity Ultrasound 03/20/18 00:00 CONCLUSION: 1. Venous mapping as above. Venous Doppler Study 03/20/18 00:00 CONCLUSION: 1. The study is negative for bilateral upper extremity deep venous thrombosis. - Procedures PERMACATH 03-13 BY IR RENAL BIOPSY 03-14 Assessment and Plan - Assessment (1) Acute renal failure Code(s): N17.9 - Acute kidney failure, unspecified Status: Acute (2) Hypocalcemia Code(s): E83.51 - Hypocalcemia Status: Acute (3) HTN (hypertension) Code(s): I10 - Essential (primary) hypertension Status: Acute (4) Secondary hyperparathyroidism of renal origin Code(s): N25.81 - Secondary hyperparathyroidism of renal origin Status: Acute - Plan 52-year-old male admitted secondary to acute renal failure Acute renal failure Prior biopsy proven MPGN secondary to Hep C, likely relapsed Likely ESRD he is nonoliguric Nephrology following. s/p HD yesterday. Continue on HD schedule TTS per Nephrology. Vas-Cath placement 03-13. Vascular consulted by Nephrology for AVF placement. Planning for AVF tomorrow with Dr. Ferrer. Avoid nephrotoxins Continue on Phoslo Continue to monitor kidney function Hypocalcemia, resolved Vitamin D deficiency continue on Vitamin D and calcitriol Follow calcium levels Hypertension, overall controlled Continue on amlodipine, Bumex and hydralazine. Clonidine as needed Continue to monitor BP and adjust treatment accordingly Cocaine abuse Urine drug screen positive for cocaine Discussed cessation Hepatitis C - patient was approved for [facility] treatment last year but did not follow-up as outpatient Thrombocytopenia, mild, stable PT 10.7/INR 1.1 no e/o active bleeding standard precautions Avoid hepatotoxic agents Discussed with patient follow-up with GI as outpatient Constipation, resolved continue on scheduled PeriColace Monitor for BM Insomnia trial of Melatonin Social barriers Patient is homeless and has no payor source- may have VA benefits as he was honorably discharged from the [facility]. ELICEO case management. CM assisting with discharge planning DVT prophylaxis Heparin Code Status: FULL Discussed Condition With: patient, nursing staff, Dr. Arvizu Discharge Planning: Patient is unsafe discharge. Needs ongoing HD treatment. He is homeless and has no payor source. May have VA benefits. ELICEO Case management. (1) Acute renal failure Qualifiers: Acute renal failure type: unspecified Qualified Code(s): N17.9 - Acute kidney failure, unspecified
[2018-03-24] MEDS: amLODIPine 10 MG Tablet PO SCH (08:43)
[2018-03-24] MEDS: Calcitriol 0.25 MCG Capsule PO SCH (08:43)
[2018-03-24] MEDS: Senna/Docusate Sodium 8.6/50 MG Tablet PO SCH ×2 (08:43→22:15)
[2018-03-24] MEDS: Calcium Acetate 667 MG Capsule PO SCH ×3 (08:44→17:58)
[2018-03-24] MEDS: Heparin - SQ 10,000 UNITS/ML Vial SQ SCH ×2 (08:44→22:15)
--- NOTE | 2018-03-24 11:43 | P.PNNP ---
Subjective Interval history: Patient is alert, no SOB, eating better, no complaint. Physical Exam Vital signs: Vital Signs 03/23/18 16:00 03/23/18 20:00 03/24/18 00:00 Temperature 98.5 F 98.6 F 98.6 F Pulse Rate 67 80 74 Respiratory Rate 20 16 17 Blood Pressure 104/63 99/70 L 130/82 Pulse Oximetry 96 96 96 03/24/18 02:40 03/24/18 04:00 03/24/18 05:46 Temperature 98.6 F Pulse Rate 88 70 Respiratory Rate 20 18 Blood Pressure 147/90 H Pulse Oximetry 95 03/24/18 08:00 Temperature 97.9 F Pulse Rate 66 Respiratory Rate 20 Blood Pressure 153/96 H Pulse Oximetry 97 Intake & Output 03/23/18 03/24/18 03/24/18 18:59 06:59 18:59 Other: # Voids 2 Date of Last Bowel Movement 03/23/18 Narrative: GENERAL: Well-developed, thin male patient, INAD, A&Ox3. Appears comfortable. Ambulating around the unit without any noticeable difficulty. SKIN: Warm and dry. No generalized rash. HEENT: Atraumatic. Normocephalic. EOMI. No scleral icterus. No nasal drainage. MMM. Airway patent. NECK: Supple, trachea midline. No lymphadenopathy. RIGHT SIDE PERMACATH IN PLACE FOR HD CARDIOVASCULAR: Regular rate and rhythm without murmurs, gallops, or rubs. RESPIRATORY: No accessory muscle use. Breath sounds equal bilaterally. Clear to auscultation bilaterally. GASTROINTESTINAL: Abdomen soft, non-tender, nondistended. +BS. MUSCULOSKELETAL: No cyanosis or edema noted. No obvious deformities. NEURO: Awake and alert. CN II-XII grossly intact. Able to move all extremities spontaneously. No focal neurological deficits. Normal speech. PSYCHIATRIC: Appropriate mood and affect. Calm and cooperative. Assessment and Plan - Assessment (1) ESRD (end stage renal disease) Code(s): N18.6 - End stage renal disease Status: Acute Plan: Prior biopsy proven Hepatitis C related MPGN. He was able to come off dialysis in 2013. In 2015 his Creatinine was 2.3. s/p renal biopsy. Started on HD 03/13. Continue dialysis support TTS. Likely has reached ESRD. Remains non oliguric, continue Bumex once daily. s/p PermCath placement 03/13. Vascular planning for AVF placement Sunday, 03/25. Will make NPO Sunday at [place]. On high protein, low K diet. On supplements for nutritional support. Obtain labs intermittently. He is homeless and uninsured. Will need these issues addressed for outpatient HD plans. [place] will need to [place] [facility] [place] need to have a residence with an address prior to being accepted. Appreciate CM assistance. Have asked the pt to look into correction or assisted house. He is also a [place] , CM was asked to look into possible benefits. HD done yesterday, for AVF on Sunday. Dr. Smith will follow from AM. (2) Secondary hyperparathyroidism of renal origin Code(s): N25.81 - Secondary hyperparathyroidism of renal origin Status: Acute Plan: With hypocalcemia On vitamin D and calcitriol. On calcium acetate with meals for metabolic bone disorder. (3) HTN (hypertension) Code(s): I10 - Essential (primary) hypertension Status: Acute Plan: On Amlodipine, Bumex, and Hydralazine. PRN clonidine is ordered. Fluid removal as needed with dialysis.
[2018-03-25] MEDS ORDERED: Chlorhexidine Gluconate 2% 1 Pack (2 Cloths) TOPICAL SCH (04:30)
[2018-03-25] MEDS ORDERED: Metoprolol Tartrate 25 MG Tablet PO SCH (04:30)
[2018-03-25] MEDS ORDERED: Sodium Chlor 0.9% Inj 500 ML IV.SIG SCH (05:00)
--- NOTE | 2018-03-25 07:22 | P.PN ---
Subjective Interval history: Follow-up on patient with acute renal failure. Patient seen and examined. Patient is NPO to undergo AV fistula today. He denies any acute medical complaints. Discussed with nursing staff, no acute issues noted. VSS. Physical Exam Vital signs: Vital Signs 03/24/18 08:00 03/24/18 12:00 03/24/18 16:00 Temperature 97.9 F 97.7 F 97.9 F Pulse Rate 66 75 73 Respiratory Rate 20 20 20 Blood Pressure 153/96 H 135/94 H 112/65 Pulse Oximetry 97 96 94 L 03/24/18 20:00 03/25/18 00:00 03/25/18 04:00 Temperature 97.9 F 98.3 F 98.9 F Pulse Rate 72 71 68 Respiratory Rate 20 18 18 Blood Pressure 149/79 H 124/73 129/73 Pulse Oximetry 97 95 18 L Intake & Output 03/24/18 03/25/18 03/25/18 18:59 06:59 18:59 Weight 61.6 kg Other: # Voids 2 2 Date of Last Bowel Movement 03/24/18 03/23/18 # Bowel Movements 0 Narrative: GENERAL: Well-developed, thin male patient, INAD, A&Ox3. Appears comfortable. Lying in bed awake and alert. SKIN: Warm and dry. No generalized rash. HEENT: Atraumatic. Normocephalic. EOMI. No scleral icterus. No nasal drainage. MMM. Airway patent. NECK: Supple, trachea midline. No lymphadenopathy. RIGHT SIDE PERMACATH IN PLACE FOR HD CARDIOVASCULAR: Regular rate and rhythm without murmurs, gallops, or rubs. RESPIRATORY: No accessory muscle use. Breath sounds equal bilaterally. Clear to auscultation bilaterally. GASTROINTESTINAL: Abdomen soft, non-tender, nondistended. +BS. MUSCULOSKELETAL: No cyanosis or edema noted. No obvious deformities. NEURO: Awake and alert. CN II-XII grossly intact. Able to move all extremities spontaneously. No focal neurological deficits. Normal speech. PSYCHIATRIC: Appropriate mood and affect. Calm and cooperative. Results - Labs CBC & Chem 7: 03/20/18 06:46 03/22/18 06:49 - Imaging Abdomen/Pelvis CT 03/11/18 22:35 CONCLUSION: 1. CT findings characteristic of chronic pancreatitis. 2. Fluid-filled, mildly distended small bowel loops throughout the abdomen with stool identified in the colon. No findings of obstruction, however. Findings could represent a mild hypodynamic ileus. 3. I do not see an obvious etiology for the patient's flank pain and hematuria. Specifically, no hydronephrosis or stones. Central Venous Line 03/13/18 00:00 CONCLUSION: Chest X-Ray 03/14/18 00:00 CONCLUSION: 1. Interval placement of right double lumen central venous line. 2. Mild hazy opacity in both lungs which appears mildly increased. This could represent a viral pneumonitis or interstitial lung changes. Renal Biopsy CT 03/14/18 08:00 CONCLUSION: Upper Extremity Ultrasound 03/20/18 00:00 CONCLUSION: 1. Venous mapping as above. Venous Doppler Study 03/20/18 00:00 CONCLUSION: 1. The study is negative for bilateral upper extremity deep venous thrombosis. - Procedures PERMACATH 03-13 BY IR RENAL BIOPSY 03-14 Assessment and Plan - Assessment (1) Acute renal failure Code(s): N17.9 - Acute kidney failure, unspecified Status: Acute (2) Hypocalcemia Code(s): E83.51 - Hypocalcemia Status: Acute (3) HTN (hypertension) Code(s): I10 - Essential (primary) hypertension Status: Acute (4) Secondary hyperparathyroidism of renal origin Code(s): N25.81 - Secondary hyperparathyroidism of renal origin Status: Acute - Plan 52-year-old male admitted secondary to acute renal failure Acute renal failure Prior biopsy proven MPGN secondary to Hep C, likely relapsed Likely ESRD he is nonoliguric Nephrology following. s/p HD Sunday. Continue on HD schedule TTS per Nephrology. Vas-Cath placement 03-13. Vascular consulted by Nephrology for AVF placement. Patient is NPO, AV fistula scheduled for today. Avoid nephrotoxins Continue on Phoslo Continue to monitor kidney function Hypocalcemia, resolved Vitamin D deficiency continue on Vitamin D and calcitriol Follow calcium levels Hypertension, overall controlled Continue on amlodipine, Bumex and hydralazine. Clonidine as needed Continue to monitor BP and adjust treatment accordingly Cocaine abuse Urine drug screen positive for cocaine Discussed cessation Hepatitis C - patient was approved for [facility] treatment last year but did not follow-up as outpatient Thrombocytopenia, mild, stable PT 10.7/INR 1.1 no e/o active bleeding standard precautions Avoid hepatotoxic agents Discussed with patient follow-up with GI as outpatient Constipation, resolved continue on scheduled PeriColace Monitor for BM Insomnia trial of Melatonin Social barriers Patient is homeless and has no payor source- may have VA benefits as he was honorably discharged from the [facility]. ELICEO case management. CM assisting with discharge planning DVT prophylaxis Heparin Code Status: Full Discussed Condition With: patient, nursing staff, Dr. Arvizu Discharge Planning: Patient is unsafe discharge. Needs ongoing HD treatment. He is homeless and has no payor source. May have VA benefits. ELICEO Case management. Discharge pending Nephrology clearance. (1) Acute renal failure Qualifiers: Acute renal failure type: unspecified Qualified Code(s): N17.9 - Acute kidney failure, unspecified
--- NOTE | 2018-03-25 08:53 | P.PNVS ---
- Pre-operative Note Planned Procedure: Left Upper Extremity Brachial Artery to Axillary Vein Arteriovenous Graft (PTFE ) Interval History: 52/M with ESRD on HD Labs: WBC 4.3 th/mm3 (4.0-11.0) 03/20/18 06:46 RBC 4.67 mil/mm3 (4.50-5.90) 03/20/18 06:46 Hgb 13.1 gm/dL (13.0-17.0) 03/20/18 06:46 Hct 39.9 % (39.0-51.0) 03/20/18 06:46 MCV 85.5 fL (80.0-100.0) 03/20/18 06:46 MCH 28.0 pg (27.0-34.0) 03/20/18 06:46 MCHC 32.8 % (32.0-36.0) 03/20/18 06:46 RDW 14.5 % (11.6-17.2) 03/20/18 06:46 Plt Count 115 th/mm3 (150-450) L 03/20/18 06:46 MPV 8.5 fL (7.0-11.0) 03/20/18 06:46 INR 1.1 Ratio 03/11/18 23:21 Sodium 136 meq/L (136-145) 03/22/18 06:49 Potassium 5.0 meq/L (3.5-5.1) 03/22/18 06:49 Chloride 100 meq/L (98-107) 03/22/18 06:49 Carbon Dioxide 26.6 meq/L (21.0-32.0) 03/22/18 06:49 Anion Gap 9 meq/L (5-15) 03/22/18 06:49 BUN 55 mg/dL (7-18) H 03/22/18 06:49 Random Glucose 92 mg/dL (74-106) 03/22/18 06:49 Calcium 8.9 mg/dL (8.5-10.1) 03/22/18 06:49 Imaging: ITS Impressions Abdomen/Pelvis CT 03/11/18 22:35 CONCLUSION: 1. CT findings characteristic of chronic pancreatitis. 2. Fluid-filled, mildly distended small bowel loops throughout the abdomen with stool identified in the colon. No findings of obstruction, however. Findings could represent a mild hypodynamic ileus. 3. I do not see an obvious etiology for the patient's flank pain and hematuria. Specifically, no hydronephrosis or stones. Central Venous Line 03/13/18 00:00 CONCLUSION: Chest X-Ray 03/14/18 00:00 CONCLUSION: 1. Interval placement of right double lumen central venous line. 2. Mild hazy opacity in both lungs which appears mildly increased. This could represent a viral pneumonitis or interstitial lung changes. Renal Biopsy CT 03/14/18 08:00 CONCLUSION: Upper Extremity Ultrasound 03/20/18 00:00 CONCLUSION: 1. Venous mapping as above. Venous Doppler Study 03/20/18 00:00 CONCLUSION: 1. The study is negative for bilateral upper extremity deep venous thrombosis. Operative site marked: Yes Consent: Informed consent has been obtained from Christiano Douglass. I have explained the procedure in detail and discussed the risks, benefits, and potential complications. All questions have been answered.
[2018-03-25] MEDS: Calcium Acetate 667 MG Capsule PO SCH ×3 (09:35→18:10)
[2018-03-25] MEDS: Calcitriol 0.25 MCG Capsule PO SCH (09:35)
[2018-03-25] MEDS: amLODIPine 10 MG Tablet PO SCH (09:35)
[2018-03-25] MEDS: Senna/Docusate Sodium 8.6/50 MG Tablet PO SCH ×2 (09:35→22:09)
[2018-03-25] MEDS: Heparin - SQ 10,000 UNITS/ML Vial SQ SCH ×2 (09:42→22:09)
[2018-03-25] MEDS ORDERED: Heparin 10,000 UNITS/10 ML Vial (for IV use) ONE ×2 (10:35→12:30)
[2018-03-25] MEDS ORDERED: Heparin/NS PF Inj 0 ML ONE (10:35)
[2018-03-25] MEDS ORDERED: Phenylephrine/NS 1000 MCG/10ML Syringe IV.PUSH ONE (12:00)
[2018-03-25] MEDS ORDERED: Sodium Chlor 0.9% Inj 250 ML IV.SIG ONE (12:00)
[2018-03-25] MEDS ORDERED: Lidocaine PF 1% Inj 5 ML Syringe INFILTRATN ONE (12:00)
--- NOTE | 2018-03-25 12:13 | P.PNNP ---
Subjective Interval history: NPO for AVF surgery today. Not with any complaints. Resting. <Sydnee Morrison - Last Filed: 03/25/18 12:09> Physical Exam Vital signs: Vital Signs 03/24/18 16:00 03/24/18 20:00 03/25/18 00:00 Temperature 97.9 F 97.9 F 98.3 F Pulse Rate 73 72 71 Respiratory Rate 20 20 18 Blood Pressure 112/65 149/79 H 124/73 Pulse Oximetry 94 L 97 95 03/25/18 04:00 Temperature 98.9 F Pulse Rate 68 Respiratory Rate 18 Blood Pressure 129/73 Pulse Oximetry 18 L Intake & Output 03/24/18 03/25/18 03/25/18 18:59 06:59 18:59 Weight 61.6 kg Other: # Voids 2 2 Date of Last Bowel Movement 03/24/18 03/23/18 # Bowel Movements 0 - Constitutional no acute distress, chronically ill appearing - Routine HEENT Exam Head: Present: normocephalic - Routine Neck Exam Present: supple - Routine Respiratory Exam Present: CTA bilaterally. Absent: accessory muscle use - Routine Cardiovascular Exam Present: RRR, S1, S2 - Routine Abdominal Exam Present: soft, normoactive bowel sounds - Routine Extremities Exam Present: full ROM. Absent: edema - Routine Skin Exam Present: intact, dry, warm - Routine Neurological Exam Present: alert, oriented X3, CN II-XII intact - Detailed Neurological Exam: Coma Scale Eye Opening: Spontaneous Verbal Response: Oriented Motor Response: Obey commands Driscoll Coma Scale Total: 15 <Sydnee Morrison - Last Filed: 03/25/18 12:09> Vital signs: Vital Signs 03/24/18 16:00 03/24/18 20:00 03/25/18 00:00 Temperature 97.9 F 97.9 F 98.3 F Pulse Rate 73 72 71 Respiratory Rate 20 20 18 Blood Pressure 112/65 149/79 H 124/73 Pulse Oximetry 94 L 97 95 03/25/18 04:00 03/25/18 08:00 03/25/18 12:00 Temperature 98.9 F 98.3 F Pulse Rate 68 68 71 Respiratory Rate 18 18 Blood Pressure 129/73 140/83 Pulse Oximetry 18 L 96 Intake & Output 03/24/18 03/25/18 03/25/18 18:59 06:59 18:59 Intake Total 550 / 550 Output Total 410 / 410 Balance 140 / 140 Weight 61.6 kg Intake: Anesthesia Amount 550 / 550 Output: Urine 400 / 400 Estimated Blood Loss Other: # Voids 2 2 Date of Last Bowel Movement 03/24/18 03/23/18 03/23/18 # Bowel Movements 0 <David Smith - Last Filed: 03/25/18 14:39> Assessment and Plan - Assessment (1) ESRD (end stage renal disease) Code(s): N18.6 - End stage renal disease Status: Acute Plan: Prior biopsy proven Hepatitis C related MPGN. He was able to come off dialysis in 2013. In 2015 his Creatinine was 2.3. s/p renal biopsy here. Started on HD 03/13. Continue dialysis support TTS. Likely has reached ESRD. Remains non oliguric, continue Bumex once daily. s/p PermCath placement 03/13. Vascular will place AVF today. Resume high protein, low K diet post op. Obtain labs intermittently. He is homeless and uninsured. Will need these issues addressed for outpatient HD plans. He will need to enter the transitional program at [facility] [place], but will need to have a residence with an address prior to being accepted. Appreciate CM assistance. Have asked the pt to look into [facility] or intermediate house. He is also a [place] , CM was asked to look into possible benefits. (2) Secondary hyperparathyroidism of renal origin Code(s): N25.81 - Secondary hyperparathyroidism of renal origin Status: Acute Plan: With hypocalcemia On vitamin D and calcitriol. On calcium acetate with meals for metabolic bone disorder. (3) HTN (hypertension) Code(s): I10 - Essential (primary) hypertension Status: Acute Plan: On Amlodipine, Bumex, and Hydralazine. PRN clonidine is ordered. Fluid removal as needed with dialysis. <Sydnee Morrison - Last Filed: 03/25/18 12:09> - Assessment (1) ESRD (end stage renal disease) Code(s): N18.6 - End stage renal disease Status: Acute (2) Secondary hyperparathyroidism of renal origin Code(s): N25.81 - Secondary hyperparathyroidism of renal origin Status: Acute (3) HTN (hypertension) Code(s): I10 - Essential (primary) hypertension Status: Acute - Attending Attestation patient was seen and examined. Agree with above assessment and plan. <David Smith - Last Filed: 03/25/18 14:39>
[2018-03-25] MEDS ORDERED: Protamine Sulfate Inj 50 MG/5 ML Vial ONE (12:30)
[2018-03-25] MEDS ORDERED: Heparin/NS PF Inj 500 ML ONE (12:31)
[2018-03-25] MEDS: Bupivacaine PF 0.5% Inj 30 ML Vial ONE ×2 (13:59→22:04)
[2018-03-25] MEDS: Thrombin Topical 20,000 UNIT Spray Kit TOPICAL ONE ×2 (14:00→22:05)
--- NOTE | 2018-03-25 14:27 | P.OP ---
Date of procedure: 03/25/18 Procedure: LEFT brachiobasilic AVF (1st stage) Implants: none Anesthesia: GETA Surgeon: Karl Ferrer MD Refrigeration Specialist: Bishop Leos Estimated blood loss (mL): 10 IV fluids (mL): 550 Pathology: none sent Operation and Findings: L basilic vein explored intra-operatively, found to be 3-4 mm. Successful AVF + Doppler signal in wrist and palpable thrill in upper arm after AVF
[2018-03-25] MEDS ORDERED: fentaNYL Citrate Inj 100 MCG/2 ML Ampul ONE (14:53)
--- NOTE | 2018-03-25 16:37 | MP ---
cc: Karl Ferrer MD DATE OF OPERATION: 03/25/2018 PREOPERATIVE DIAGNOSIS: Endstage renal disease, need for dialysis access. POSTOPERATIVE DIAGNOSIS: Endstage renal disease, need for dialysis access. PROCEDURE PERFORMED: Left brachiobasilic arteriovenous fistula (first stage). ATTENDING SURGEON: Karl Ferrer MD MINE EQUIPMENT DESIGN ENGINEER SURGEON: Bishop Leos. ANESTHESIA: General. INDICATIONS FOR PROCEDURE: Mr. Douglass is a 52-year-old gentleman with new onset end-stage renal disease and currently on dialysis. Preoperative imaging suggested he had inadequate autogenous veins. However, intraoperatively, it was found that his basilic vein was adequate and this was used as a fistula. DESCRIPTION OF PROCEDURE: Informed consent was obtained from the patient. He was taken to the operating room and placed supine on the operating table. An appropriate timeout was taken to ensure the patient's identity, the operative site and planned procedure. The administration of 1 gram of vancomycin was initiated prior to skin incision and will be discontinued after a single preoperative dose. Everyone in the room agreed with the timeout and we proceeded. His left arm was prepped and draped. An incision was made over the distal aspect of the upper arm, carried down through subcutaneous tissue with electrocautery. The basilic vein was identified and dissected free for several centimeters. Side branches were ligated with 3-0 silk. The vein was marked for orientation clip, clamped with a Shadi bulldog proximally, right angle distally and the distal end was transected and oversewn with 3-0 silk suture. The brachial artery was identified in the medial aspect of the incision. It was dissected free for a couple centimeters. The patient was systemically heparinized with 3000 units of IV heparin. Proximal and distal control of the brachial artery were obtained with profunda clamps and a longitudinal arteriotomy was made with an 11 blade, extended with Sagar scissors. The vein was spatulated and sewn end-to-side with running 6-0 Prolene suture. At the completion, it was flushed and noted to be hemostatic and there was a nice thrill in the fistula after the clamps were released and a nice Doppler signal in the wrist. Heparin was reversed with protamine. The wound was infiltrated with Marcaine, irrigated, made hemostatic and closed with 2-0 Polysorb and 4-0 Monocryl. Sponge and needle counts were correct at the end of the case. I was present, scrubbed, and performed the entire procedure. MD REINA Beard/TAMANNA , 04:01 PM , 04:10 PM
[2018-03-25] MEDS ORDERED: Lactic Acid (Ammonium Lactate) 12% Lotion 225 GM Bottle TOPICAL SCH (21:00)
--- NOTE | 2018-03-26 07:35 | ECG ---
Date Performed: 03/25/2018 Time Performed: 08:17:54 PTAGE: 52 years EKG: Sinus rhythm NONSPECIFIC ST & T-WAVE ABNORMALITY BORDERLINE ECG PREVIOUS TRACING : 07/07/2016 20.35 DOCTOR: Norma Romeo Interpretating Date/Time 03/26/2018 07:32:02
[2018-03-26] MEDS: amLODIPine 10 MG Tablet PO SCH ×2 (08:06→13:08)
[2018-03-26] MEDS: Senna/Docusate Sodium 8.6/50 MG Tablet PO SCH ×3 (08:16→23:08)
[2018-03-26] MEDS: Calcium Acetate 667 MG Capsule PO SCH ×3 (08:16→21:20)
[2018-03-26 08:34] LABS: Calcium 8.4 mg/dL (8.5-10.1); Carbon Dioxide 22.8 meq/L (21.0-32.0); Potassium 4.7 meq/L (3.5-5.1)
--- NOTE | 2018-03-26 10:26 | P.PNNP ---
Subjective Interval history: Successful AVF creation yesterday. Doing well. Seen during dialysis. <TamikoJovanniSydnee B. - Last Filed: 03/26/18 10:22> Physical Exam Vital signs: Vital Signs 03/25/18 12:00 03/25/18 14:42 03/25/18 14:45 Temperature 97.8 F Pulse Rate 71 62 65 Respiratory Rate 16 16 Blood Pressure 109/66 109/66 Pulse Oximetry 99 95 03/25/18 15:00 03/25/18 15:15 03/25/18 16:00 Temperature 97.4 F L 97.5 F L Pulse Rate 64 63 64 Respiratory Rate 16 16 18 Blood Pressure 118/72 113/63 118/71 Pulse Oximetry 95 93 L 96 03/25/18 20:00 03/26/18 00:00 03/26/18 01:34 Temperature 98 F 97.7 F Pulse Rate 75 73 75 Respiratory Rate 18 17 Blood Pressure 120/60 129/70 Pulse Oximetry 96 95 03/26/18 03:40 03/26/18 04:00 03/26/18 08:00 Temperature 98 F 98.0 F Pulse Rate 62 75 70 Respiratory Rate 16 17 Blood Pressure 115/63 152/81 H Pulse Oximetry 99 97 Intake & Output 03/25/18 03/26/18 03/26/18 18:59 06:59 18:59 Intake Total 650 / 650 1775 / 1775 600 / 600 Output Total 410 / 410 1000 / 1000 Balance 240 / 240 775 / 775 600 / 600 Weight 62 kg Intake: Oral 1775 / 1775 600 / 600 Anesthesia Amount 650 / 650 Output: Urine 400 / 400 1000 / 1000 Estimated Blood Loss 10 / 10 Other: # Voids 2 1 3 Date of Last Bowel Movement 03/23/18 03/24/18 03/24/18 # Bowel Movements 1 0 - Constitutional no acute distress, chronically ill appearing, disheveled - Routine HEENT Exam Head: Present: normocephalic - Routine Neck Exam Present: supple, full ROM - Routine Respiratory Exam Present: CTA bilaterally. Absent: accessory muscle use - Routine Cardiovascular Exam Present: RRR, S1, S2 - Routine Abdominal Exam Present: soft, normoactive bowel sounds - Routine Extremities Exam Present: full ROM, pulses intact. Absent: edema - Routine Skin Exam Present: intact, warm - Routine Neurological Exam Present: alert, oriented X3, CN II-XII intact - Detailed Neurological Exam: Coma Scale Eye Opening: Spontaneous Verbal Response: Oriented Motor Response: Obey commands Reading Coma Scale Total: 15 - Routine Psychiatric Exam Present: normal affect, normal thought process <Sydnee Morrison - Last Filed: 03/26/18 10:22> Vital signs: Vital Signs 03/25/18 12:00 03/25/18 14:42 03/25/18 14:45 Temperature 97.8 F Pulse Rate 71 62 65 Respiratory Rate 16 16 Blood Pressure 109/66 109/66 Pulse Oximetry 99 95 03/25/18 15:00 03/25/18 15:15 03/25/18 16:00 Temperature 97.4 F L 97.5 F L Pulse Rate 64 63 64 Respiratory Rate 16 16 18 Blood Pressure 118/72 113/63 118/71 Pulse Oximetry 95 93 L 96 03/25/18 20:00 03/26/18 00:00 03/26/18 01:34 Temperature 98 F 97.7 F Pulse Rate 75 73 75 Respiratory Rate 18 17 Blood Pressure 120/60 129/70 Pulse Oximetry 96 95 03/26/18 03:40 03/26/18 04:00 03/26/18 08:00 Temperature 98 F 98.0 F Pulse Rate 62 75 70 Respiratory Rate 16 17 Blood Pressure 115/63 152/81 H Pulse Oximetry 99 97 Intake & Output 03/25/18 03/26/18 03/26/18 18:59 06:59 18:59 Intake Total 650 / 650 1775 / 1775 600 / 600 Output Total 410 / 410 1000 / 1000 1999 Balance 240 / 240 775 / 775 -1400 / -1400 Weight 62 kg Intake: Oral 1775 / 1775 600 / 600 Anesthesia Amount 650 / 650 Output: Urine 400 / 400 1000 / 1000 Hemodialysis Amount 1999 Estimated Blood Loss Other: # Voids 2 1 3 Date of Last Bowel Movement 03/23/18 03/24/18 03/24/18 # Bowel Movements 1 0 <David Smith - Last Filed: 03/26/18 11:38> Assessment and Plan - Assessment (1) ESRD (end stage renal disease) Code(s): N18.6 - End stage renal disease Status: Acute Plan: Prior biopsy proven Hepatitis C related MPGN. He was able to come off dialysis in 2013. In 2016 his Creatinine was 2.3. s/p renal biopsy here. HD initiated 03/13. Continue dialysis support TTS. Most likely he has reached ESRD. Seen during HD today on a 2K, 350 BFR, goal 1.5L Remains non oliguric, on Bumex once daily. s/p PermCath placement 03/13. S/P AVF creation 03/25. On a high protein, low K diet. Obtain labs intermittently. Ordered for today. He is homeless and uninsured. Will need these issues addressed for outpatient HD plans. He will need to enter the transitional program at [facility], but will need to have a residence with an address prior to being accepted. Appreciate CM assistance. Have asked the pt to look into penitentiary or snf house. He is also a [employer] , CM was asked to look into possible benefits. (2) Secondary hyperparathyroidism of renal origin Code(s): N25.81 - Secondary hyperparathyroidism of renal origin Status: Acute Plan: With hypocalcemia On vitamin D and calcitriol. On calcium acetate with meals for metabolic bone disorder. (3) HTN (hypertension) Code(s): I10 - Essential (primary) hypertension Status: Acute Plan: On Amlodipine, Bumex, and Hydralazine. PRN clonidine is ordered. Fluid removal as needed with dialysis. <Sydnee Morrison - Last Filed: 03/26/18 10:22> - Assessment (1) ESRD (end stage renal disease) Code(s): N18.6 - End stage renal disease Status: Acute (2) Secondary hyperparathyroidism of renal origin Code(s): N25.81 - Secondary hyperparathyroidism of renal origin Status: Acute (3) HTN (hypertension) Code(s): I10 - Essential (primary) hypertension Status: Acute - Attending Attestation patient was seen and examined. Agree with above assessment and plan. <David Smith - Last Filed: 03/26/18 11:38>
--- NOTE | 2018-03-26 11:00 | P.PNIM ---
Subjective Interval history: Follow-up for incisional disease Status post hemodialysis this morning, no complaints, denies any chest pain, shortness of breath or dizziness. Afebrile. Physical Exam Vital signs: Vital Signs 03/25/18 12:00 03/25/18 14:42 03/25/18 14:45 Temperature 97.8 F Pulse Rate 71 62 65 Respiratory Rate 16 16 Blood Pressure 109/66 109/66 Pulse Oximetry 99 95 03/25/18 15:00 03/25/18 15:15 03/25/18 16:00 Temperature 97.4 F L 97.5 F L Pulse Rate 64 63 64 Respiratory Rate 16 16 18 Blood Pressure 118/72 113/63 118/71 Pulse Oximetry 95 93 L 96 03/25/18 20:00 03/26/18 00:00 03/26/18 01:34 Temperature 98 F 97.7 F Pulse Rate 75 73 75 Respiratory Rate 18 17 Blood Pressure 120/60 129/70 Pulse Oximetry 96 95 03/26/18 03:40 03/26/18 04:00 03/26/18 08:00 Temperature 98 F 98.0 F Pulse Rate 62 75 70 Respiratory Rate 16 17 Blood Pressure 115/63 152/81 H Pulse Oximetry 99 97 Intake & Output 03/25/18 03/26/18 03/26/18 18:59 06:59 18:59 Intake Total 650 / 650 1775 / 1775 600 / 600 Output Total 410 / 410 1000 / 1000 Balance 240 / 240 775 / 775 600 / 600 Weight 62 kg Intake: Oral 1775 / 1775 600 / 600 Anesthesia Amount 650 / 650 Output: Urine 400 / 400 1000 / 1000 Estimated Blood Loss Other: # Voids 2 1 3 Date of Last Bowel Movement 03/23/18 03/24/18 03/24/18 # Bowel Movements 1 0 Narrative: GENERAL: Not in distress NECK: Supple, trachea midline. No lymphadenopathy. RIGHT SIDE PERMACATH IN PLACE FOR HD CARDIOVASCULAR: Regular rate and rhythm without murmurs, gallops, or rubs. RESPIRATORY: No accessory muscle use. Breath sounds equal bilaterally. Clear to auscultation bilaterally. GASTROINTESTINAL: Abdomen soft, non-tender, nondistended. +BS. MUSCULOSKELETAL: No cyanosis or edema noted. No obvious deformities. Left aVF , good bruit. NEURO: Awake and alert, oriented 3. CN II-XII grossly intact. Able to move all extremities spontaneously. No focal neurological deficits. Normal speech. Results - Labs CBC & Chem 7: 03/20/18 06:46 03/26/18 07:29 Laboratory Results - last 24 hr 03/26/18 07:29 Sodium 137 Potassium 4.7 Chloride 101 Carbon Dioxide 22.8 Anion Gap 13 BUN 87 H Creatinine 7.45 H Estimated GFR 8 L Random Glucose 116 H Calcium 8.4 L - Procedures PERMACATH 03-13 BY IR RENAL BIOPSY 03-14 Assessment and Plan - Assessment (1) Acute renal failure Code(s): N17.9 - Acute kidney failure, unspecified Status: Acute (2) Hypocalcemia Code(s): E83.51 - Hypocalcemia Status: Acute (3) HTN (hypertension) Code(s): I10 - Essential (primary) hypertension Status: Acute (4) Secondary hyperparathyroidism of renal origin Code(s): N25.81 - Secondary hyperparathyroidism of renal origin Status: Acute - Plan 52-year-old male admitted secondary to acute renal failure Acute renal failure Prior biopsy proven MPGN secondary to Hep C, likely relapsed Likely ESRD Nephrology following. Continue on HD schedule TTS per Nephrology. Vas-Cath placement 03-13, AV fistula inserted 03/25/2018 Avoid nephrotoxins , Continue on Phoslo Hypocalcemia, resolved Vitamin D deficiency continue on Vitamin D and calcitriol Follow calcium levels Hypertension, overall controlled Continue on amlodipine, Bumex and hydralazine. Clonidine as needed Cocaine abuse Urine drug screen positive for cocaine Discussed cessation Hepatitis C - patient was approved for Harvoni treatment last year but did not follow-up as outpatient Thrombocytopenia, mild, stable PT 10.7/INR 1.1, no e/o active bleeding standard precautions, Avoid hepatotoxic agents Discussed with patient follow-up with GI as outpatient Constipation, resolved continue on scheduled PeriColace Monitor for BM Insomnia trial of Melatonin Social barriers Patient is homeless and has no payor source- may have VA benefits as he was honorably discharged from the [employer]. DW case management. CM assisting with discharge planning DVT prophylaxis Heparin Code Status: Full Discussed Condition With: patient, nursing staff, Dr. Arvizu Discharge Planning: Patient is unsafe discharge. Needs ongoing HD treatment. He is homeless and has no payor source. May have VA benefits. Discharge pending Nephrology clearance. (1) Acute renal failure Qualifiers: Acute renal failure type: unspecified Qualified Code(s): N17.9 - Acute kidney failure, unspecified
--- NOTE | 2018-03-26 11:03 | P.PNVS ---
Subjective Post Op Day #: 1 Procedure: LEFT brachiobasilic AVF (1st stage) Subjective/Hospital Course: 52/M with a PMH of ESRD recently started HD Pt S/P LEFT brachiobasilic AVF (1st stage) POD 1 Pt w/o hand hand Palpable L radial pulse 2+ + thrill near AVF Pt endorsed mild post operative incisional pain Incision intact w/o erythema, swelling or drainage Objective Vital Signs / I&O: Vital Signs 03/25/18 12:00 03/25/18 14:42 03/25/18 14:45 Temperature 97.8 F Pulse Rate 71 62 65 Respiratory Rate 16 16 Blood Pressure 109/66 109/66 Pulse Oximetry 99 95 03/25/18 15:00 03/25/18 15:15 03/25/18 16:00 Temperature 97.4 F L 97.5 F L Pulse Rate 64 63 64 Respiratory Rate 16 16 18 Blood Pressure 118/72 113/63 118/71 Pulse Oximetry 95 93 L 96 03/25/18 20:00 03/26/18 00:00 03/26/18 01:34 Temperature 98 F 97.7 F Pulse Rate 75 73 75 Respiratory Rate 18 17 Blood Pressure 120/60 129/70 Pulse Oximetry 96 95 03/26/18 03:40 03/26/18 04:00 03/26/18 08:00 Temperature 98 F 98.0 F Pulse Rate 62 75 70 Respiratory Rate 16 17 Blood Pressure 115/63 152/81 H Pulse Oximetry 99 97 Intake & Output 03/25/18 03/26/18 03/26/18 18:59 06:59 18:59 Intake Total 650 / 650 1775 / 1775 600 / 600 Output Total 410 / 410 1000 / 1000 Balance 240 / 240 775 / 775 600 / 600 Weight 62 kg Intake: Oral 1775 / 1775 600 / 600 Anesthesia Amount 650 / 650 Output: Urine 400 / 400 1000 / 1000 Estimated Blood Loss Other: # Voids 2 1 3 Date of Last Bowel Movement 03/23/18 03/24/18 03/24/18 # Bowel Movements 1 0 Exam: GENERAL: 52/M A&OX3, NAD SKIN: Warm and dry. Incision to Left arm well approximated intact w/o R/D/S MUSCULOSKELETAL: No cyanosis, or edema. Pt w/o hand pain + thrill Palpable R/L radial pulses (2+) UE warm w/ motor intact Laboratory Results - last 24 hr 03/26/18 07:29 Sodium 137 Potassium 4.7 Chloride 101 Carbon Dioxide 22.8 Anion Gap 13 BUN 87 H Creatinine 7.45 H Estimated GFR 8 L Random Glucose 116 H Calcium 8.4 L Assessment and Plan - Plan 52/M recently started HD (T/T/S) via right sided chest catheter Pt s/p LEFT brachiobasilic AVF (1st stage) Doing well with mild post operative incisional pain Pt w/o hand pain palpable distal pulses and thrill Plan Pt clear for d/c from a vascular standpoint Will arrange out pt f/u in our out pt clinic Pt aware of plan Sangita Carmen NP [facility]/[place] [phone]
[2018-03-26] MEDS: Heparin 10,000 UNITS/10 ML Vial (for IV use) OTHER PRN (11:11)
[2018-03-26] MEDS: Calcitriol 0.25 MCG Capsule PO SCH (13:05)
[2018-03-26] MEDS: Heparin - SQ 10,000 UNITS/ML Vial SQ SCH ×2 (13:05→23:08)
[2018-03-27] MEDS: Senna/Docusate Sodium 8.6/50 MG Tablet PO SCH ×2 (10:24→21:01)
[2018-03-27] MEDS: Calcitriol 0.25 MCG Capsule PO SCH (10:24)
[2018-03-27] MEDS: amLODIPine 10 MG Tablet PO SCH (10:25)
[2018-03-27] MEDS: Calcium Acetate 667 MG Capsule PO SCH ×3 (10:25→18:32)
[2018-03-27] MEDS: Heparin - SQ 10,000 UNITS/ML Vial SQ SCH ×2 (10:25→21:01)
--- NOTE | 2018-03-27 12:26 | P.PNNP ---
Subjective Interval history: Dialyzed yesterday. No new issues. Still without payor source. <Sydnee Morrison - Last Filed: 03/27/18 12:24> Physical Exam Vital signs: Vital Signs 03/26/18 16:00 03/26/18 20:00 03/26/18 21:40 Temperature 98.6 F 98.4 F Pulse Rate 73 68 75 Respiratory Rate 20 16 Blood Pressure 107/60 110/61 Pulse Oximetry 96 96 03/27/18 00:45 03/27/18 03:50 03/27/18 08:00 Temperature 97.8 F 98 F 98.2 F Pulse Rate 80 67 74 Respiratory Rate 16 16 20 Blood Pressure 115/64 130/70 135/82 Pulse Oximetry 97 97 95 Intake & Output 03/26/18 03/27/18 03/27/18 18:59 06:59 18:59 Intake Total 600 / 600 2670 / 2670 Output Total 2004 2400 / 2400 Balance -1405 / -1405 270 / 270 Weight 62 kg Intake: Oral 600 / 600 2670 / 2670 Output: Urine 3 / 3 400 / 400 Stool 2 / 2 Hemodialysis Amount 1999 Other: # Voids 3 2 1 Date of Last Bowel Movement 03/26/18 03/26/18 # Bowel Movements 0 - Constitutional no acute distress, thin, chronically ill appearing, disheveled - Routine HEENT Exam Head: Present: normocephalic, atraumatic - Routine Neck Exam Present: supple - Routine Respiratory Exam Present: CTA bilaterally. Absent: accessory muscle use - Routine Cardiovascular Exam Present: RRR, S1, S2 - Routine Abdominal Exam Present: soft, normoactive bowel sounds - Routine Extremities Exam Present: full ROM, pulses intact, AV fistula, vascular access. Absent: edema - Routine Skin Exam Present: intact, warm Comments: surgical incision healing. - Routine Neurological Exam Present: alert, oriented X3, CN II-XII intact - Detailed Neurological Exam: Coma Scale Eye Opening: Spontaneous Verbal Response: Oriented Motor Response: Obey commands Thaddeus Coma Scale Total: 15 - Routine Psychiatric Exam Present: normal affect, normal thought process <Sydnee Morrison - Last Filed: 03/27/18 12:24> Vital signs: Vital Signs 03/26/18 20:00 03/26/18 21:40 03/27/18 00:45 Temperature 98.4 F 97.8 F Pulse Rate 68 75 80 Respiratory Rate 16 16 Blood Pressure 110/61 115/64 Pulse Oximetry 96 97 03/27/18 03:50 03/27/18 08:00 03/27/18 12:00 Temperature 98 F 98.2 F 98.3 F Pulse Rate 67 74 73 Respiratory Rate 16 20 20 Blood Pressure 130/70 135/82 110/58 L Pulse Oximetry 97 95 95 03/27/18 16:00 Temperature Pulse Rate 73 Respiratory Rate Blood Pressure Pulse Oximetry Intake & Output 03/26/18 03/27/18 03/27/18 18:59 06:59 18:59 Intake Total 600 / 600 2670 / 2670 Output Total 2004 2400 / 2400 Balance -1405 / -1405 270 / 270 Weight 62 kg Intake: Oral 600 / 600 2670 / 2670 Output: Urine 3 / 3 400 / 400 Stool 2 / 2 Hemodialysis Amount 1999 Other: # Voids 3 2 1 Date of Last Bowel Movement 03/26/18 03/26/18 # Bowel Movements 0 <David Smith - Last Filed: 03/27/18 17:47> Assessment and Plan - Assessment (1) ESRD (end stage renal disease) Code(s): N18.6 - End stage renal disease Status: Acute Plan: Prior biopsy proven Hepatitis C related MPGN. He was able to come off dialysis in 2013. In 2015 his Creatinine was 2.3. s/p renal biopsy here. He has reached ESRD. HD initiated 03/13. Continue dialysis support TTS. He is non oliguric, on Bumex once daily. s/p PermCath placement 03/13. S/P AVF creation 03/25. On a high protein, low K diet. Obtain labs intermittently. Most recent were reviewed. He is homeless and uninsured. Will need these issues addressed for outpatient HD plans. He will need to enter the transitional program at [facility], but will need to have a residence with an address prior to being accepted. Appreciate CM assistance. Have asked the pt to look into snf or custodial house. He is also a [place] , CM was asked to look into possible benefits. (2) Secondary hyperparathyroidism of renal origin Code(s): N25.81 - Secondary hyperparathyroidism of renal origin Status: Acute Plan: With hypocalcemia On vitamin D and calcitriol. On calcium acetate with meals for metabolic bone disorder. (3) HTN (hypertension) Code(s): I10 - Essential (primary) hypertension Status: Acute Plan: On Amlodipine, Bumex, and Hydralazine. PRN clonidine is ordered. Fluid removal as needed with dialysis. <Sydnee Morrison - Last Filed: 03/27/18 12:24> - Assessment (1) ESRD (end stage renal disease) Code(s): N18.6 - End stage renal disease Status: Acute (2) Secondary hyperparathyroidism of renal origin Code(s): N25.81 - Secondary hyperparathyroidism of renal origin Status: Acute (3) HTN (hypertension) Code(s): I10 - Essential (primary) hypertension Status: Acute - Attending Attestation patient was seen and examined. Agree with above assessment and plan. <David Smith - Last Filed: 03/27/18 17:47>
--- NOTE | 2018-03-27 14:29 | P.PNIM ---
Subjective Interval history: No overnight events, status post dialysis yesterday. Denies any complaints. No chest pain or shortness of breath. Physical Exam Vital signs: Vital Signs 03/26/18 16:00 03/26/18 20:00 03/26/18 21:40 Temperature 98.6 F 98.4 F Pulse Rate 73 68 75 Respiratory Rate 20 16 Blood Pressure 107/60 110/61 Pulse Oximetry 96 96 03/27/18 00:45 03/27/18 03:50 03/27/18 08:00 Temperature 97.8 F 98 F 98.2 F Pulse Rate 80 67 74 Respiratory Rate 16 16 20 Blood Pressure 115/64 130/70 135/82 Pulse Oximetry 97 97 95 03/27/18 12:00 Temperature 98.3 F Pulse Rate 70 Respiratory Rate 20 Blood Pressure 110/58 L Pulse Oximetry 95 Intake & Output 03/26/18 03/27/18 03/27/18 18:59 06:59 18:59 Intake Total 600 / 600 2670 / 2670 Output Total 2004 2400 / 2400 Balance -1405 / -1405 270 / 270 Weight 62 kg Intake: Oral 600 / 600 2670 / 2670 Output: Urine / 400 / 400 Stool 2 / 2 Hemodialysis Amount 1999 Other: # Voids 3 2 1 Date of Last Bowel Movement 03/26/18 03/26/18 # Bowel Movements 0 Narrative: GENERAL: Not in distress NECK: Supple, trachea midline. No lymphadenopathy. RIGHT SIDE PERMACATH IN PLACE FOR HD CARDIOVASCULAR: Regular rate and rhythm without murmurs, gallops, or rubs. RESPIRATORY: No accessory muscle use. Breath sounds equal bilaterally. Clear to auscultation bilaterally. GASTROINTESTINAL: Abdomen soft, non-tender, nondistended. +BS. MUSCULOSKELETAL: No cyanosis or edema noted. No obvious deformities. Left aVF , good bruit. NEURO: Awake and alert, oriented 3. CN II-XII grossly intact. Able to move all extremities spontaneously. No focal neurological deficits. Normal speech. Results - Labs CBC & Chem 7: 03/20/18 06:46 03/26/18 07:29 - Procedures PERMACATH 03-13 BY IR RENAL BIOPSY 03-14 Assessment and Plan - Assessment (1) Acute renal failure Code(s): N17.9 - Acute kidney failure, unspecified Status: Acute (2) Hypocalcemia Code(s): E83.51 - Hypocalcemia Status: Acute (3) HTN (hypertension) Code(s): I10 - Essential (primary) hypertension Status: Acute (4) Secondary hyperparathyroidism of renal origin Code(s): N25.81 - Secondary hyperparathyroidism of renal origin Status: Acute - Plan 52-year-old male admitted secondary to acute renal failure Acute renal failure Prior biopsy proven MPGN secondary to Hep C, likely relapsed Likely ESRD Nephrology following. Continue on HD schedule TTS per Nephrology. Vas-Cath placement 03-13, AV fistula inserted 03/25/2018 Avoid nephrotoxins , Continue on Phoslo Hypocalcemia, resolved Vitamin D deficiency continue on Vitamin D and calcitriol Follow calcium levels Hypertension, overall controlled Continue on amlodipine, Bumex and hydralazine. Clonidine as needed Cocaine abuse Urine drug screen positive for cocaine Discussed cessation Hepatitis C - patient was approved for Harvoni treatment last year but did not follow-up as outpatient Thrombocytopenia, mild, stable PT 10.7/INR 1.1, no e/o active bleeding standard precautions, Avoid hepatotoxic agents Discussed with patient follow-up with GI as outpatient Constipation, resolved continue on scheduled PeriColace Monitor for BM Insomnia trial of Melatonin Social barriers Patient is homeless and has no payor source- may have VA benefits as he was honorably discharged from the [place]. DW case management. CM assisting with discharge planning DVT prophylaxis Heparin Code Status: Full Discharge Planning: Patient is unsafe discharge. Needs ongoing HD treatment. He is homeless and has no payor source. (1) Acute renal failure Qualifiers: Acute renal failure type: unspecified Qualified Code(s): N17.9 - Acute kidney failure, unspecified
--- NOTE | 2018-03-28 09:48 | P.PNNP ---
Subjective Interval history: patient was seen during dialysis. He reports that he is doing well. Physical Exam Vital signs: Vital Signs 03/27/18 12:00 03/27/18 16:00 03/27/18 20:00 Temperature 98.3 F 98.1 F 97.3 F L Pulse Rate 73 73 76 Respiratory Rate 20 20 18 Blood Pressure 110/58 L 117/55 L 126/76 Pulse Oximetry 95 95 95 03/27/18 23:55 03/28/18 00:00 03/28/18 04:00 Temperature 98.1 F 98.3 F Pulse Rate 76 69 72 Respiratory Rate 18 18 Blood Pressure 120/65 135/80 Pulse Oximetry 95 97 Intake & Output 03/27/18 03/28/18 03/28/18 18:59 06:59 18:59 Intake Total 1100 / 1100 Balance 1100 / 1100 Intake: Oral 1100 / 1100 Other: # Voids 1 2 Date of Last Bowel Movement 03/26/18 # Bowel Movements 1 - Constitutional no acute distress - Routine HEENT Exam Head: Present: normocephalic Eye: Present: EOMI ENT: Present: mucous membranes moist - Routine Neck Exam Present: supple, full ROM. Absent: JVD, lymphadenopathy - Routine Respiratory Exam Present: CTA bilaterally - Routine Cardiovascular Exam Present: RRR, S1, S2 - Routine Abdominal Exam Present: soft, normoactive bowel sounds - Routine Skin Exam Present: intact - Routine Neurological Exam Present: alert, oriented X3, CN II-XII intact - Routine Psychiatric Exam Present: normal affect, normal thought process Assessment and Plan - Assessment (1) ESRD (end stage renal disease) Code(s): N18.6 - End stage renal disease Status: Acute Plan: Prior biopsy proven Hepatitis C related MPGN. He was able to come off dialysis in 2013. In 2016 his Creatinine was 2.3. s/p renal biopsy here. He has reached ESRD. HD initiated 03/13. Continue dialysis support TTS. He is non oliguric, on Bumex once daily. s/p PermCath placement 03/13. S/P AVF creation 03/25. On a high protein, low K diet. Obtain labs intermittently. Most recent were reviewed. He is homeless and uninsured. Will need these issues addressed for outpatient HD plans. He will need to enter the transitional program at [facility], but will need to have a residence with an address prior to being accepted. Appreciate CM assistance. Have asked the pt to look into long-term or long-term house. He is also a [place] , CM was asked to look into possible benefits. (2) Secondary hyperparathyroidism of renal origin Code(s): N25.81 - Secondary hyperparathyroidism of renal origin Status: Acute Plan: With hypocalcemia On vitamin D and calcitriol. On calcium acetate with meals for metabolic bone disorder. (3) HTN (hypertension) Code(s): I10 - Essential (primary) hypertension Status: Acute Plan: On Amlodipine, Bumex, and Hydralazine. PRN clonidine is ordered. Fluid removal as needed with dialysis.
[2018-03-28] MEDS: Heparin 10,000 UNITS/10 ML Vial (for IV use) OTHER PRN (12:21)
--- NOTE | 2018-03-28 13:50 | P.PNIM ---
Subjective Interval history: No overnight events, status post dialysis today, no complaints. He says that he can probably stay with a friend. Physical Exam Vital signs: Vital Signs 03/27/18 16:00 03/27/18 20:00 03/27/18 23:55 Temperature 98.1 F 97.3 F L Pulse Rate 73 76 76 Respiratory Rate 20 18 Blood Pressure 117/55 L 126/76 Pulse Oximetry 95 95 03/28/18 00:00 03/28/18 04:00 03/28/18 08:00 Temperature 98.1 F 98.3 F 97.8 F Pulse Rate 69 72 67 Respiratory Rate 18 18 14 Blood Pressure 120/65 135/80 146/87 H Pulse Oximetry 95 97 67 L Intake & Output 03/27/18 03/28/18 03/28/18 18:59 06:59 18:59 Intake Total 1100 / 1100 Output Total 1999 Balance -900 / -900 Intake: Oral 1100 / 1100 Output: Hemodialysis Amount 1999 Other: # Voids 1 2 Date of Last Bowel Movement 03/26/18 03/26/18 # Bowel Movements 1 Narrative: GENERAL: Not in distress CARDIOVASCULAR: Regular rate and rhythm without murmurs, gallops, or rubs. RESPIRATORY: No accessory muscle use. Breath sounds equal bilaterally. Clear to auscultation bilaterally. GASTROINTESTINAL: Abdomen soft, non-tender, nondistended. +BS. MUSCULOSKELETAL: No cyanosis or edema noted. No obvious deformities. Left aVF , good bruit. NEURO: Awake and alert, oriented 3. CN II-XII grossly intact. Able to move all extremities spontaneously. No focal neurological deficits. Normal speech. Results - Labs CBC & Chem 7: 03/20/18 06:46 03/26/18 07:29 - Procedures PERMACATH 03-13 BY IR RENAL BIOPSY 03-14 Assessment and Plan - Assessment (1) Acute renal failure Code(s): N17.9 - Acute kidney failure, unspecified Status: Acute (2) Hypocalcemia Code(s): E83.51 - Hypocalcemia Status: Acute (3) HTN (hypertension) Code(s): I10 - Essential (primary) hypertension Status: Acute (4) Secondary hyperparathyroidism of renal origin Code(s): N25.81 - Secondary hyperparathyroidism of renal origin Status: Acute - Plan 52-year-old male admitted secondary to acute renal failure Acute renal failure Prior biopsy proven MPGN secondary to Hep C, likely relapsed Likely ESRD Nephrology following. Continue on HD schedule TTS per Nephrology. Vas-Cath placement 03-13, AV fistula inserted 03/25/2018 Avoid nephrotoxins , Continue on Phoslo Status post hemodialysis today. Hypocalcemia, resolved Vitamin D deficiency continue on Vitamin D and calcitriol Follow calcium levels Hypertension, overall controlled Continue on amlodipine, Bumex and hydralazine. Clonidine as needed Cocaine abuse Urine drug screen positive for cocaine Discussed cessation Hepatitis C - patient was approved for Harvoni treatment last year but did not follow-up as outpatient Thrombocytopenia, mild, stable PT 10.7/INR 1.1, no e/o active bleeding standard precautions, Avoid hepatotoxic agents Discussed with patient follow-up with GI as outpatient Constipation, resolved continue on scheduled PeriColace Monitor for BM Insomnia trial of Melatonin Social barriers Patient is homeless and has no payor source- may have VA benefits as he was honorably discharged from the [facility]. DW case management. CM assisting with discharge planning DVT prophylaxis Heparin Code Status: Full Discharge Planning: Patient is unsafe discharge. Needs ongoing HD treatment. He is homeless and has no payor source. Also needs and address. (1) Acute renal failure Qualifiers: Acute renal failure type: unspecified Qualified Code(s): N17.9 - Acute kidney failure, unspecified
[2018-03-28] MEDS: Heparin - SQ 10,000 UNITS/ML Vial SQ SCH ×2 (13:59→22:53)
[2018-03-28] MEDS: Calcium Acetate 667 MG Capsule PO SCH ×3 (13:59→18:59)
[2018-03-28] MEDS: Senna/Docusate Sodium 8.6/50 MG Tablet PO SCH ×2 (13:59→22:54)
[2018-03-28] MEDS: amLODIPine 10 MG Tablet PO SCH (14:45)
[2018-03-28] MEDS: Calcitriol 0.25 MCG Capsule PO SCH (14:46)
[2018-03-29] MEDS: amLODIPine 10 MG Tablet PO SCH (08:49)
[2018-03-29] MEDS: Calcitriol 0.25 MCG Capsule PO SCH (08:49)
[2018-03-29] MEDS: Heparin - SQ 10,000 UNITS/ML Vial SQ SCH ×2 (08:49→23:17)
[2018-03-29] MEDS: Calcium Acetate 667 MG Capsule PO SCH ×3 (08:49→18:00)
[2018-03-29] MEDS: Senna/Docusate Sodium 8.6/50 MG Tablet PO SCH ×2 (08:49→23:17)
--- NOTE | 2018-03-29 13:36 | P.PNIM ---
Subjective Interval history: For acute renal failure No overnight events, no fever or chills. Had hemodialysis yesterday. No complaints. Physical Exam Vital signs: Vital Signs 03/28/18 16:00 03/28/18 18:43 03/28/18 20:00 Temperature 98 F 98.1 F Pulse Rate 78 83 Respiratory Rate 20 18 Blood Pressure 122/66 110/63 114/76 Pulse Oximetry 96 96 03/29/18 00:00 03/29/18 04:00 03/29/18 07:40 Temperature 98.0 F 98.3 F 98.3 F Pulse Rate 73 80 71 Respiratory Rate 18 16 Blood Pressure 130/71 135/72 146/77 H Pulse Oximetry 95 95 96 03/29/18 08:25 03/29/18 12:00 Temperature 97.4 F L Pulse Rate 83 71 Respiratory Rate 16 Blood Pressure 118/66 Pulse Oximetry 100 Intake & Output 03/28/18 03/29/18 03/29/18 18:59 06:59 18:59 Intake Total 1100 / 1100 Output Total 2300 / 2300 Balance -1200 / -1200 Intake: Oral 1100 / 1100 Output: Urine 300 / 300 Hemodialysis Amount 1999 Other: # Voids 2 # Incontinent Voids 2 Date of Last Bowel Movement 03/26/18 03/28/18 # Bowel Movements 1 2 Narrative: GENERAL: Not in distress CARDIOVASCULAR: Regular rate and rhythm without murmurs, gallops, or rubs. RESPIRATORY: No accessory muscle use. Breath sounds equal bilaterally. Clear to auscultation bilaterally. GASTROINTESTINAL: Abdomen soft, non-tender, nondistended. +BS. MUSCULOSKELETAL: No cyanosis or edema noted. No obvious deformities. Left aVF , good bruit. NEURO: Awake and alert, oriented 3. No focal neurological deficits. Normal speech. Results - Labs CBC & Chem 7: 03/20/18 06:46 03/26/18 07:29 - Procedures PERMACATH 03-13 BY IR RENAL BIOPSY 03-14 Assessment and Plan - Assessment (1) Acute renal failure Code(s): N17.9 - Acute kidney failure, unspecified Status: Acute (2) Hypocalcemia Code(s): E83.51 - Hypocalcemia Status: Acute (3) HTN (hypertension) Code(s): I10 - Essential (primary) hypertension Status: Acute (4) Secondary hyperparathyroidism of renal origin Code(s): N25.81 - Secondary hyperparathyroidism of renal origin Status: Acute - Plan 52-year-old male admitted secondary to acute renal failure Acute renal failure Prior biopsy proven MPGN secondary to Hep C, likely relapsed Likely ESRD Nephrology following. Continue on HD schedule TTS per Nephrology. Vas-Cath placement 03-13, AV fistula inserted 03/25/2018 Avoid nephrotoxins , Continue on Phoslo Hypocalcemia, resolved Vitamin D deficiency continue on Vitamin D and calcitriol, Hypertension, overall controlled Continue on amlodipine, Bumex and hydralazine. Clonidine as needed Cocaine abuse Urine drug screen positive for cocaine Discussed cessation Hepatitis C - patient was approved for Harvoni treatment last year but did not follow-up as outpatient Thrombocytopenia, mild, stable PT 10.7/INR 1.1, no e/o active bleeding standard precautions, Avoid hepatotoxic agents Discussed with patient follow-up with GI as outpatient Constipation, resolved continue on scheduled PeriColace Monitor for BM Insomnia trial of Melatonin Social barriers Patient is homeless and has no payor source- may have VA benefits as he was honorably discharged from the [facility]. DW case management. CM assisting with discharge planning DVT prophylaxis Heparin Code Status: Full Discharge Planning: Needs ongoing HD treatment. He is homeless and has no payor source. Also needs and address. Still waiting for dialysis chair, discussed with case management. (1) Acute renal failure Qualifiers: Acute renal failure type: unspecified Qualified Code(s): N17.9 - Acute kidney failure, unspecified
--- NOTE | 2018-03-29 13:51 | P.PNNP ---
Subjective Interval history: He is awake and alert. No new issues. <Sydnee Morrison - Last Filed: 03/29/18 13:48> Physical Exam Vital signs: Vital Signs 03/28/18 16:00 03/28/18 18:43 03/28/18 20:00 Temperature 98 F 98.1 F Pulse Rate 78 83 Respiratory Rate 20 18 Blood Pressure 122/66 110/63 114/76 Pulse Oximetry 96 96 03/29/18 00:00 03/29/18 04:00 03/29/18 07:40 Temperature 98.0 F 98.3 F 98.3 F Pulse Rate 73 80 71 Respiratory Rate 18 16 Blood Pressure 130/71 135/72 146/77 H Pulse Oximetry 95 95 96 03/29/18 08:25 03/29/18 12:00 Temperature 97.4 F L Pulse Rate 83 71 Respiratory Rate 16 Blood Pressure 118/66 Pulse Oximetry 100 Intake & Output 03/28/18 03/29/18 03/29/18 18:59 06:59 18:59 Intake Total 1100 / 1100 Output Total 2300 / 2300 Balance -1200 / -1200 Intake: Oral 1100 / 1100 Output: Urine 300 / 300 Hemodialysis Amount 1999 / 1999 Other: # Voids 2 # Incontinent Voids 2 Date of Last Bowel Movement 03/26/18 03/28/18 # Bowel Movements 1 2 - Constitutional no acute distress, thin, chronically ill appearing, disheveled, cooperative - Routine HEENT Exam Head: Present: normocephalic - Routine Neck Exam Present: supple, full ROM - Routine Respiratory Exam Present: CTA bilaterally. Absent: accessory muscle use - Routine Cardiovascular Exam Present: RRR, S1, S2 - Routine Abdominal Exam Present: soft, normoactive bowel sounds - Routine Extremities Exam Present: full ROM, pulses intact. Absent: edema - Routine Skin Exam Present: intact, dry, warm - Routine Neurological Exam Present: alert, oriented X3, CN II-XII intact - Detailed Neurological Exam: Coma Scale Eye Opening: Spontaneous Verbal Response: Oriented Motor Response: Obey commands Thaddeus Coma Scale Total: 15 - Routine Psychiatric Exam Present: normal affect, normal thought process <Sydnee Morrison - Last Filed: 03/29/18 13:48> Vital signs: Vital Signs 03/28/18 16:00 03/28/18 18:43 03/28/18 20:00 Temperature 98 F 98.1 F Pulse Rate 78 83 Respiratory Rate 20 18 Blood Pressure 122/66 110/63 114/76 Pulse Oximetry 96 96 03/29/18 00:00 03/29/18 04:00 03/29/18 07:40 Temperature 98.0 F 98.3 F 98.3 F Pulse Rate 73 80 71 Respiratory Rate 18 16 Blood Pressure 130/71 135/72 146/77 H Pulse Oximetry 95 95 96 03/29/18 08:25 03/29/18 12:00 Temperature 97.4 F L Pulse Rate 83 71 Respiratory Rate 16 Blood Pressure 118/66 Pulse Oximetry 100 Intake & Output 03/28/18 03/29/18 03/29/18 18:59 06:59 18:59 Intake Total 1100 / 1100 Output Total 2300 / 2300 Balance -1200 / -1200 Intake: Oral 1100 / 1100 Output: Urine 300 / 300 Hemodialysis Amount 1999 / 1999 Other: # Voids 2 # Incontinent Voids 2 Date of Last Bowel Movement 03/26/18 03/28/18 # Bowel Movements 1 2 <David Smith - Last Filed: 03/29/18 14:54> Assessment and Plan - Assessment (1) ESRD (end stage renal disease) Code(s): N18.6 - End stage renal disease Status: Acute Plan: Prior biopsy proven Hepatitis C related MPGN. He was able to come off dialysis in 2013. In 2016 his Creatinine was 2.3. s/p renal biopsy here. He has reached ESRD. PermCath placement and HD initiated 03/13. Continue dialysis support TTS. He is non oliguric, on Bumex once daily. S/P AVF creation 03/25. Will need to follow with vascular. On a high protein, low K diet. Obtain labs intermittently. Most recent were reviewed. He is homeless and uninsured. Will need these issues addressed for outpatient HD plans. He will need to enter the transitional program at [facility], but will need to have a residence with an address prior to being accepted. Appreciate CM assistance. The patient may have found a place to stay. He is also a [place] , CM was asked to look into possible benefits. (2) Secondary hyperparathyroidism of renal origin Code(s): N25.81 - Secondary hyperparathyroidism of renal origin Status: Acute Plan: With hypocalcemia On vitamin D and calcitriol. On calcium acetate with meals for metabolic bone disorder. (3) HTN (hypertension) Code(s): I10 - Essential (primary) hypertension Status: Acute Plan: On Amlodipine, Bumex, and Hydralazine. PRN clonidine is ordered. Fluid removal as needed with dialysis. <Sydnee Morrison - Last Filed: 03/29/18 13:48> - Assessment (1) ESRD (end stage renal disease) Code(s): N18.6 - End stage renal disease Status: Acute (2) Secondary hyperparathyroidism of renal origin Code(s): N25.81 - Secondary hyperparathyroidism of renal origin Status: Acute (3) HTN (hypertension) Code(s): I10 - Essential (primary) hypertension Status: Acute - Attending Attestation patient was seen and examined. Agree with above assessment and plan. <David Smith - Last Filed: 03/29/18 14:54>
[2018-03-30] MEDS: amLODIPine 10 MG Tablet PO SCH (09:14)
[2018-03-30] MEDS: Heparin - SQ 10,000 UNITS/ML Vial SQ SCH ×2 (09:14→21:51)
[2018-03-30] MEDS: Senna/Docusate Sodium 8.6/50 MG Tablet PO SCH (09:14)
[2018-03-30] MEDS: Calcium Acetate 667 MG Capsule PO SCH ×4 (09:15→18:30)
[2018-03-30] MEDS: Calcitriol 0.25 MCG Capsule PO SCH (09:15)
--- NOTE | 2018-03-30 10:09 | P.PNNP ---
Subjective Interval history: patient was seen during dialysis. On 2K, UF goal is about 2 liters. His PermCath is not working well, Cathflo(Activase) to be instilled. Physical Exam Vital signs: Vital Signs 03/29/18 12:00 03/29/18 16:00 03/29/18 16:25 Temperature 97.4 F L 98.0 F Pulse Rate 71 78 76 Respiratory Rate 16 16 Blood Pressure 118/66 149/67 H Pulse Oximetry 100 95 03/29/18 20:00 03/30/18 00:00 03/30/18 04:00 Temperature 98.4 F 98.6 F 97.7 F Pulse Rate 73 72 75 Respiratory Rate 18 18 18 Blood Pressure 134/77 157/90 H 136/82 Pulse Oximetry 100 96 96 03/30/18 08:00 Temperature 97.6 F Pulse Rate 67 Respiratory Rate 24 Blood Pressure 159/98 H Pulse Oximetry 97 Intake & Output 03/29/18 03/30/18 03/30/18 18:59 06:59 18:59 Intake Total 1000 / 1000 Output Total Balance 999 / 999 Weight 62.1 kg Intake: Oral 1000 / 1000 Output: Stool Other: # Voids 4 # Incontinent Voids 2 Date of Last Bowel Movement 03/29/18 # Bowel Movements 1 - Constitutional no acute distress - Routine HEENT Exam Head: Present: normocephalic, atraumatic Eye: Present: EOMI, PERRL - Routine Neck Exam Present: supple, full ROM. Absent: JVD, carotid bruit, lymphadenopathy - Routine Respiratory Exam Present: CTA bilaterally - Routine Cardiovascular Exam Present: RRR, S1, S2 - Routine Abdominal Exam Present: soft - Routine Extremities Exam Absent: edema - Routine Skin Exam Present: intact - Routine Neurological Exam Present: alert, oriented X3 Assessment and Plan - Assessment (1) ESRD (end stage renal disease) Code(s): N18.6 - End stage renal disease Status: Acute Plan: Prior biopsy proven Hepatitis C related MPGN. He was able to come off dialysis in 2013. In 2015 his Creatinine was 2.3. s/p renal biopsy here. He has reached ESRD. PermCath placement and HD initiated 03/13. Continue dialysis support TTS. He is non oliguric, on Bumex once daily. S/P AVF creation 03/25. Will need to follow with vascular. On a high protein, low K diet. Obtain labs intermittently. Most recent were reviewed. He is homeless and uninsured. Will need these issues addressed for outpatient HD plans. He will need to enter the transitional program at [facility], but will need to have a residence with an address prior to being accepted. Appreciate CM assistance. The patient may have found a place to stay. He is also a [place] , CM was asked to look into possible benefits. (2) Secondary hyperparathyroidism of renal origin Code(s): N25.81 - Secondary hyperparathyroidism of renal origin Status: Acute Plan: With hypocalcemia On vitamin D and calcitriol. On calcium acetate with meals for metabolic bone disorder. (3) HTN (hypertension) Code(s): I10 - Essential (primary) hypertension Status: Acute Plan: On Amlodipine, Bumex, and Hydralazine. PRN clonidine is ordered. Fluid removal as needed with dialysis.
[2018-03-30] MEDS ORDERED: Cathflo Activase Inj 2 MG Vial I-CATHETER ONE (11:15)
--- NOTE | 2018-03-30 13:25 | P.PNIM ---
Subjective Interval history: s/p HD today, just ate lunch, no complaints, afebrile Physical Exam Vital signs: Vital Signs 03/29/18 16:00 03/29/18 16:25 03/29/18 20:00 Temperature 98.0 F 98.4 F Pulse Rate 78 76 73 Respiratory Rate 16 18 Blood Pressure 149/67 H 134/77 Pulse Oximetry 95 100 03/30/18 00:00 03/30/18 04:00 03/30/18 08:00 Temperature 98.6 F 97.7 F 97.6 F Pulse Rate 72 75 67 Respiratory Rate 18 18 24 Blood Pressure 157/90 H 136/82 159/98 H Pulse Oximetry 96 96 97 03/30/18 10:13 03/30/18 12:00 03/30/18 12:11 Temperature 97.6 F 98.5 F Pulse Rate 71 65 73 Respiratory Rate 24 18 Blood Pressure 155/98 H 139/80 Pulse Oximetry 97 98 Intake & Output 03/29/18 03/30/18 03/30/18 18:59 06:59 18:59 Intake Total 1000 / 1000 Output Total 1999 Balance 999 / 999 -1999 Weight 62.1 kg Intake: Oral 1000 / 1000 Output: Stool Hemodialysis Amount 1999 Other: # Voids 4 # Incontinent Voids 2 Date of Last Bowel Movement 03/29/18 # Bowel Movements 1 Narrative: GENERAL: Not in distress CARDIOVASCULAR: Regular rate and rhythm without murmurs, gallops, or rubs. (+) permcath in place, clean RESPIRATORY: No accessory muscle use. Breath sounds equal bilaterally. Clear to auscultation bilaterally. GASTROINTESTINAL: Abdomen soft, non-tender, nondistended. +BS. MUSCULOSKELETAL: No cyanosis or edema noted. No obvious deformities. Left aVF , good bruit. NEURO: Awake and alert, oriented 3. No focal neurological deficits. Normal speech. Results - Labs CBC & Chem 7: 03/20/18 06:46 03/26/18 07:29 - Procedures PERMACATH 03-13 BY IR RENAL BIOPSY 03-14 Assessment and Plan - Assessment (1) Acute renal failure Code(s): N17.9 - Acute kidney failure, unspecified Status: Acute (2) Hypocalcemia Code(s): E83.51 - Hypocalcemia Status: Acute (3) HTN (hypertension) Code(s): I10 - Essential (primary) hypertension Status: Acute (4) Secondary hyperparathyroidism of renal origin Code(s): N25.81 - Secondary hyperparathyroidism of renal origin Status: Acute - Plan 52-year-old male admitted secondary to acute renal failure Acute renal failure Prior biopsy proven MPGN secondary to Hep C, likely relapsed Likely ESRD Nephrology following. Continue on HD schedule TTS per Nephrology. Vas-Cath placement 03-13, AV fistula inserted 03/25/2018 Avoid nephrotoxins , Continue on Phoslo Hypocalcemia, resolved Vitamin D deficiency continue on Vitamin D and calcitriol Hypertension, overall controlled Continue on amlodipine, Bumex and hydralazine. Clonidine as needed Cocaine abuse Urine drug screen positive for cocaine Discussed cessation Hepatitis C - patient was approved for Harvoni treatment last year but did not follow-up as outpatient Thrombocytopenia, mild, stable PT 10.7/INR 1.1, no e/o active bleeding standard precautions, Avoid hepatotoxic agents Discussed with patient follow-up with GI as outpatient Constipation, resolved continue on scheduled PeriColace Monitor for BM Insomnia trial of Melatonin DVT prophylaxis Heparin Code Status: Full Discharge Planning: Needs ongoing HD treatment. He is homeless and has no payor source. Also needs address. Still waiting for dialysis chair, discussed with case management. (1) Acute renal failure Qualifiers: Acute renal failure type: unspecified Qualified Code(s): N17.9 - Acute kidney failure, unspecified
[2018-03-31] MEDS: Senna/Docusate Sodium 8.6/50 MG Tablet PO SCH ×2 (01:23→09:24)
--- NOTE | 2018-03-31 09:01 | P.PNIM ---
Subjective Interval history: Pt seen and examined for f/u HCV MPGN leading to ESRD. He is in good spirits. No acute concerns except two episodes of nonbloody diarrhea overnight. No further episodes since then. Marjan abdominal pain, nausea, or vomiting. Otherwise no complaints. No CP or SOB. Tolerating PO. Had HD yesterday. Producing urine. States he collected 400 mL yesterday but when he was having diarrhea he did not collect his urine in the urinal. Pt reports he was able to figure out a place to live when he is discharged. Has a name and number for the contact and planning on talking to manager case today. Case management still working on dialysis chair. Physical Exam Vital signs: Vital Signs 03/30/18 10:13 03/30/18 12:00 03/30/18 12:11 Temperature 97.6 F 98.5 F Pulse Rate 71 75 73 Respiratory Rate 24 18 Blood Pressure 155/98 H 139/80 Pulse Oximetry 97 98 03/30/18 16:00 03/30/18 20:00 03/31/18 00:00 Temperature 97.8 F 98.7 F 98.2 F Pulse Rate 77 76 68 Respiratory Rate 22 18 18 Blood Pressure 117/59 L 126/74 137/80 Pulse Oximetry 95 95 97 Intake & Output 03/30/18 03/31/18 03/31/18 18:59 06:59 18:59 Output Total 1999 Balance -1999 -1999 Output: Hemodialysis Amount 1999 Other: # Voids 3 Date of Last Bowel Movement 03/29/18 # Bowel Movements 1 Narrative: GENERAL: WN, WD pleasant male resting in bed in NAD. SKIN: Warm and dry. Vascath R chest no surrounding erythema. NECK: Supple no tender LAD or JVD. HEART: RRR no m/r/g. LUNGS: CTAB without wheezes or crackles. ABDOMEN: +BS, soft, NT, ND. EXTREMITIES: No LE edema. AV fistula L wrist. NEURO: Awake and alert. Nonfocal. PSYCH: Appropriate mood and affect. Results - Labs CBC & Chem 7: 03/20/18 06:46 03/26/18 07:29 - Procedures PERMACATH 03-13 BY IR RENAL BIOPSY 03-14 Assessment and Plan - Assessment (1) Acute renal failure Code(s): N17.9 - Acute kidney failure, unspecified Status: Acute (2) Hypocalcemia Code(s): E83.51 - Hypocalcemia Status: Resolved (3) HTN (hypertension) Code(s): I10 - Essential (primary) hypertension Status: Chronic (4) Secondary hyperparathyroidism of renal origin Code(s): N25.81 - Secondary hyperparathyroidism of renal origin Status: Chronic - Plan 52-year-old male with HTN and hepatitic C associated MGNP admited 03/12 for acute renal failure requiring diaysis. 1. ARF/ESRD - Prior bx with proven MPGN secondary to HCV - Pt now likely in ESRD with secondary hyperparathyroidism - Nephrology following - HD TThS - VasCath placed 03/13 - AV fistula 03/25 - Avoid nephrotoxins - Continue Phoslo and calcitriol - Continue Bumex - Monitor renal function 2. HTN - Stable - Continue Norvasc, Bumex, and hydralazine - Clonidine PRN 3. Cocaine abuse - UDS + for cocaine - Prior counseled on cessation 4. Hepatitis C - Patient was approved for Harvoni treatment last year but did not follow-up as outpatient - Avoid hepatotoxic agents - Periodically monitor LFTs 5. 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 He is homeless and has no payor source. Case management assisting with D/C needs. (1) Acute renal failure Qualifiers: Acute renal failure type: unspecified Qualified Code(s): N17.9 - Acute kidney failure, unspecified (3) HTN (hypertension) Qualifiers: Hypertension type: renovascular hypertension Qualified Code(s): I15.0 - Renovascular hypertension
[2018-03-31] MEDS: Heparin - SQ 10,000 UNITS/ML Vial SQ SCH ×2 (09:25→22:20)
[2018-03-31] MEDS: Calcitriol 0.25 MCG Capsule PO SCH (09:25)
[2018-03-31] MEDS: Calcium Acetate 667 MG Capsule PO SCH ×3 (09:25→18:07)
[2018-03-31] MEDS: amLODIPine 10 MG Tablet PO SCH (09:25)
[2018-03-31] MEDS: Melatonin 5 MG Tablet PO PRN (22:21)
[2018-04-01] MEDS: Senna/Docusate Sodium 8.6/50 MG Tablet PO SCH ×3 (00:58→23:05)
[2018-04-01] MEDS: Heparin - SQ 10,000 UNITS/ML Vial SQ SCH ×2 (09:00→23:05)
[2018-04-01] MEDS: Calcitriol 0.25 MCG Capsule PO SCH (09:01)
[2018-04-01] MEDS: amLODIPine 10 MG Tablet PO SCH (09:02)
[2018-04-01] MEDS: Calcium Acetate 667 MG Capsule PO SCH ×3 (09:02→17:41)
[2018-04-01 09:29] LABS: Hematocrit 32.3 % (39.0-51.0); Hemoglobin 10.9 gm/dL (13.0-17.0); Mean Corpuscular HGB Conc 33.8 % (32.0-36.0); Mean Corpuscular Hemoglobin 29.2 pg (27.0-34.0); Mean Corpuscular Volume 86.2 fL (80.0-100.0); Mean Platelet Volume 8.7 fL (7.0-11.0); Platelet Count 101 th/mm3 (150-450); Red Blood Count 3.74 mil/mm3 (4.50-5.90); White Blood Count 3.7 th/mm3 (4.0-11.0)
[2018-04-01 09:54] LABS: Calcium 8.6 mg/dL (8.5-10.1); Carbon Dioxide 23.5 meq/L (21.0-32.0); Potassium 5.1 meq/L (3.5-5.1)
--- NOTE | 2018-04-01 11:40 | P.PNIM ---
Subjective Interval history: Pt seen and examined. AFVSS. No acute events overnight. Reports he is feeling well. Denies CP or SOB. Anxious to be able to get out of the hospital. Tolerating HD, waiting for a chair as an outpatient. Physical Exam Vital signs: Vital Signs 03/31/18 12:00 03/31/18 13:27 03/31/18 16:00 Temperature 98.4 F 98.5 F Pulse Rate 81 75 75 Respiratory Rate 22 23 Blood Pressure 146/74 H 124/76 Pulse Oximetry 98 95 03/31/18 20:00 03/31/18 23:58 04/01/18 00:00 Temperature 98 F 98.1 F Pulse Rate 77 71 72 Respiratory Rate 18 18 Blood Pressure 129/66 127/64 Pulse Oximetry 95 95 04/01/18 04:00 04/01/18 08:00 Temperature 98 F 97.4 F L Pulse Rate 65 66 Respiratory Rate 18 21 Blood Pressure 122/69 151/85 H Pulse Oximetry 95 95 Intake & Output 03/31/18 04/01/18 04/01/18 18:59 06:59 18:59 Intake Total 1300 / 1300 960 / 960 Output Total 1300 / 1300 Balance 1300 / 1300 -340 / -340 Intake: Oral 1300 / 1300 960 / 960 Output: Urine 1300 / 1300 Other: # Voids 500 Date of Last Bowel Movement 03/29/18 # Bowel Movements 1 Narrative: GENERAL: WN, WD pleasant male resting in bed in NAD. SKIN: Warm and dry. Vascath R chest no surrounding erythema. NECK: Supple no tender LAD or JVD. HEART: RRR no m/r/g. LUNGS: CTAB without wheezes or crackles. ABDOMEN: +BS, soft, NT, ND. EXTREMITIES: No LE edema. AV fistula L wrist. NEURO: Awake and alert. Nonfocal. PSYCH: Appropriate mood and affect. Results - Labs CBC & Chem 7: 04/01/18 07:20 04/01/18 07:20 Laboratory Results - last 24 hr 04/01/18 04/01/18 07:20 07:20 WBC 3.7 L RBC 3.74 L Hgb 10.9 L Hct 32.3 L MCV 86.2 MCH 29.2 MCHC 33.8 RDW 14.0 Plt Count 101 L MPV 8.7 Sodium 138 Potassium 5.1 Chloride 102 Carbon Dioxide 23.5 Anion Gap 13 BUN 65 H Creatinine 6.07 H Estimated GFR 10 L Random Glucose 82 Calcium 8.6 - Procedures PERMACATH 03-13 BY IR RENAL BIOPSY 03-14 Assessment and Plan - Assessment (1) Acute renal failure Code(s): N17.9 - Acute kidney failure, unspecified Status: Acute (2) Hypocalcemia Code(s): E83.51 - Hypocalcemia Status: Resolved (3) HTN (hypertension) Code(s): I10 - Essential (primary) hypertension Status: Chronic (4) Secondary hyperparathyroidism of renal origin Code(s): N25.81 - Secondary hyperparathyroidism of renal origin Status: Chronic - Plan 52-year-old male with HTN and hepatitic C associated MGNP admited 03/12 for acute renal failure requiring diaysis. 1. ARF/ESRD - Prior bx with proven MPGN secondary to HCV - Pt now likely in ESRD with secondary hyperparathyroidism - Nephrology following - HD TThS - VasCath placed 03/13 - AV fistula 03/25 - Avoid nephrotoxins - Continue Phoslo and calcitriol - Continue Bumex - Monitor renal function - Case management assisting with dialysis chair placement as patient homeless and uninsured 2. HTN - Stable - Continue Norvasc, Bumex, and hydralazine - Clonidine PRN 3. Cocaine abuse - UDS + for cocaine - Prior counseled on cessation 4. Hepatitis C - Patient was approved for Harvoni treatment last year but did not follow-up as outpatient - Avoid hepatotoxic agents - Periodically monitor LFTs 5. Thrombocytopenia - History of HCV as above - No active bleeding - F/U as outpatient 6. Anemia of chronic disease - Likely secondary to ESRD - No acute bleeding - To be followed DVT prophylaxis: Heparin Discussed Condition With: Patient Discharge Planning: Needs ongoing HD treatment. He is homeless and has no payor source. Case management assisting with D/C needs. (1) Acute renal failure Qualifiers: Acute renal failure type: unspecified Qualified Code(s): N17.9 - Acute kidney failure, unspecified (3) HTN (hypertension) Qualifiers: Hypertension type: renovascular hypertension Qualified Code(s): I15.0 - Renovascular hypertension
--- NOTE | 2018-04-01 12:14 | P.PNNP ---
Subjective Interval history: No new issues. Dialysis going well. Still waiting for Medicare to finalize. <Sydnee Morrison - Last Filed: 04/01/18 12:12> Physical Exam Vital signs: Vital Signs 03/31/18 13:27 03/31/18 16:00 03/31/18 20:00 Temperature 98.5 F 98 F Pulse Rate 75 75 77 Respiratory Rate 23 18 Blood Pressure 124/76 129/66 Pulse Oximetry 95 95 03/31/18 23:58 04/01/18 00:00 04/01/18 04:00 Temperature 98.1 F 98 F Pulse Rate 71 72 65 Respiratory Rate 18 18 Blood Pressure 127/64 122/69 Pulse Oximetry 95 95 04/01/18 08:00 Temperature 97.4 F L Pulse Rate 66 Respiratory Rate 21 Blood Pressure 151/85 H Pulse Oximetry 95 Intake & Output 03/31/18 04/01/18 04/01/18 18:59 06:59 18:59 Intake Total 1300 / 1300 960 / 960 Output Total 1300 / 1300 Balance 1300 / 1300 -340 / -340 Intake: Oral 1300 / 1300 960 / 960 Output: Urine 1300 / 1300 Other: # Voids 500 Date of Last Bowel Movement 03/29/18 # Bowel Movements 1 - Constitutional no acute distress, thin, chronically ill appearing, disheveled, cooperative - Routine HEENT Exam Head: Present: normocephalic - Routine Neck Exam Present: supple, full ROM - Routine Respiratory Exam Absent: accessory muscle use - Routine Cardiovascular Exam Present: RRR, S1, S2 - Routine Abdominal Exam Present: soft, normoactive bowel sounds - Routine Extremities Exam Present: full ROM. Absent: edema - Routine Skin Exam Present: intact, dry, warm - Routine Neurological Exam Present: alert, oriented X3, CN II-XII intact - Detailed Neurological Exam: Coma Scale Eye Opening: Spontaneous Verbal Response: Oriented Motor Response: Obey commands Thaddeus Coma Scale Total: 15 - Routine Psychiatric Exam Present: normal affect <Sydnee Morrison - Last Filed: 04/01/18 12:12> Vital signs: Vital Signs 04/02/18 12:30 04/02/18 16:00 04/02/18 20:00 Temperature 97.1 F L 98.2 F 98.2 F Pulse Rate 72 80 82 Respiratory Rate 18 18 18 Blood Pressure 158/85 H 151/78 H 142/76 H Pulse Oximetry 97 97 94 L 04/03/18 00:00 04/03/18 04:00 Temperature 98.5 F 97.5 F L Pulse Rate 76 69 Respiratory Rate 16 16 Blood Pressure 145/89 H 125/73 Pulse Oximetry 95 96 Intake & Output 04/02/18 04/03/18 04/03/18 18:59 06:59 18:59 Output Total 2150 / 2150 1075 / 1075 Balance -2150 / -2150 -1075 / -1075 Output: Urine 150 / 150 1075 / 1075 Hemodialysis Amount 1999 Other: # Bowel Movements 1 <David Smith - Last Filed: 04/03/18 09:00> Assessment and Plan - Assessment (1) ESRD (end stage renal disease) Code(s): N18.6 - End stage renal disease Status: Acute Plan: Prior biopsy proven Hepatitis C related MPGN. He was able to come off dialysis in 2013. In 2015 his Creatinine was 2.3. s/p renal biopsy here. He has reached ESRD. PermCath placement and HD initiated 03/13. Continue dialysis support TTS. He is non oliguric, on Bumex once daily. S/P AVF creation 03/25. Will need to follow with vascular. On a high protein, low K diet. Obtain labs intermittently. Most recent were reviewed. He is homeless and uninsured. Will need these issues addressed for outpatient HD plans. He will need to enter the transitional program at [facility], reports he was able to secure a residence. He is also a [place] , CM was asked to look into possible benefits. (2) Secondary hyperparathyroidism of renal origin Code(s): N25.81 - Secondary hyperparathyroidism of renal origin Status: Chronic Plan: With hypocalcemia On vitamin D and calcitriol. On calcium acetate with meals for metabolic bone disorder. (3) HTN (hypertension) Code(s): I10 - Essential (primary) hypertension Status: Chronic Qualifiers: Hypertension type: renovascular hypertension Qualified Code(s): I15.0 - Renovascular hypertension Plan: On Amlodipine, Bumex, and Hydralazine. PRN clonidine is ordered. Fluid removal as needed with dialysis. <Sydnee Morrison - Last Filed: 04/01/18 12:12> - Assessment (1) ESRD (end stage renal disease) Code(s): N18.6 - End stage renal disease Status: Acute (2) Secondary hyperparathyroidism of renal origin Code(s): N25.81 - Secondary hyperparathyroidism of renal origin Status: Chronic (3) HTN (hypertension) Code(s): I10 - Essential (primary) hypertension Status: Chronic Qualifiers: Hypertension type: renovascular hypertension Qualified Code(s): I15.0 - Renovascular hypertension - Attending Attestation patient was seen and examined. Agree with above assessment and plan. <David Smith - Last Filed: 04/03/18 09:00>
[2018-04-01] MEDS: Melatonin 5 MG Tablet PO PRN (23:06)
[2018-04-02] MEDS: amLODIPine 10 MG Tablet PO SCH (08:07)
[2018-04-02] MEDS: Senna/Docusate Sodium 8.6/50 MG Tablet PO SCH ×2 (08:07→23:14)
[2018-04-02] MEDS: Calcium Acetate 667 MG Capsule PO SCH ×3 (08:08→17:37)
[2018-04-02] MEDS: Calcitriol 0.25 MCG Capsule PO SCH (08:08)
[2018-04-02] MEDS: Heparin - SQ 10,000 UNITS/ML Vial SQ SCH ×2 (08:09→23:14)
--- NOTE | 2018-04-02 09:18 | P.PNIM ---
Subjective Interval history: Patient states that he found a new address and home and wants to talk to the [facility] to change the address. No overall complaints overnight. Waiting for dialysis today. Physical Exam Vital signs: Vital Signs 04/01/18 13:21 04/01/18 16:00 04/01/18 17:39 Temperature 97.8 F 97.9 F 97.8 F Pulse Rate 77 85 75 Respiratory Rate 18 19 18 Blood Pressure 140/83 131/70 121/80 Pulse Oximetry 95 96 97 04/01/18 20:00 04/02/18 00:40 04/02/18 04:00 Temperature 98.0 F 98.0 F 98.5 F Pulse Rate 73 71 66 Respiratory Rate 18 19 Blood Pressure 142/82 H 131/76 128/76 Pulse Oximetry Intake & Output 04/01/18 04/02/18 04/02/18 18:59 06:59 18:59 Output Total 1000 / 1000 700 / 700 Balance -1000 / -1000 -700 / -700 Output: Urine 1000 / 1000 700 / 700 Other: Date of Last Bowel Movement 04/01/18 Narrative: GENERAL: WN, WD pleasant male resting in bed in NAD. SKIN: Warm and dry. Vascath R chest no surrounding erythema. NECK: Supple no tender LAD or JVD. HEART: Regular rate and rhythm LUNGS: CTAB without wheezes or crackles. ABDOMEN: +BS, soft, NT, ND. EXTREMITIES: No LE edema. AV fistula L wrist. NEURO: Awake and alert. Nonfocal. PSYCH: Appropriate mood and affect. Results - Labs CBC & Chem 7: 04/01/18 07:20 04/01/18 07:20 Laboratory Results - last 24 hr 04/01/18 04/01/18 07:20 07:20 WBC 3.7 L RBC 3.74 L Hgb 10.9 L Hct 32.3 L MCV 86.2 MCH 29.2 MCHC 33.8 RDW 14.0 Plt Count 101 L MPV 8.7 Sodium 138 Potassium 5.1 Chloride 102 Carbon Dioxide 23.5 Anion Gap 13 BUN 65 H Creatinine 6.07 H Estimated GFR 10 L Random Glucose 82 Calcium 8.6 - Procedures PERMACATH 03-13 BY IR RENAL BIOPSY 03-14 Assessment and Plan - Assessment (1) Acute renal failure Code(s): N17.9 - Acute kidney failure, unspecified Status: Acute (2) Hypocalcemia Code(s): E83.51 - Hypocalcemia Status: Resolved (3) HTN (hypertension) Code(s): I10 - Essential (primary) hypertension Status: Chronic (4) Secondary hyperparathyroidism of renal origin Code(s): N25.81 - Secondary hyperparathyroidism of renal origin Status: Chronic - Plan 52-year-old male with HTN and hepatitic C associated MGNP admited 03/12 for acute renal failure requiring diaysis. 1. Acute renal failure ARF/ESRD - Prior bx with proven MPGN secondary to HCV - Pt now likely in ESRD with secondary hyperparathyroidism - Nephrology following - HD TuThSat - VasCath placed 03/13 - AV fistula 03/25 - Avoid nephrotoxins - Continue Phoslo and calcitriol - Continue Bumex - Monitor renal function - Case management assisting with dialysis chair placement as patient uninsured 2. HTN, chronic essential with end-stage renal disease - Stable - Continue Norvasc, Bumex, and hydralazine - Clonidine PRN 3. Cocaine abuse - UDS + for cocaine - Prior counseled on cessation 4. Hepatitis C - Patient was approved for Harvoni treatment last year but did not follow-up as outpatient - Avoid hepatotoxic agents - Periodically monitor LFTs 5. Thrombocytopenia - History of HCV as above - No active bleeding - F/U as outpatient 6. Anemia of chronic disease - Likely secondary to ESRD - No acute bleeding - To be followed, Epogen 7. DVT prophylaxis: Heparin Discharge Planning: Needs ongoing HD treatment as an outpatient. He has no payor source. Case management assisting with D/C needs. (1) Acute renal failure Qualifiers: Acute renal failure type: unspecified Qualified Code(s): N17.9 - Acute kidney failure, unspecified (3) HTN (hypertension) Qualifiers: Hypertension type: renovascular hypertension Qualified Code(s): I15.0 - Renovascular hypertension
[2018-04-02] MEDS: Heparin 10,000 UNITS/10 ML Vial (for IV use) OTHER PRN (11:22)
--- NOTE | 2018-04-02 15:23 | P.PNNP ---
Subjective Interval history: Seen during dialysis. No new issues. Eating well. Dialysis going well. Still waiting for Medicare to finalize. <Sydnee Morrison - Last Filed: 04/02/18 15:21> Physical Exam Vital signs: Vital Signs 04/01/18 16:00 04/01/18 17:39 04/01/18 20:00 Temperature 97.9 F 97.8 F 98.0 F Pulse Rate 85 75 73 Respiratory Rate 19 18 18 Blood Pressure 131/70 121/80 142/82 H Pulse Oximetry 96 97 04/02/18 00:40 04/02/18 04:00 04/02/18 08:00 Temperature 98.0 F 98.5 F 96.9 F L Pulse Rate 71 66 66 Respiratory Rate 19 16 Blood Pressure 131/76 128/76 167/97 H Pulse Oximetry 97 04/02/18 12:30 Temperature 97.1 F L Pulse Rate 72 Respiratory Rate 18 Blood Pressure 158/85 H Pulse Oximetry 97 Intake & Output 04/01/18 04/02/18 04/02/18 18:59 06:59 18:59 Output Total 1000 / 1000 700 / 700 2150 / 2150 Balance -1000 / -1000 -700 / -700 -2150 / -2150 Output: Urine 1000 / 1000 700 / 700 150 / 150 Hemodialysis Amount 1999 Other: Date of Last Bowel Movement 04/01/18 - Constitutional no acute distress, chronically ill appearing, disheveled - Routine HEENT Exam Head: Present: normocephalic - Routine Neck Exam Present: supple, full ROM - Routine Respiratory Exam Present: CTA bilaterally. Absent: accessory muscle use - Routine Cardiovascular Exam Present: RRR, S1, S2 - Routine Abdominal Exam Present: soft, normoactive bowel sounds - Routine Extremities Exam Present: full ROM, pulses intact. Absent: edema - Routine Skin Exam Present: intact, dry, warm - Routine Neurological Exam Present: alert, oriented X3 - Detailed Neurological Exam: Coma Scale Eye Opening: Spontaneous Verbal Response: Oriented Motor Response: Obey commands Thaddeus Coma Scale Total: 15 - Routine Psychiatric Exam Present: normal affect, normal thought process <Sydnee Morrison - Last Filed: 04/02/18 15:21> Vital signs: Vital Signs 04/02/18 12:30 04/02/18 16:00 04/02/18 20:00 Temperature 97.1 F L 98.2 F 98.2 F Pulse Rate 72 80 82 Respiratory Rate 18 18 18 Blood Pressure 158/85 H 151/78 H 142/76 H Pulse Oximetry 97 97 94 L 04/03/18 00:00 04/03/18 04:00 04/03/18 08:00 Temperature 98.5 F 97.5 F L 97.8 F Pulse Rate 76 69 70 Respiratory Rate 16 16 20 Blood Pressure 145/89 H 125/73 158/90 H Pulse Oximetry 95 96 98 Intake & Output 04/02/18 04/03/18 04/03/18 18:59 06:59 18:59 Output Total 2150 / 2150 1075 / 1075 Balance -2150 / -2150 -1075 / -1075 Output: Urine 150 / 150 1075 / 1075 Hemodialysis Amount 1999 Other: # Bowel Movements 1 <David Smith - Last Filed: 04/03/18 09:25> Assessment and Plan - Assessment (1) ESRD (end stage renal disease) Code(s): N18.6 - End stage renal disease Status: Acute Plan: Prior biopsy proven Hepatitis C related MPGN. He was able to come off dialysis in 2013. In 2016 his Creatinine was 2.3. s/p renal biopsy here. He has reached ESRD. PermCath placement and HD initiated 03/13. Seen during HD today on a 2K, 350 BFR, goal 2L. Continue dialysis support TTS. He is non oliguric, on Bumex once daily. S/P AVF creation 03/25. Will need to follow with vascular. On a high protein, low K diet. Obtain labs intermittently. Most recent were reviewed. He is homeless and uninsured. Will need these issues addressed for outpatient HD plans. He will need to enter the transitional program at [facility] reports he was able to secure a residence. He is also a [place] , CM was asked to look into possible benefits. (2) Secondary hyperparathyroidism of renal origin Code(s): N25.81 - Secondary hyperparathyroidism of renal origin Status: Chronic Plan: With hypocalcemia On vitamin D and calcitriol. On calcium acetate with meals for metabolic bone disorder. (3) HTN (hypertension) Code(s): I10 - Essential (primary) hypertension Status: Chronic Qualifiers: Hypertension type: renovascular hypertension Qualified Code(s): I15.0 - Renovascular hypertension Plan: On Amlodipine, Bumex, and Hydralazine. PRN clonidine is ordered. Fluid removal as needed with dialysis. <Sydnee Morrison - Last Filed: 04/02/18 15:21> - Assessment (1) ESRD (end stage renal disease) Code(s): N18.6 - End stage renal disease Status: Acute (2) Secondary hyperparathyroidism of renal origin Code(s): N25.81 - Secondary hyperparathyroidism of renal origin Status: Chronic (3) HTN (hypertension) Code(s): I10 - Essential (primary) hypertension Status: Chronic Qualifiers: Hypertension type: renovascular hypertension Qualified Code(s): I15.0 - Renovascular hypertension - Attending Attestation patient was seen and examined. Agree with above assessment and plan. <David Smith - Last Filed: 04/03/18 09:25>
[2018-04-02] MEDS: Melatonin 5 MG Tablet PO PRN (23:14)
[2018-04-03 09:24] VITALS: RESP 20
--- NOTE | 2018-04-03 09:51 | P.PNIM ---
Subjective Interval history: No complaints. Waiting to see case management and off premise service representative to get his address Physical Exam Vital signs: Vital Signs 04/02/18 12:30 04/02/18 16:00 04/02/18 20:00 Temperature 97.1 F L 98.2 F 98.2 F Pulse Rate 72 80 82 Respiratory Rate 18 18 18 Blood Pressure 158/85 H 151/78 H 142/76 H Pulse Oximetry 97 97 94 L 04/03/18 00:00 04/03/18 04:00 04/03/18 08:00 Temperature 98.5 F 97.5 F L 97.8 F Pulse Rate 76 69 70 Respiratory Rate 16 16 20 Blood Pressure 145/89 H 125/73 158/90 H Pulse Oximetry 95 96 98 Intake & Output 04/02/18 04/03/18 04/03/18 18:59 06:59 18:59 Output Total 2150 / 2150 1075 / 1075 Balance -2150 / -2150 -1075 / -1075 Output: Urine 150 / 150 1075 / 1075 Hemodialysis Amount 1999 Other: # Bowel Movements 1 Narrative: GENERAL: WN, WD pleasant male resting in bed in NAD. SKIN: Warm and dry. Vascath R chest no surrounding erythema. NECK: Supple no tender LAD or JVD. HEART: Regular rate and rhythm LUNGS: CTAB without wheezes or crackles. ABDOMEN: +BS, soft, NT, ND. EXTREMITIES: No LE edema. AV fistula L wrist. NEURO: Awake and alert. Nonfocal. PSYCH: Appropriate mood and affect. Results - Labs CBC & Chem 7: 04/01/18 07:20 04/01/18 07:20 - Procedures PERMACATH 03-13 BY IR RENAL BIOPSY 03-14 Assessment and Plan - Assessment (1) Acute renal failure Code(s): N17.9 - Acute kidney failure, unspecified Status: Acute (2) Hypocalcemia Code(s): E83.51 - Hypocalcemia Status: Resolved (3) HTN (hypertension) Code(s): I10 - Essential (primary) hypertension Status: Chronic (4) Secondary hyperparathyroidism of renal origin Code(s): N25.81 - Secondary hyperparathyroidism of renal origin Status: Chronic - Plan 52-year-old male with HTN and hepatitic C associated MGNP admited 03/12 for acute renal failure requiring diaysis. 1. Acute renal failure ARF/ESRD - Prior bx with proven MPGN secondary to HCV - Pt now likely in ESRD with secondary hyperparathyroidism - Nephrology following - HD TuThSat - VasCath placed 03/13 - AV fistula 03/25 - Avoid nephrotoxins - Continue Phoslo and calcitriol - Continue Bumex - Monitor renal function - Case management assisting with dialysis chair placement as patient uninsured 2. HTN, chronic essential with end-stage renal disease - Stable - Continue Norvasc, Bumex, and hydralazine - Clonidine PRN 3. Cocaine abuse - UDS + for cocaine - Prior counseled on cessation 4. Hepatitis C - Patient was approved for Harvoni treatment last year but did not follow-up as outpatient - Avoid hepatotoxic agents - Periodically monitor LFTs 5. Thrombocytopenia - History of HCV as above - No active bleeding - F/U as outpatient 6. Anemia of chronic disease - Likely secondary to ESRD - No acute bleeding - To be followed, Epogen 7. DVT prophylaxis: Heparin Discharge Planning: Needs ongoing HD treatment as an outpatient. He has no payor source. Case management assisting with D/C needs. (1) Acute renal failure Qualifiers: Acute renal failure type: unspecified Qualified Code(s): N17.9 - Acute kidney failure, unspecified (3) HTN (hypertension) Qualifiers: Hypertension type: renovascular hypertension Qualified Code(s): I15.0 - Renovascular hypertension
--- NOTE | 2018-04-03 10:05 | P.DS ---
Date of admission: 03/12/18 00:59 Primary care physician: No Primary Care Physician Brief History from admission: 52 y/o male with a history of HTN presented to the ED with complaints of decreased urination and hematuria for the last week. He states that for the last week he has been having blood in his urine with associated weakness. Denies any chest pain, sob, nausea or dysuria. He states years ago he had the same situation and underwent dialysis temporary. He states he does not take any medications or see a pcp. DS: Diagnosis - Discharge Diagnosis (1) Acute renal failure Status: Acute Diagnosis: Principal (2) Hypocalcemia Status: Resolved Diagnosis: Secondary (3) HTN (hypertension) Status: Chronic Diagnosis: Secondary (4) Secondary hyperparathyroidism of renal origin Status: Chronic Diagnosis: Secondary DS: Medications - Discharge Medications Prescriptions: amlodipine [Norvasc] 10 mg PO DAILY #30 tab bumetanide 2 mg PO DAILY #30 tab calcium acetate 667 mg PO TID #90 cap hydralazine 100 mg PO TID #90 tab DS: Summary Hospital Course: These are the medical issues addressed during this hospitalization: 52-year-old male with HTN and hepatitic C associated MGNP admited 03/12 for acute renal failure requiring diaysis. 1. Acute renal failure ARF/ESRD - Prior bx with proven MPGN secondary to HCV - Pt now likely in ESRD with secondary hyperparathyroidism - Nephrology following - HD TuThSat - VasCath placed 03/13 - AV fistula 03/25 - Avoid nephrotoxins - Continue Phoslo and calcitriol - Continue Bumex - Monitor renal function - Case management assisting with dialysis chair placement as patient uninsured 2. HTN, chronic essential with end-stage renal disease - Stable - Continue Norvasc, Bumex, and hydralazine - Clonidine PRN 3. Cocaine abuse - UDS + for cocaine - Prior counseled on cessation 4. Hepatitis C - Patient was approved for [facility] treatment last year but did not follow-up as outpatient - Avoid hepatotoxic agents - Periodically monitor LFTs 5. Thrombocytopenia - History of HCV as above - No active bleeding - F/U as outpatient 6. Anemia of chronic disease - Likely secondary to ESRD - No acute bleeding - To be followed, Epogen 7. DVT prophylaxis: Heparin Discharge to home when outpatient dialysis is arranged. - Time Spent with Patient Total time spent providing and/or coordinating discharge services: Less than 30 minutes Exam Vital signs: Vital Signs 04/02/18 12:30 04/02/18 16:00 04/02/18 20:00 Temperature 97.1 F L 98.2 F 98.2 F Pulse Rate 72 80 82 Respiratory Rate 18 18 18 Blood Pressure 158/85 H 151/78 H 142/76 H Pulse Oximetry 97 97 94 L 04/03/18 00:00 04/03/18 04:00 04/03/18 08:00 Temperature 98.5 F 97.5 F L 97.8 F Pulse Rate 76 69 70 Respiratory Rate 16 16 20 Blood Pressure 145/89 H 125/73 158/90 H Pulse Oximetry 95 96 98 Intake & Output 04/02/18 04/03/18 04/03/18 18:59 06:59 18:59 Output Total 2150 / 2150 1075 / 1075 Balance -2150 / -2150 -1075 / -1075 Output: Urine 150 / 150 1075 / 1075 Hemodialysis Amount 1999 Other: # Bowel Movements 1 Narrative: GENERAL: This is a well-nourished, well-developed patient, in no apparent distress. CARDIOVASCULAR: Regular rate and rhythm without murmurs, gallops, or rubs. RESPIRATORY: Clear to auscultation. Breath sounds equal bilaterally. No wheezes , rales, or rhonchi. GASTROINTESTINAL: Abdomen soft, non-tender, nondistended. Normal active bowel sounds MUSCULOSKELETAL: Extremities without clubbing, cyanosis, or edema. NEURO: Alert & Oriented x4 to person, place, time, situation. Moves all ext x4 Results Procedures completed during hospitalization: PERMACATH 03-13 BY IR RENAL BIOPSY 03-14 - Impressions ITS Impressions Abdomen/Pelvis CT 03/11/18 22:35 CONCLUSION: 1. CT findings characteristic of chronic pancreatitis. 2. Fluid-filled, mildly distended small bowel loops throughout the abdomen with stool identified in the colon. No findings of obstruction, however. Findings could represent a mild hypodynamic ileus. 3. I do not see an obvious etiology for the patient's flank pain and hematuria. Specifically, no hydronephrosis or stones. Central Venous Line 03/13/18 00:00 CONCLUSION: Chest X-Ray 03/14/18 00:00 CONCLUSION: 1. Interval placement of right double lumen central venous line. 2. Mild hazy opacity in both lungs which appears mildly increased. This could represent a viral pneumonitis or interstitial lung changes. Renal Biopsy CT 03/14/18 08:00 CONCLUSION: Upper Extremity Ultrasound 03/20/18 00:00 CONCLUSION: 1. Venous mapping as above. Venous Doppler Study 03/20/18 00:00 CONCLUSION: 1. The study is negative for bilateral upper extremity deep venous thrombosis. Discharge Plan - Discharge Disposition Patient Disposition: Discharge Home - Discharge Condition Condition: Good - Discharge Order Discharge Orders: Discharge Order (Routine); Ordered 04/03/18 Ordered By: Falguni Conte Vascular Surgery Clear for Discharge (Routine); Ordered 03/26/18 Ordered By: Sangita Carmen - Physicians Team Primary Care Provider: Primary Care Jessie,Donna Attending Provider: Falguni Conte Other Providers: David Smith MD ; Karl Ferrer MD
[2018-04-03] MEDS: Senna/Docusate Sodium 8.6/50 MG Tablet PO SCH (10:31)
[2018-04-03] MEDS: Calcium Acetate 667 MG Capsule PO SCH ×3 (10:31→17:09)
[2018-04-03] MEDS: Heparin - SQ 10,000 UNITS/ML Vial SQ SCH (10:32)
[2018-04-03] MEDS: Calcitriol 0.25 MCG Capsule PO SCH (10:34)
[2018-04-03] MEDS: amLODIPine 10 MG Tablet PO SCH (10:34)
[2018-04-03 12:42] VITALS: PULSE 87
--- NOTE | 2018-04-03 13:13 | P.PNNP ---
Subjective Interval history: May be discharged today. No new issues. <Sydnee Morrison - Last Filed: 04/03/18 13:07> Physical Exam Vital signs: Vital Signs 04/02/18 16:00 04/02/18 20:00 04/03/18 00:00 Temperature 98.2 F 98.2 F 98.5 F Pulse Rate 80 82 76 Respiratory Rate 18 18 16 Blood Pressure 151/78 H 142/76 H 145/89 H Pulse Oximetry 97 94 L 95 04/03/18 04:00 04/03/18 08:00 04/03/18 12:41 Temperature 97.5 F L 97.8 F Pulse Rate 69 70 87 Respiratory Rate 16 20 Blood Pressure 125/73 158/90 H Pulse Oximetry 96 98 Intake & Output 04/02/18 04/03/18 04/03/18 18:59 06:59 18:59 Output Total 2150 / 2150 1075 / 1075 200 / 200 Balance -2150 / -2150 -1075 / -1075 -200 / -200 Output: Urine 150 / 150 1075 / 1075 200 / 200 Hemodialysis Amount 1999 Other: # Bowel Movements 1 - Constitutional no acute distress, thin, cachectic, chronically ill appearing, cooperative - Routine HEENT Exam Head: Present: normocephalic - Routine Neck Exam Present: supple, full ROM - Routine Respiratory Exam Present: CTA bilaterally. Absent: accessory muscle use - Routine Cardiovascular Exam Present: RRR, S1, S2 - Routine Abdominal Exam Present: soft, normoactive bowel sounds - Routine Extremities Exam Present: full ROM. Absent: edema - Routine Skin Exam Present: intact, dry, warm - Routine Neurological Exam Present: alert, oriented X3, CN II-XII intact, moving all extremities - Detailed Neurological Exam: Coma Scale Eye Opening: Spontaneous Verbal Response: Oriented Motor Response: Obey commands Thaddeus Coma Scale Total: 15 - Routine Psychiatric Exam Present: normal affect, normal thought process <Sydnee Morrison - Last Filed: 04/03/18 13:07> Vital signs: Vital Signs 04/03/18 08:00 04/03/18 12:00 04/03/18 12:41 Temperature 97.8 F 97.9 F Pulse Rate 70 74 87 Respiratory Rate 20 20 Blood Pressure 158/90 H 135/77 Pulse Oximetry 98 97 Intake & Output 04/03/18 04/04/18 04/04/18 18:59 06:59 18:59 Output Total 200 / 200 Balance -200 / -200 Output: Urine 200 / 200 <David Smith - Last Filed: 04/04/18 07:49> Assessment and Plan - Assessment (1) ESRD (end stage renal disease) Code(s): N18.6 - End stage renal disease Status: Acute Plan: Prior biopsy proven Hepatitis C related MPGN. He was able to come off dialysis in 2013. In 2015 his Creatinine was 2.3. s/p renal biopsy here. He has reached ESRD. PermCath placement and HD initiated 03/13. Continue dialysis support TTS. S/P AVF creation 03/25. Will need to follow with vascular outpatient. He is non oliguric, on Bumex once daily. On a high protein, low K diet encouraged. The plan is for the patient to be discharged today, go to [facility] around 3pm tomorrow for first outpatient HD and that way he will not need the transitional program. If he is not approved by [facility] (by today) to have outpatient HD dialysis pending Medicare approval, he will be discharged to his new home and come [place] [facility] he gets approval to go to [facility]. D/W Dr. Conte. (2) Secondary hyperparathyroidism of renal origin Code(s): N25.81 - Secondary hyperparathyroidism of renal origin Status: Chronic Plan: With hypocalcemia On vitamin D and calcitriol. On calcium acetate with meals for metabolic bone disorder. (3) HTN (hypertension) Code(s): I10 - Essential (primary) hypertension Status: Chronic Qualifiers: Hypertension type: renovascular hypertension Qualified Code(s): I15.0 - Renovascular hypertension Plan: On Amlodipine, Bumex, and Hydralazine. PRN clonidine is ordered. Fluid removal as needed with dialysis. <Sydnee Morrison - Last Filed: 04/03/18 13:07> - Assessment (1) ESRD (end stage renal disease) Code(s): N18.6 - End stage renal disease Status: Acute (2) Secondary hyperparathyroidism of renal origin Code(s): N25.81 - Secondary hyperparathyroidism of renal origin Status: Chronic (3) HTN (hypertension) Code(s): I10 - Essential (primary) hypertension Status: Chronic Qualifiers: Hypertension type: renovascular hypertension Qualified Code(s): I15.0 - Renovascular hypertension - Attending Attestation patient was seen and examined. Agree with above assessment and plan. <David Smith - Last Filed: 04/04/18 07:49>
[2018-04-03 14:54] VITALS: BP 135/77; TEMP 97.9; O2SAT 97
== END 2018-04-03 18:07 | disposition home or self-care (01) ==
LOC: NEPE 22:25 → NEDA 03-12 00:59 → NEDH 03-12 04:52 → N05 03-12 14:48
PROVIDERS: ADMIT Family Medicine; ATTEND Family Medicine
PROC: AVGFTUE (ICD-10-PCS; 2018-03-25 13:26)